=== PATIENT | male | born 1950 | race African-American/Black ===

== ENCOUNTER 2018-12-29 23:21 | Inpatient (IN) | payer MEDICAID ==
[~2018-12-29] VITALS: Ht 162.6 cm; Wt 69.9 kg
[2018-12-29 23:23] VITALS: BP 190/98
--- NOTE | 2018-12-29 23:25 | NUR ---
ED Nurse Note: pt brought in by [facility] ambulance unit # [id number] via gurney from [facility]. C/C of bloody stool. noted with red stool this morning.
[2018-12-29] MEDS ORDERED: COLACE100 MG ORAL (23:29)
[2018-12-29] MEDS ORDERED: DULCOLAX10 MG RC (23:29)
[2018-12-29] MEDS ORDERED: CRANBERRY450 M5 PO (23:29)
[2018-12-29] MEDS ORDERED: ASPIRIN-LOW81 MG ORAL (23:29)
[2018-12-29] MEDS ORDERED: DILTIAZEM HCL120 MG PO (23:29)
[2018-12-29] MEDS ORDERED: ENALAPRIL MALEA20 MG ORAL (23:29)
[2018-12-29] MEDS ORDERED: LIPITOR80 MG ORAL (23:29)
[2018-12-29] MEDS ORDERED: MOM30 ML ORAL (23:29)
[2018-12-29] MEDS ORDERED: FLEET ENEMA133 M1 RC (23:29)
[2018-12-29] MEDS ORDERED: VITAMIN D400 INTLU ORAL (23:29)
[2018-12-29] MEDS ORDERED: ACETAMINOPHEN325 M1 ORAL (23:29)
[2018-12-29] MEDS ORDERED: METOPROLOL TAR100 MG ORAL (23:29)
[2018-12-29] MEDS ORDERED: SENNA LAXATIVE8.6 MG PO (23:29)
[2018-12-29 23:54] LABS: BASOPHILS % (AUTO) 1.6 % (0.0-2.0); EOSINOPHILS % (AUTO) 7.6 % (0.0-3.0); HEMATOCRIT 46.5 % (42.0-52.0); HEMOGLOBIN 15.3 G/DL (14.2-18.0); LYMPHOCYTES % (AUTO) 32.1 % (20.0-45.0); MEAN CORPUSCULAR VOLUME 92 FL (80-99); MONOCYTES % (AUTO) 10.1 % (1.0-10.0); NEUTROPHILS % (AUTO) 48.6 % (45.0-75.0); PLATELET COUNT 280 K/UL (150-450); RED BLOOD COUNT 5.03 M/UL (4.70-6.10); RED CELL DISTRIBUTION WIDTH 13.5 % (11.6-14.8); WHITE BLOOD COUNT 6.6 K/UL (4.8-10.8)
[2018-12-29 23:56] LABS: APPEARANCE,URINE CLEAR; BILIRUBIN, URINE NEGATIVE (NEGATIVE); COLOR,URINE PALE YELLOW; GLUCOSE, URINE (UA) NEGATIVE (NEGATIVE); KETONES,URINE NEGATIVE (NEGATIVE); LEUKOCYTE ESTERASE ,URINE 1+ (NEGATIVE); NITRITE,URINE NEGATIVE (NEGATIVE); PH,URINE 6 (4.5-8.0); PROTEIN,URINE NEGATIVE (NEGATIVE); UROBILINOGEN,URINE NORMAL MG/DL (0.0-1.0)
--- NOTE | 2018-12-30 00:01 | NUR ---
ED Nurse Note: pt had a BM, soft, browinsh rednish in color.
[2018-12-30 00:07] LABS: ANION GAP 4 mmol/L (5-15); BLOOD UREA NITROGEN 21 mg/dL (7-18); CARBON DIOXIDE 28 MMOL/L (21-32); CHLORIDE 106 MMOL/L (98-107); POTASSIUM 4.6 MMOL/L (3.5-5.1); SODIUM 138 MMOL/L (136-145)
[2018-12-30 00:09] LABS: INR 1.1 (0.9-1.1)
[2018-12-30 00:11] LABS: ALANINE AMINOTRANSFERASE 35 U/L (12-78); ALBUMIN 2.8 G/DL (3.4-5.0); ALBUMIN/GLOBULIN RATIO 0.6 (1.0-2.7); ALKALINE PHOSPHATASE 91 U/L (46-116); ASPARTATE AMINO TRANSFERASE 26 U/L (15-37); BILIRUBIN,TOTAL 0.3 MG/DL (0.2-1.0)
[2018-12-30] MEDS: D5NS 1,000 ML IV SCH ×3 (00:54→17:18)
[2018-12-30] MEDS ORDERED: Miralax 17gm pkt ORAL PRN (01:00)
[2018-12-30] MEDS ORDERED: Nitroglycerin Subl 0.4mg tab SL PRN (01:00)
[2018-12-30] MEDS ORDERED: Morphine Sulfate 2mg/ml Inj(IV/IM USE ONLY) IVP PRN (01:00)
[2018-12-30] MEDS ORDERED: Phytonadione 10 MG in D5W 55 ML IVPB ONE (01:00)
--- NOTE | 2018-12-30 01:15 | NUR ---
NURSE NOTES: Received patient from Marci MENDOZA. Patient is awake, in bed, clean with no signs of acute distress. Pt is on RA, saturating at 96%, nonverbal with eyes open and occasionally tracking, and NPO. No skin issues found, one bowl movement during assessment, condom cath placed, and belongings noted. BP 198/99 pulse of 75; Dr. Huertas notified. Pt on electronic device monitor, bed at its lowest position, call light in reach, and X 3 bedrails are up. Addendum: 12/30/18 at 0645 by Paul Zimmer RN Time: correction 0119
--- NOTE | 2018-12-30 01:18 | NUR ---
ED Nurse Note: pt brought up to SDU room 239-1 via stephenrsheila. VSS. Report given to REJI Miller.
--- NOTE | 2018-12-30 02:44 | NUR ---
NURSE NOTES: Patients BP is 187/117 pules of 65 with no signs of distress. Dr. Huertas notified.
[2018-12-30 04:00] VITALS: BP 159/113
--- NOTE | 2018-12-30 06:44 | NUR ---
NURSE NOTES: Left a message with Dr Huertas to continue home medications. No call back since admission.
--- NOTE | 2018-12-30 07:10 | NUR ---
HAND-OFF: Report given to Laurie Bradshaw RN.
--- NOTE | 2018-12-30 07:20 | NUR ---
NURSE NOTES: Received the patient from REJI Miller. Patient is awake, opens eyes spontaneously, able to follow simple commands, non-verbal. SR HR 60s noted on the monitor. On room air. No s/sx of pain noted at this time. patient kept NPO. Patient on condom cath. Left wrist 20G and right wrist 20G intact, running D5NS at 100ml/hr. Bed in lowest position, locked, side rails upx3. Bed alarm on. Call light within reach. Will continue to monitor.
[2018-12-30 08:00] VITALS: BP 135/94
--- NOTE | 2018-12-30 10:00 | NUR ---
NURSE NOTES: Patient was turned and repositioned. patient kept clean and dry.
--- NOTE | 2018-12-30 11:00 | NUR ---
NURSE NOTES: patient had a small brown normal bm x1. No active bleeding noted.
[2018-12-30 12:00] VITALS: BP 153/103
--- NOTE | 2018-12-30 12:06 | Consultation ---
History of Present Illness General Date patient seen: Dec 30, 2018 Chief Complaint: Gastrointestinal Bleed Present Illness Allergies: Coded Allergies: No Known Allergies (Unverified , 12/29/18) Medication History Scheduled Aspirin (Aspirin EC), 325 MG ORAL DAILY, (Reported) Atorvastatin (Lipitor), 40 MG ORAL BEDTIME, (Reported) Diltiazem Hcl (Diltiazem Hcl), 120 MG PO DAILY, (Reported) Docusate Sodium* (Colace*), 100 MG ORAL DAILY, (Reported) Enalapril Maleate* (Enalapril Maleate*), 40 MG ORAL DAILY, (Reported) Magnesium Hydroxide (Milk of Magnesia), 30 ML ORAL DAILY, (Reported) Metoprolol Tartrate* (Metoprolol Tartrate*), 100 MG ORAL EVERY 12 HOURS, ( Reported) Sennosides (Senna Laxative), 2 TAB-CAP PO QHS, (Reported) Vitamin D (Vitamin D3), 5,000 UNITS ORAL DAILY, (Reported) Scheduled PRN Acetaminophen* (Acetaminophen 325MG Tablet*), 325 MG ORAL Q4H PRN for For Pain, (Reported) Acetaminophen* (Acetaminophen 325MG Tablet*), 325 MG ORAL Q4H PRN for Mild Pain/ Temp > 100.5, (Reported) Miscellaneous Medications Bisacodyl (Dulcolax), 10 MG RC, (Reported) Cranberry Fruit (Cranberry), 450 MG PO, (Reported) Na Phos,M-B/Na Phos,Di-Ba (Fleet Enema), 133 ML RC, (Reported) Patient History Healthcare decision maker SELF Resuscitation status Advanced Directive on File Past Medical/Surgical History Past Medical/Surgical History: (1) Aphasia (2) 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 stroke (3) History of CVA (cerebrovascular accident) (4) Psychosis (5) Essential hypertension Review of Systems All Other Systems: negative except mentioned in HPI Physical Exam General Appearance: WD/WN Lines, tubes and drains: peripheral HEENT: normocephalic, anicteric Neck: non-tender, normal alignment Respiratory/Chest: chest wall non-tender, lungs clear Breasts: no masses Cardiovascular/Chest: normal peripheral pulses, regular rhythm Abdomen: normal bowel sounds Genitourinary/Rectal: normal genital exam, normal rectal exam Extremities: normal range of motion Last 24 Hour Vital Signs Date Time Temp Pulse Resp B/P (MAP) Pulse Ox O2 Delivery O2 Flow Rate FiO2 12/30/18 08:00 97.3 70 17 135/94 (108) 97 12/30/18 08:00 68 12/30/18 08:00 Room Air 12/30/18 04:00 65 12/30/18 04:00 Room Air 12/30/18 04:00 96.0 68 18 159/113 (128) 96 12/30/18 02:01 Room Air 12/30/18 01:18 98.4 85 20 152/84 98 Room Air 12/29/18 23:23 87 Room Air 97 12/29/18 23:23 98.8 84 18 190/98 98 Room Air 12/29/18 23:17 98.1 65 18 132/80 (97) 95 Room Air Intake and Output 12/29/18 12/30/18 19:00 07:00 Intake Total 100 ml Output Total 600 ml Balance -500 ml Intake Oral 0 ml IV Total 100 ml Output Urine Total 600 ml # Voids 2 # Bowel Movements 2 Laboratory Tests Test 12/29/18 23:30 White Blood Count 6.6 K/UL (4.8-10.8) Red Blood Count 5.03 M/UL (4.70-6.10) Hemoglobin 15.3 G/DL (14.2-18.0) Hematocrit 46.5 % (42.0-52.0) Mean Corpuscular Volume 92 FL (80-99) Mean Corpuscular Hemoglobin 30.5 PG (27.0-31.0) Mean Corpuscular Hemoglobin Concent 33.0 G/DL (32.0-36.0) Red Cell Distribution Width 13.5 % (11.6-14.8) Platelet Count 280 K/UL (150-450) Mean Platelet Volume 4.7 FL (6.5-10.1) L Neutrophils (%) (Auto) 48.6 % (45.0-75.0) Lymphocytes (%) (Auto) 32.1 % (20.0-45.0) Monocytes (%) (Auto) 10.1 % (1.0-10.0) H Eosinophils (%) (Auto) 7.6 % (0.0-3.0) H Basophils (%) (Auto) 1.6 % (0.0-2.0) Prothrombin Time 11.4 SEC (9.30-11.50) Prothromb Time International Ratio 1.1 (0.9-1.1) Activated Partial Thromboplast Time 33 SEC (23-33) Urine Color Pale yellow Urine Appearance Clear Urine pH 6 (4.5-8.0) Urine Specific [place] 1.010 (1.005-1.035) Urine Protein Negative (NEGATIVE) Urine Glucose (UA) Negative (NEGATIVE) Urine Ketones Negative (NEGATIVE) Urine Blood 1+ (NEGATIVE) H Urine Nitrite Negative (NEGATIVE) Urine Bilirubin Negative (NEGATIVE) Urine Urobilinogen Normal MG/DL (0.0-1.0) Urine Leukocyte Esterase 1+ (NEGATIVE) H Urine RBC 0-2 /HPF (0 - 0) H Urine WBC 0-2 /HPF (0 - 0) Urine Squamous Epithelial Cells None /LPF (NONE/OCC) Urine Bacteria None /HPF (NONE) Sodium Level 138 MMOL/L (136-145) Potassium Level 4.6 MMOL/L (3.5-5.1) Chloride Level 106 MMOL/L (98-107) Carbon Dioxide Level 28 MMOL/L (21-32) Anion Gap 4 mmol/L (5-15) L Blood Urea Nitrogen 21 mg/dL (7-18) H Creatinine 1.0 MG/DL (0.55-1.30) Estimat Glomerular Filtration Rate > 60 mL/min (>60) Glucose Level 92 MG/DL (74-106) Calcium Level 9.0 MG/DL (8.5-10.1) Total Bilirubin 0.3 MG/DL (0.2-1.0) Aspartate Amino Transf (AST/SGOT) 26 U/L (15-37) Alanine Aminotransferase (ALT/SGPT) 35 U/L (12-78) Alkaline Phosphatase 91 U/L (46-116) Troponin I 0.133 ng/mL (0.000-0.056) Total Protein 7.6 G/DL (6.4-8.2) Albumin 2.8 G/DL (3.4-5.0) L Globulin 4.8 g/dL Albumin/Globulin Ratio 0.6 (1.0-2.7) L Lipase 121 U/L (73-393) Microbiology Date/Time Source Procedure Growth Status 12/29/18 23:30 Rectum Received Height (Feet): 5 Height (Inches): 7.00 Weight (Pounds): 154 Medications Current Medications Medications (Trade) Dose Ordered Sig/Barby Route PRN Reason Start Time Stop Time Status Last Admin Dose Admin Acetaminophen (Tylenol) 650 mg Q4H PRN ORAL fever 12/30/18 01:00 01/29/19 00:59 Dextrose (Dextrose 50%) 25 ml Q30M PRN IV Hypoglycemia 12/30/18 01:00 01/29/19 00:59 Dextrose (Dextrose 50%) 50 ml Q30M PRN IV Hypoglycemia 12/30/18 01:00 01/29/19 00:59 Dextrose/Sodium Chloride 1,000 ml @ 100 mls/hr Q10H IV 12/30/18 00:54 01/29/19 00:53 12/30/18 00:54 Diphenhydramine HCl (Benadryl) 25 mg Q6H PRN ORAL Itching/Pruritis 12/30/18 01:00 01/29/19 00:59 Morphine Sulfate (Morphine Sulfate) 2 mg Q4H PRN IVP severe Pain (Pain Scale 7-10) 12/30/18 01:00 01/06/19 00:59 Nitroglycerin (Ntg) 0.4 mg Q5M X 3 DOSES PRN SL Prn Chest Pain 12/30/18 01:00 01/29/19 00:59 Ondansetron HCl (Zofran) 4 mg Q6H PRN IVP Nausea & Vomiting 12/30/18 01:00 01/29/19 00:59 Polyethylene Glycol (Miralax) 17 gm HSPRN PRN ORAL Constipation 12/30/18 01:00 01/29/19 00:59 Temazepam (Restoril) 15 mg HSPRN PRN ORAL Insomnia 12/30/18 01:00 01/06/19 00:59 Assessment/Plan Problem List: (1) Aphasia ICD Codes: R47.01 - Aphasia SNOMED: 10972850 (2) 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 stroke ICD Codes: I69.359 - Hemiplegia and hemiparesis following cerebral infarction affecting unspecified side SNOMED: 462984067 (3) History of CVA (cerebrovascular accident) ICD Codes: Z86.73 - Personal history of transient ischemic attack (TIA), and cerebral infarction without residual deficits SNOMED: 598318377 (4) Psychosis ICD Codes: F29 - Unspecified psychosis not due to a substance or known physiological condition SNOMED: 06037783 (5) Essential hypertension ICD Codes: I10 - Essential (primary) hypertension SNOMED: 08536370 (6) GI bleed ICD Codes: K92.2 - Gastrointestinal hemorrhage, unspecified SNOMED: 15407313 Assessment/Plan: npo iv fluids gi evaluation Joy Huertas MD Dec 30, 2018 12:06
--- NOTE | 2018-12-30 12:12 | General Progress Note ---
Assessment/Plan Problem List: (1) Aphasia ICD Codes: R47.01 - Aphasia SNOMED: 29756219 (2) 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 stroke ICD Codes: I69.359 - Hemiplegia and hemiparesis following cerebral infarction affecting unspecified side SNOMED: 146975855 (3) History of CVA (cerebrovascular accident) ICD Codes: Z86.73 - Personal history of transient ischemic attack (TIA), and cerebral infarction without residual deficits SNOMED: 766129458 (4) Essential hypertension ICD Codes: I10 - Essential (primary) hypertension SNOMED: 26507851 (5) GI bleed ICD Codes: K92.2 - Gastrointestinal hemorrhage, unspecified SNOMED: 28244936 Assessment/Plan: no active GI bleed per nurses stable H&H fu stool ob swallow eval cardiology eval given elevated trop Subjective ROS Limited/Unobtainable: No Allergies: Coded Allergies: No Known Allergies (Unverified , 12/29/18) Objective Last 24 Hour Vital Signs Date Time Temp Pulse Resp B/P (MAP) Pulse Ox O2 Delivery O2 Flow Rate FiO2 12/30/18 12:00 Room Air 12/30/18 08:00 97.3 70 17 135/94 (108) 97 12/30/18 08:00 68 12/30/18 08:00 Room Air 12/30/18 04:00 65 12/30/18 04:00 Room Air 12/30/18 04:00 96.0 68 18 159/113 (128) 96 12/30/18 02:01 Room Air 12/30/18 01:18 98.4 85 20 152/84 98 Room Air 12/29/18 23:23 87 Room Air 97 12/29/18 23:23 98.8 84 18 190/98 98 Room Air 12/29/18 23:17 98.1 65 18 132/80 (97) 95 Room Air Intake and Output 12/29/18 12/30/18 19:00 07:00 Intake Total 100 ml Output Total 600 ml Balance -500 ml Intake Oral 0 ml IV Total 100 ml Output Urine Total 600 ml # Voids 2 # Bowel Movements 2 Laboratory Tests 12/29/18 23:30: White Blood Count 6.6, Red Blood Count 5.03, Hemoglobin 15.3, Hematocrit 46.5, Mean Corpuscular Volume 92, Mean Corpuscular Hemoglobin 30.5, Mean Corpuscular Hemoglobin Concent 33.0, Red Cell Distribution Width 13.5, Platelet Count 280, Mean Platelet Volume 4.7L, Neutrophils (%) (Auto) 48.6, Lymphocytes (%) (Auto) 32.1, Monocytes (%) (Auto) 10.1H, Eosinophils (%) (Auto) 7.6H, Basophils (%) ( Auto) 1.6, Prothrombin Time 11.4, Prothromb Time International Ratio 1.1, Activated Partial Thromboplast Time 33, Urine Color Pale yellow, Urine Appearance Clear, Urine pH 6, Urine Specific [place] 1.010, Urine Protein Negative, Urine Glucose (UA) Negative, Urine Ketones Negative, Urine Blood 1+H, Urine Nitrite Negative, Urine Bilirubin Negative, Urine Urobilinogen Normal, Urine Leukocyte Esterase 1+H, Urine RBC 0-2H, Urine WBC 0-2, Urine Squamous Epithelial Cells None, Urine Bacteria None, Sodium Level 138, Potassium Level 4.6, Chloride Level 106, Carbon Dioxide Level 28, Anion Gap 4L, Blood Urea Nitrogen 21H, Creatinine 1.0, Estimat Glomerular Filtration Rate > 60, Glucose Level 92, Calcium Level 9.0, Total Bilirubin 0.3, Aspartate Amino Transf (AST/ SGOT) 26, Alanine Aminotransferase (ALT/SGPT) 35, Alkaline Phosphatase 91, Troponin I 0.133H, Total Protein 7.6, Albumin 2.8L, Globulin 4.8, Albumin/ Globulin Ratio 0.6L, Lipase 121 Height (Feet): 5 Height (Inches): 7.00 Weight (Pounds): 154 General Appearance: no apparent distress EENT: normal ENT inspection Neck: supple Cardiovascular: normal rate Respiratory/Chest: decreased breath sounds Abdomen: normal bowel sounds, non tender, soft Extremities: non-tender Bib Banegas MD Dec 30, 2018 12:12
--- NOTE | 2018-12-30 12:56 | NUR ---
HAND-OFF: Report given to REJI Godinez. Patient in stable condition.
--- NOTE | 2018-12-30 13:00 | NUR ---
NURSE NOTES: Assumed pt care,report received from Gabby MENDOZA.Pt in bed asleep noted no resp distress,no signs of pain or discomfort,SR on the monitor IV sites x2, Lt wrist and Rt wrist intact with IVF D5 NS at 100 ml/hr,skin warm and dry,SR up x2 HOB elevated,bed lock in lowest position,will continue to monitor pt.
--- NOTE | 2018-12-30 13:03 | NUR ---
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 98.0 HR 65 RR 18 B/P 132/80 TROP 0.133 BUN 21 IS: ADMITTED TO STEP DOWN IS: SWALLOW EVAL STOOL OB STEP DOWN STATUS DCP RETURN TO [facility]
[2018-12-30 16:00] VITALS: BP 187/111
[2018-12-30] MEDS ORDERED: Tubing IV Secondary IV ONE (16:59)
--- NOTE | 2018-12-30 18:00 | NUR ---
NURSE NOTES: Pt resting quietly in bed ,stable no distress presented during the shift.
--- NOTE | 2018-12-30 19:06 | NUR ---
HAND-OFF: Report given to Mariama No RN,Pt for transfer to Med-Surg,but no bed available yet.
--- NOTE | 2018-12-30 19:10 | NUR ---
NURSE NOTES: Report received from REJI Godinez. Observed pt lying in the bed, awake, responsive to voice, but non-verbal. SR with hall monitor. Abd, soft and round. Condom cath intact and draining well. IV on R W 20G running D5 NS 100cc/hr. L W 20G, SL. BP of 185/110 noted and notified to and new order will be carried out. Bed in the lowest position. Side rails up x3. Call light within reach. Will continue to monitor.
[2018-12-30 20:00] VITALS: BP 185/110
--- NOTE | 2018-12-30 20:11 | History & Physical ---
History and Physical History & Physicial Dictated for Int Med-Dr Dunn no. [id number] Nicholas Chandler MD Dec 30, 2018 20:11
[2018-12-30 21:05] VITALS: BP 151/101
--- NOTE | 2018-12-30 21:06 | NUR ---
NURSE NOTES: BP 151/101 noted. SR with HR 80s. No signs of pain and distress noted. Will continue to monitor.
--- NOTE | 2018-12-30 22:30 | History and Physical Report ---
DATE OF ADMISSION: 12/30/2018 CHIEF COMPLAINT: The patient is a 68-year-old female, who presents with a chief complaint of rectal bleeding. HISTORY OF PRESENT ILLNESS: The patient is a resident of [facility]. The patient herself is aphasic. Much of the history and physical is taken from the patient's chart. According to the staff at [facility], the patient began to experience rectal bleeding on December 29, 2018. The patient was transported to [facility] for evaluation. The patient was admitted for gastrointestinal hemorrhage. REVIEW OF SYSTEMS: Unable to assess secondary to the patient's mental status. PAST MEDICAL HISTORY: Significant for: 1. Hypertension 2. Hypercholesterolemia. 3. Cerebrovascular disease, status post cerebrovascular accident. 4. Hemiplegia. 5. Aphasia. PAST SURGICAL HISTORY: Unknown. CURRENT MEDICATIONS: 1. Tylenol 650 mg p.o. q.4 hours p.r.n. 2. Aspirin 81 mg p.o. daily. 3. Lipitor 40 mg p.o. at bedtime. 4. Diltiazem 120 mg p.o. daily. 5. Enalapril 20 mg 2 tablets p.o. daily. 6. Metoprolol 100 mg p.o. twice daily. 7. Vitamin D 400 units p.o. daily. ALLERGIES: No known drug allergies. SOCIAL HISTORY: The patient denies tobacco or alcohol use. PHYSICAL EXAMINATION: VITAL SIGNS: Temperature 98.1, respirations 18, pulse 65, and blood pressure 132/80. GENERALLY: The patient is a well-developed and well-nourished female, in no apparent distress. HEENT: Eyes, pupils are equal and responsive to light and accommodation. Extraocular movements are intact. NECK: Supple without lymphadenopathy. CHEST: Lungs are clear to auscultation bilaterally without wheezes or rales. CARDIOVASCULAR: Regular rhythm and rate. S1 and S2 are normal without murmurs, rubs, or gallops. ABDOMEN: Soft, nontender, and nondistended. Positive bowel sounds. No evidence of hepatosplenomegaly. Currently, no rebound or guarding noted. EXTREMITIES: Negative for clubbing, cyanosis, or edema. RECTAL/GENITAL: Not performed. NEUROLOGIC: Cranial nerves II through XII are grossly intact. LABORATORY STUDIES: WBC 6.6, hemoglobin 15.3, hematocrit 46.5, and platelets 280,000. Sodium 138, potassium 4.6, chloride 106, CO2 20, BUN 21, creatinine 1.0, and glucose 92. ASSESSMENT: This is a 68-year-old female. 1. Gastrointestinal hemorrhage. 2. Hypertension. 3. Hypercholesterolemia. 4. Cerebrovascular disease. 5. Hemiplegia. 6. Aphasia. 7. Elevated troponin. TREATMENT: 1. Gastrointestinal hemorrhage. A Gastroenterology consultation has been obtained with Dr. Bib Banegas. We will follow recommendations of Gastroenterology. 2. Hypertension. Continue enalapril and diltiazem as above. Continue metoprolol as above. 3. Hypercholesterolemia. Continue atorvastatin as above. 4. Cerebrovascular disease/hemiplegia/aphasia. Hold aspirin for now due to gastrointestinal hemorrhage. 5. Elevated troponin. A Cardiology consultation is pending. Nicholas Chandler M.D. DR: REAGAN JOB#: [id number] CC:
--- NOTE | 2018-12-30 23:23 | NUR ---
NURSE NOTES: Black tarry stool x1 noted. Bed bath given. BP 125/85. SR with HR 84. No signs of distress noted. Pt sleeping comfortably in the bed. Will continue to monitor.
[2018-12-31] VITALS (7 sets, daily range): BP systolic 125–161; BP diastolic 75–99
[2018-12-31] MEDS: D5NS 1,000 ML IV SCH ×2 (03:55→17:21)
--- NOTE | 2018-12-31 04:00 | NUR ---
NURSE NOTES: Observed pt sleeping in the bed. No signs of pain and distress noted. SR and BP of 128/75 noted. Will continue to monitor.
[2018-12-31 04:52] LABS: HEMATOCRIT 41.9 % (42.0-52.0); HEMOGLOBIN 13.9 G/DL (14.2-18.0); MEAN CORPUSCULAR VOLUME 93 FL (80-99); PLATELET COUNT 265 K/UL (150-450); RED BLOOD COUNT 4.48 M/UL (4.70-6.10); RED CELL DISTRIBUTION WIDTH 12.9 % (11.6-14.8)
[2018-12-31 05:01] LABS: INR 1.1 (0.9-1.1)
[2018-12-31 05:24] LABS: ALANINE AMINOTRANSFERASE 29 U/L (12-78); ALBUMIN 2.8 G/DL (3.4-5.0); ALBUMIN/GLOBULIN RATIO 0.7 (1.0-2.7); ALKALINE PHOSPHATASE 77 U/L (46-116); AMYLASE 118 U/L (25-115); ANION GAP 6 mmol/L (5-15); ASPARTATE AMINO TRANSFERASE 17 U/L (15-37); BILIRUBIN,TOTAL 0.4 MG/DL (0.2-1.0); BLOOD UREA NITROGEN 23 mg/dL (7-18); CALCIUM 8.2 MG/DL (8.5-10.1); CARBON DIOXIDE 25 MMOL/L (21-32); CHLORIDE 109 MMOL/L (98-107); SODIUM 140 MMOL/L (136-145)
--- NOTE | 2018-12-31 06:00 | NUR ---
NURSE NOTES: Left a message to Dr. Huertas regarding troponin level trending up. Awaiting call back.
--- NOTE | 2018-12-31 07:05 | NUR ---
HAND-OFF: Report given to REJI Lucio. No acute distress noted at this time.
--- NOTE | 2018-12-31 07:12 | NUR ---
NURSE NOTES: Received report from REJI Leslie. Patient is resting in bed, in stable condition. No s/sx of SOB, breathing is even and unlabored, on room air. Observed no presence pain or discomfort at this time. Bed is in lowest position, brakes engaged. Call light is kept within easy reach. Will continue to monitor patient.
--- NOTE | 2018-12-31 09:15 | General Progress Note ---
Assessment/Plan Problem List: (1) Aphasia ICD Codes: R47.01 - Aphasia SNOMED: 27910795 (2) 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 stroke ICD Codes: I69.359 - Hemiplegia and hemiparesis following cerebral infarction affecting unspecified side SNOMED: 950681598 (3) History of CVA (cerebrovascular accident) ICD Codes: Z86.73 - Personal history of transient ischemic attack (TIA), and cerebral infarction without residual deficits SNOMED: 919196768 (4) Essential hypertension ICD Codes: I10 - Essential (primary) hypertension SNOMED: 44890677 (5) GI bleed ICD Codes: K92.2 - Gastrointestinal hemorrhage, unspecified SNOMED: 51554750 Assessment/Plan: start ppi BID fu stool ob swallow eval cardiology eval given elevated trop and plan GI procedures when cleared fu H&H Subjective ROS Limited/Unobtainable: No Allergies: Coded Allergies: No Known Allergies (Unverified , 12/29/18) Subjective black tarry stool Objective Last 24 Hour Vital Signs Date Time Temp Pulse Resp B/P (MAP) Pulse Ox O2 Delivery O2 Flow Rate FiO2 12/31/18 08:00 Room Air 12/31/18 08:00 93 12/31/18 08:00 97.6 84 18 125/82 (96) 97 12/31/18 04:00 97.3 84 16 128/75 (92) 97 12/31/18 04:00 88 12/31/18 04:00 Room Air 12/31/18 00:00 Room Air 12/31/18 00:00 91 12/31/18 00:00 97.7 80 16 125/85 (98) 97 12/30/18 21:05 151/101 (118) 12/30/18 20:00 79 12/30/18 20:00 Room Air 12/30/18 20:00 97.3 80 16 185/110 (135) 97 12/30/18 19:49 165/95 12/30/18 16:00 Room Air 12/30/18 16:00 96.8 68 20 187/111 (136) 97 12/30/18 15:30 69 12/30/18 14:24 Room Air 12/30/18 12:00 97.1 69 16 153/103 (120) 96 12/30/18 12:00 Room Air 12/30/18 11:31 83 Intake and Output 12/30/18 12/31/18 19:00 07:00 Intake Total 1100 ml 1100 ml Output Total 1050 ml 300 ml Balance 50 ml 800 ml Intake Oral 0 ml IV Total 1100 ml 1100 ml Output Urine Total 1050 ml 300 ml # Voids 1 # Bowel Movements 3 2 Laboratory Tests 12/30/18 16:45: Stool Occult Blood [Pending] 12/31/18 03:40: White Blood Count 9.0, Red Blood Count 4.48L, Hemoglobin 13.9L, Hematocrit 41.9L , Mean Corpuscular Volume 93, Mean Corpuscular Hemoglobin 31.1H, Mean Corpuscular Hemoglobin Concent 33.2, Red Cell Distribution Width 12.9, Platelet Count 265, Mean Platelet Volume 5.1L, Neutrophils (%) (Auto) , Lymphocytes (%) ( Auto) , Monocytes (%) (Auto) , Eosinophils (%) (Auto) , Basophils (%) (Auto) , Prothrombin Time 11.4, Prothromb Time International Ratio 1.1, Activated Partial Thromboplast Time 30, Sodium Level 140, Potassium Level 4.0, Chloride Level 109H, Carbon Dioxide Level 25, Anion Gap 6, Blood Urea Nitrogen 23H, Creatinine 1.0, Estimat Glomerular Filtration Rate > 60, Glucose Level 161H, Calcium Level 8.2L, Total Bilirubin 0.4, Aspartate Amino Transf (AST/SGOT) 17, Alanine Aminotransferase (ALT/SGPT) 29, Alkaline Phosphatase 77, Troponin I 0.142H, Total Protein 6.7, Albumin 2.8L, Globulin 3.9, Albumin/Globulin Ratio 0.7L, Amylase Level 118H, Lipase 113 Height (Feet): 5 Height (Inches): 7.00 Weight (Pounds): 154 General Appearance: no apparent distress EENT: normal ENT inspection Neck: normal alignment Cardiovascular: normal rate Respiratory/Chest: decreased breath sounds Abdomen: normal bowel sounds, non tender, soft Extremities: non-tender Bib Banegas MD Dec 31, 2018 09:15
[2018-12-31] MEDS: Pantoprazole Inj IV SCH ×2 (09:36→20:41)
--- NOTE | 2018-12-31 10:10 | NUR ---
NURSE NOTES: Per Dr. Huertas contact family to verify if contact number is reachable, in case in need of consent acquisition and if so, family must come into hospital in order to fill out consent. Noted.
--- NOTE | 2018-12-31 10:47 | NUR ---
SWALLOW/SPEECH THERAPY NOTE: REFERRED BY DR TORRES FOR A SWALLOWING EVALUATION, SEE FULL REPORT IN ST [facility]ARE ACTIVITY SECTION. 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 ON PUREED KARISHMA AND THIN LIQUIDS AT SNF AND NOW WITH GOOD INTAKE. ALERT BUT TENDS TO SQUINT HIS LEFT EYE. 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 POOR FOLLOWING ORAL COMMANDS AND NOT RECEPTIVE TO OPENING MOUTH NOR SHOWING TEETH UNLESS GIVEN FOOD/LIQUIDS TO APPRAISAL MANAGER NOR RN. DOES NOT NOD HEAD TO YES/NO QUESTIONS NOR GESTURE. 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 GIVEN THIN LIQUIDS VIA STRAW SEQUENTIAL SIPS, CAN SWALLOW SLOWLY WITH FAIR HYOLARYNGEAL EXCURSION BUT ONLY TOOK 3/4 OF THE LIQUID AND THEN STOPPED (? UNDERSTAND NEED TO FINISH THE 3 OZ (3 OZ WATER ALVARADO SWALLOW PROTOCOL). HE COUGHED ONLY WITH SEQUENTIAL SIPS AND NOT WITH ONE SIP AT A TIME (LUNGS CLEAR). GIVEN TSP PUREED, TOOK 7 SECONDS TO SWALLOW AND THEN SWALLOWED AGAIN SPONTANEOUSLY AFTER 2-4 SECONDS (? OROPHARYNGEAL RESIDUE WOULD NOT ALLOW ORAL INSPECTION) HAS MIN TEETH AND TAKE A LONG TIME TO SWALLOW SO WILL HOLD OFF ON MASTICATED SOLIDS FOR NOW. GOOD INTAKE FOR PUREED DIET NOW. RECOMMENDATIONS: COMPLETED MODIFIED BARIUM SWALLOW STUDY MBSS TO FURTHER ASSESS SWALLOW, DETERMINE SILENT ASPIRATION RISK/ETIOLOGY, AND ATTEMPT TRIAL TX. IF PO CONTINUES FOR QUALITY OF LIFE PURPOSES, CONTINUE WITH PUREED AND THIN LIQUIDS (ONE SIP ONLY NOT SEQUENTIAL) WITH POSTED ASPIRATION AND REFLUX PRECAUTIONS. PER SNF ON KARISHMA DIET (ADDED SINCE RD REPORT NOT IN) DYSPHAGIA MANAGEMENT AND TX AND COMPLETE SPEECH/LANGUAGE EVAL/TX EDUCATED/TRAINED MARINE ELECTRONICS TECHNICIANREJI FERNANDES IN POSTED ASPIRATION PRECAUTIONS. NEEDS ORAL CARE AND TEETH BRUSHING IF HE ALLOWS (DOES NOT ALLOW PER RN) D/W WHO AGREES WITH RECOMMENDATIONS.
[2018-12-31] MEDS ORDERED: D5NS 1000ml IV ONE (10:50)
--- NOTE | 2018-12-31 11:24 | Pulmonology Progress Note ---
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 Subjective ROS Limited/Unobtainable: No Constitutional: Reports: no symptoms HEENT: Repors: no symptoms Respiratory: Reports: no symptoms Allergies: Coded Allergies: No Known Allergies (Unverified , 12/29/18) Objective Last 24 Hour Vital Signs Date Time Temp Pulse Resp B/P (MAP) Pulse Ox O2 Delivery O2 Flow Rate FiO2 12/31/18 08:00 Room Air 12/31/18 08:00 93 12/31/18 08:00 97.6 84 18 125/82 (96) 97 12/31/18 04:00 97.3 84 16 128/75 (92) 97 12/31/18 04:00 88 12/31/18 04:00 Room Air 12/31/18 00:00 Room Air 12/31/18 00:00 91 12/31/18 00:00 97.7 80 16 125/85 (98) 97 12/30/18 21:05 151/101 (118) 12/30/18 20:00 79 12/30/18 20:00 Room Air 12/30/18 20:00 97.3 80 16 185/110 (135) 97 12/30/18 19:49 165/95 12/30/18 16:00 Room Air 12/30/18 16:00 96.8 68 20 187/111 (136) 97 12/30/18 15:30 69 12/30/18 14:24 Room Air 12/30/18 12:00 97.1 69 16 153/103 (120) 96 12/30/18 12:00 Room Air 12/30/18 11:31 83 Intake and Output 12/30/18 12/31/18 19:00 07:00 Intake Total 1100 ml 1100 ml Output Total 1050 ml 300 ml Balance 50 ml 800 ml Intake Oral 0 ml IV Total 1100 ml 1100 ml Output Urine Total 1050 ml 300 ml # Voids 1 # Bowel Movements 3 2 General Appearance: no acute distress HEENT: normocephalic Cardiovascular: normal peripheral pulses, normal rate Abdomen: normal bowel sounds, no organomegaly Genitourinary: normal external genitalia Microbiology Date/Time Source Procedure Growth Status 12/29/18 23:30 Rectum Received Laboratory Tests 12/30/18 16:45: Stool Occult Blood [Pending] 12/31/18 03:40: White Blood Count 9.0, Red Blood Count 4.48L, Hemoglobin 13.9L, Hematocrit 41.9L , Mean Corpuscular Volume 93, Mean Corpuscular Hemoglobin 31.1H, Mean Corpuscular Hemoglobin Concent 33.2, Red Cell Distribution Width 12.9, Platelet Count 265, Mean Platelet Volume 5.1L, Neutrophils (%) (Auto) , Lymphocytes (%) ( Auto) , Monocytes (%) (Auto) , Eosinophils (%) (Auto) , Basophils (%) (Auto) , Prothrombin Time 11.4, Prothromb Time International Ratio 1.1, Activated Partial Thromboplast Time 30, Sodium Level 140, Potassium Level 4.0, Chloride Level 109H, Carbon Dioxide Level 25, Anion Gap 6, Blood Urea Nitrogen 23H, Creatinine 1.0, Estimat Glomerular Filtration Rate > 60, Glucose Level 161H, Calcium Level 8.2L, Total Bilirubin 0.4, Aspartate Amino Transf (AST/SGOT) 17, Alanine Aminotransferase (ALT/SGPT) 29, Alkaline Phosphatase 77, Troponin I 0.142H, Total Protein 6.7, Albumin 2.8L, Globulin 3.9, Albumin/Globulin Ratio 0.7L, Amylase Level 118H, Lipase 113 12/31/18 10:20: Troponin I 0.139H Current Medications Medications (Trade) Dose Ordered Sig/Barby Route PRN Reason Start Time Stop Time Status Last Admin Dose Admin Acetaminophen (Tylenol) 650 mg Q4H PRN ORAL fever 12/30/18 01:00 01/29/19 00:59 Clonidine HCl (Catapres Tab) 0.1 mg Q8H PRN ORAL For High Blood Pressure 12/30/18 19:30 01/29/19 19:29 12/30/18 19:49 Dextrose (Dextrose 50%) 25 ml Q30M PRN IV Hypoglycemia 12/30/18 01:00 01/29/19 00:59 Dextrose (Dextrose 50%) 50 ml Q30M PRN IV Hypoglycemia 12/30/18 01:00 01/29/19 00:59 Dextrose/Sodium Chloride 1,000 ml @ 100 mls/hr Q10H IV 12/30/18 00:54 01/29/19 00:53 12/31/18 03:55 Diphenhydramine HCl (Benadryl) 25 mg Q6H PRN ORAL Itching/Pruritis 12/30/18 01:00 01/29/19 00:59 Morphine Sulfate (Morphine Sulfate) 2 mg Q4H PRN IVP severe Pain (Pain Scale 7-10) 12/30/18 01:00 01/06/19 00:59 Nitroglycerin (Ntg) 0.4 mg Q5M X 3 DOSES PRN SL Prn Chest Pain 12/30/18 01:00 01/29/19 00:59 Ondansetron HCl (Zofran) 4 mg Q6H PRN IVP Nausea & Vomiting 12/30/18 01:00 01/29/19 00:59 Pantoprazole (Protonix) 40 mg EVERY 12 HOURS IV 12/31/18 09:30 01/30/19 09:29 12/31/18 09:36 Polyethylene Glycol (Miralax) 17 gm HSPRN PRN ORAL Constipation 12/30/18 01:00 01/29/19 00:59 Temazepam (Restoril) 15 mg HSPRN PRN ORAL Insomnia 12/30/18 01:00 01/06/19 00:59 Joy Huertas MD Dec 31, 2018 11:24
--- NOTE | 2018-12-31 12:00 | NUR ---
NURSE NOTES: Called Fidel Clemons, patient's brother and confirmed that Mr. Fidel Clemons is designated family member to make medical decisions for patient. Informed Mr. Fidel Clemons that if a consent is needed to be filled out, they must present themselves to facility in order to fill out consent. Mr. Fidel Clemons acknowledged understanding. Noted.
--- NOTE | 2018-12-31 14:30 | Cardiac Electrophysiology PN ---
Subjective Subjective [id number] Objective Last 24 Hour Vital Signs Date Time Temp Pulse Resp B/P (MAP) Pulse Ox O2 Delivery O2 Flow Rate FiO2 12/31/18 12:00 Room Air 12/31/18 12:00 98.0 96 18 144/84 (104) 100 12/31/18 12:00 89 12/31/18 08:00 Room Air 12/31/18 08:00 93 12/31/18 08:00 97.6 84 18 125/82 (96) 97 12/31/18 04:00 97.3 84 16 128/75 (92) 97 12/31/18 04:00 88 12/31/18 04:00 Room Air 12/31/18 00:00 Room Air 12/31/18 00:00 91 12/31/18 00:00 97.7 80 16 125/85 (98) 97 12/30/18 21:05 151/101 (118) 12/30/18 20:00 79 12/30/18 20:00 Room Air 12/30/18 20:00 97.3 80 16 185/110 (135) 97 12/30/18 19:49 165/95 12/30/18 16:00 Room Air 12/30/18 16:00 96.8 68 20 187/111 (136) 97 12/30/18 15:30 69 Intake and Output 12/30/18 12/31/18 19:00 07:00 Intake Total 1100 ml 1100 ml Output Total 1050 ml 300 ml Balance 50 ml 800 ml Intake Oral 0 ml IV Total 1100 ml 1100 ml Output Urine Total 1050 ml 300 ml # Voids 1 # Bowel Movements 3 2 Laboratory Tests Test 12/30/18 16:45 12/31/18 03:40 12/31/18 10:20 Stool Occult Blood Positive (NEGATIVE) White Blood Count 9.0 K/UL (4.8-10.8) Red Blood Count 4.48 M/UL (4.70-6.10) L Hemoglobin 13.9 G/DL (14.2-18.0) L Hematocrit 41.9 % (42.0-52.0) L Mean Corpuscular Volume 93 FL (80-99) Mean Corpuscular Hemoglobin 31.1 PG (27.0-31.0) H Mean Corpuscular Hemoglobin Concent 33.2 G/DL (32.0-36.0) Red Cell Distribution Width 12.9 % (11.6-14.8) Platelet Count 265 K/UL (150-450) Mean Platelet Volume 5.1 FL (6.5-10.1) L Neutrophils (%) (Auto) % (45.0-75.0) Lymphocytes (%) (Auto) % (20.0-45.0) Monocytes (%) (Auto) % (1.0-10.0) Eosinophils (%) (Auto) % (0.0-3.0) Basophils (%) (Auto) % (0.0-2.0) Prothrombin Time 11.4 SEC (9.30-11.50) Prothromb Time International Ratio 1.1 (0.9-1.1) Activated Partial Thromboplast Time 30 SEC (23-33) Sodium Level 140 MMOL/L (136-145) Potassium Level 4.0 MMOL/L (3.5-5.1) Chloride Level 109 MMOL/L (98-107) H Carbon Dioxide Level 25 MMOL/L (21-32) Anion Gap 6 mmol/L (5-15) Blood Urea Nitrogen 23 mg/dL (7-18) H Creatinine 1.0 MG/DL (0.55-1.30) Estimat Glomerular Filtration Rate > 60 mL/min (>60) Glucose Level 161 MG/DL (74-106) H Calcium Level 8.2 MG/DL (8.5-10.1) L Total Bilirubin 0.4 MG/DL (0.2-1.0) Aspartate Amino Transf (AST/SGOT) 17 U/L (15-37) Alanine Aminotransferase (ALT/SGPT) 29 U/L (12-78) Alkaline Phosphatase 77 U/L (46-116) Troponin I 0.142 ng/mL (0.000-0.056) 0.139 ng/mL (0.000-0.056) Total Protein 6.7 G/DL (6.4-8.2) Albumin 2.8 G/DL (3.4-5.0) L Globulin 3.9 g/dL Albumin/Globulin Ratio 0.7 (1.0-2.7) L Amylase Level 118 U/L (25-115) H Lipase 113 U/L (73-393) Microbiology Date/Time Source Procedure Growth Status 12/29/18 23:30 Rectum Received Juan Carlos Aguilar MD Dec 31, 2018 14:30
--- NOTE | 2018-12-31 14:43 | NUR ---
NURSE NOTES: Dr. Aguilar seen and examined patient. Per Dr. Aguilar ordered, STAT 2Dechocardiogram, troponin tomorrow morning. Dr. Aguilar aware of current troponin levels, acknowledged, ordered to contact him if tropnin level is above 0.5. Noted. Dr. Aguilar also made aware that per Dr. Martins, patient will need cardiology clearance for possible GI procedure. Also per Dr. Aguilar hold transfer to Telemetry at this time. Noted. All orders entered, noted, and carried out. Will continue to monitor patient.
--- NOTE | 2018-12-31 15:58 | Internal Med Progress Note ---
Subjective Physician Name Ted Dunn Attending Physician Ted Dunn MD Current Medications Medications (Trade) Dose Ordered Sig/Barby Route PRN Reason Start Time Stop Time Status Last Admin Dose Admin Acetaminophen (Tylenol) 650 mg Q4H PRN ORAL fever 12/30/18 01:00 01/29/19 00:59 Atorvastatin Calcium (Lipitor) 20 mg BEDTIME ORAL 12/31/18 21:00 01/30/19 20:59 Clonidine HCl (Catapres Tab) 0.1 mg Q8H PRN ORAL For High Blood Pressure 12/30/18 19:30 01/29/19 19:29 12/30/18 19:49 Dextrose (Dextrose 50%) 25 ml Q30M PRN IV Hypoglycemia 12/30/18 01:00 01/29/19 00:59 Dextrose (Dextrose 50%) 50 ml Q30M PRN IV Hypoglycemia 12/30/18 01:00 01/29/19 00:59 Dextrose/Sodium Chloride 1,000 ml @ 100 mls/hr Q10H IV 12/30/18 00:54 01/29/19 00:53 12/31/18 03:55 Diphenhydramine HCl (Benadryl) 25 mg Q6H PRN ORAL Itching/Pruritis 12/30/18 01:00 01/29/19 00:59 Metoprolol Tartrate (Lopressor) 25 mg Q12HR ORAL 12/31/18 21:00 01/30/19 20:59 Morphine Sulfate (Morphine Sulfate) 2 mg Q4H PRN IVP severe Pain (Pain Scale 7-10) 12/30/18 01:00 01/06/19 00:59 Nitroglycerin (Ntg) 0.4 mg Q5M X 3 DOSES PRN SL Prn Chest Pain 12/30/18 01:00 01/29/19 00:59 Ondansetron HCl (Zofran) 4 mg Q6H PRN IVP Nausea & Vomiting 12/30/18 01:00 01/29/19 00:59 Pantoprazole (Protonix) 40 mg EVERY 12 HOURS IV 12/31/18 09:30 01/30/19 09:29 12/31/18 09:36 Polyethylene Glycol (Miralax) 17 gm HSPRN PRN ORAL Constipation 12/30/18 01:00 01/29/19 00:59 Temazepam (Restoril) 15 mg HSPRN PRN ORAL Insomnia 12/30/18 01:00 01/06/19 00:59 Allergies: Coded Allergies: No Known Allergies (Unverified , 12/29/18) Subjective open eye , not verbal , awake, responsive, NAD, Hgb: drop to 13.9. Objective Last Vital Signs Date Time Temp Pulse Resp B/P (MAP) Pulse Ox O2 Delivery O2 Flow Rate FiO2 12/31/18 12:00 Room Air 12/31/18 12:00 98.0 96 18 144/84 (104) 100 12/29/18 23:23 97 Laboratory Tests Test 12/30/18 16:45 12/31/18 03:40 12/31/18 10:20 Stool Occult Blood Positive (NEGATIVE) White Blood Count 9.0 K/UL (4.8-10.8) Red Blood Count 4.48 M/UL (4.70-6.10) L Hemoglobin 13.9 G/DL (14.2-18.0) L Hematocrit 41.9 % (42.0-52.0) L Mean Corpuscular Volume 93 FL (80-99) Mean Corpuscular Hemoglobin 31.1 PG (27.0-31.0) H Mean Corpuscular Hemoglobin Concent 33.2 G/DL (32.0-36.0) Red Cell Distribution Width 12.9 % (11.6-14.8) Platelet Count 265 K/UL (150-450) Mean Platelet Volume 5.1 FL (6.5-10.1) L Neutrophils (%) (Auto) % (45.0-75.0) Lymphocytes (%) (Auto) % (20.0-45.0) Monocytes (%) (Auto) % (1.0-10.0) Eosinophils (%) (Auto) % (0.0-3.0) Basophils (%) (Auto) % (0.0-2.0) Prothrombin Time 11.4 SEC (9.30-11.50) Prothromb Time International Ratio 1.1 (0.9-1.1) Activated Partial Thromboplast Time 30 SEC (23-33) Sodium Level 140 MMOL/L (136-145) Potassium Level 4.0 MMOL/L (3.5-5.1) Chloride Level 109 MMOL/L (98-107) H Carbon Dioxide Level 25 MMOL/L (21-32) Anion Gap 6 mmol/L (5-15) Blood Urea Nitrogen 23 mg/dL (7-18) H Creatinine 1.0 MG/DL (0.55-1.30) Estimat Glomerular Filtration Rate > 60 mL/min (>60) Glucose Level 161 MG/DL (74-106) H Calcium Level 8.2 MG/DL (8.5-10.1) L Total Bilirubin 0.4 MG/DL (0.2-1.0) Aspartate Amino Transf (AST/SGOT) 17 U/L (15-37) Alanine Aminotransferase (ALT/SGPT) 29 U/L (12-78) Alkaline Phosphatase 77 U/L (46-116) Troponin I 0.142 ng/mL (0.000-0.056) 0.139 ng/mL (0.000-0.056) Total Protein 6.7 G/DL (6.4-8.2) Albumin 2.8 G/DL (3.4-5.0) L Globulin 3.9 g/dL Albumin/Globulin Ratio 0.7 (1.0-2.7) L Amylase Level 118 U/L (25-115) H Lipase 113 U/L (73-393) Microbiology Date/Time Source Procedure Growth Status 12/29/18 23:30 Rectum Received Intake and Output 12/30/18 12/31/18 19:00 07:00 Intake Total 1100 ml 1100 ml Output Total 1050 ml 300 ml Balance 50 ml 800 ml Intake Oral 0 ml IV Total 1100 ml 1100 ml Output Urine Total 1050 ml 300 ml # Voids 1 # Bowel Movements 3 2 Objective General: No acute distress, awake and responsive HEENT: NCAT, sclera anicteric, PERRL, EOMI, NG tube, RIJ TLC. Neck: Supple, no significant jugular venous distention, Lungs: fair inspiratory effort, , decrease air at bases,no Wheeze or Rales. Heart: Regular rate and rhythm, normal S1/S2, no murmur. Abdomen: soft, nontender, nondistended. Normoactive bowel sounds. : Rodriguez cath. Extremities: No Cyanosis , clubbing or edema. Neuro: CN 2-12 intact, not verbal minimal extremities movement. Skin: warm, no rash. Assessment/Plan Assessment/Plan 1. Rectal bleeding / Gastrointestinal hemorrhage. 2. Hypertension. 3. Hypercholesterolemia. 4. Cerebrovascular disease. 5. Hemiplegia. 6. Aphasia. 7. Elevated troponin. TREATMENT: 1. Gastrointestinal hemorrhage. A Gastroenterology consultation has been obtained with Dr. Bib Banegas. We will follow recommendations of Gastroenterology. 2. Hypertension. Continue enalapril and diltiazem as above. Continue metoprolol as above. 3. Hypercholesterolemia. Continue atorvastatin as above. 4. Cerebrovascular disease/hemiplegia/aphasia. Hold aspirin for now due to gastrointestinal hemorrhage. 5. Elevated troponin. A Cardiology consultation with Dr. Aguilar. Start tube feeding @ 60 cc/hr. eTd Dunn MD Dec 31, 2018 15:58
--- NOTE | 2018-12-31 16:58 | NUR ---
CROWD CONTROLLERANATOMIC PATHOLOGY MANAGER SI: ELEVATED TROP,GI BLEED T. 97.3 HR 84 RR 16 B/P 144/84 RA 98% TROP 0.142 BUN 23 VENOUS DOPPLER BLE=NEGATIVE IS: IVF D5NS@ 100ML/HR LOPRESSOR PO 2D ECHO TELE STATUS
--- NOTE | 2018-12-31 19:00 | NUR ---
NURSE NOTES: Per Dr. Huertas ordered venous duplex prior to placing SCDs. Order entered, noted, and carried out. Will continue to monitor patient.
--- NOTE | 2018-12-31 19:30 | NUR ---
NURSE NOTES: RECEIVED PATIENT FROM REJI FERNANDES.PATIENT AWAKE NON VERBAL BUT ABLE TO SHOOK HEAD HIS HEAD WHEN ASK IF HE HAS A PAIN,ABLE TO FOLLOW SIMPLE COMMANDS.BREATHING UNLABORED.VITALS WITH BP 161/91 HR 79 SR TEMP 98.1 ,97% AT ROOM AIR.HAD A PASTY BLACKISH STOOL,GOOD SPONGE BATH RENDERED,ORAL CARE DONE.SKIN IS INTACT
--- NOTE | 2018-12-31 19:30 | NUR ---
HAND-OFF: Report given to REJI Lazo.
[2018-12-31] MEDS: Metoprolol 25mg tab ORAL SCH (20:42)
[2018-12-31] MEDS: Atorvastatin 20mg tab ORAL SCH (20:42)
--- NOTE | 2018-12-31 23:30 | Consultation ---
DATE OF CONSULTATION: 12/31/2018 CARDIOLOGY CONSULTATION CONSULTING PHYSICIAN: Juan Carlos Aguilar M.D. REFERRING PHYSICIAN: Ted Dunn M.D. REASON FOR CONSULTATION: Management of hypertension and elevated troponin. HISTORY OF PRESENT ILLNESS: The patient is a 68-year-old gentleman with history of hypertension, hyperlipidemia, and history of CVA with hemiplegia and aphasia, who was brought to the emergency room for rectal bleeding. The patient is a resident of [facility]. The patient experienced rectal bleeding on December 29, 2018, was transferred for further evaluation. The patient was found to have elevated troponin. A Cardiology consultation was obtained for further evaluation. At the time of my evaluation, the patient is arousable, but nonverbal. REVIEW OF SYSTEMS: Cannot be obtained. PAST MEDICAL HISTORY: Hypertension, hyperlipidemia, CVA, hemiplegia, and aphasia. MEDICATIONS: Include aspirin, Lipitor, Cardizem, enalapril, metoprolol, vitamin D, and Tylenol. ALLERGIES: He has no known drug allergies. SOCIAL HISTORY: [facility] resident with no history of smoking, alcohol, or substance abuse. PHYSICAL EXAMINATION: VITAL SIGNS: Blood pressure is 132/80, pulse is 65, respirations 18, and temperature 98.1. HEAD AND NECK: showed no JVD. LUNGS: Clear. CARDIOVASCULAR: Shows regular S1 and S2 with no gallop. ABDOMEN: Soft. EXTREMITIES: No pitting edema. LABORATORY AND DIAGNOSTIC DATA: His labs show white count of 9, hemoglobin of 13.9, hematocrit of 42, and platelet count is 265,000. Sodium 140, potassium 4.0, BUN of 22, and creatinine 1.0. Troponin 0.122, 0.142, and 0.139. ASSESSMENT AND PLAN: 1. Troponin elevation. The levels are flat 0.13, 0.14, 0.14. The patient is nonverbal. His 12-lead EKG showed sinus rhythm with left ventricular hypertrophy with nonspecific ST-T wave abnormality. We will treat the patient medically with aspirin and beta-anderson and statin. The patient is not a candidate for invasive procedure and it is not warranted. 2. Hypertension. Start the patient on metoprolol 25 mg b.i.d. that would protect him against acute coronary syndrome. Hold off on aspirin in view of possible GI bleed and start him on Lipitor. 3. Hypertension. Start the patient on Lopressor 25 mg b.i.d. The patient is on p.r.n. clonidine. 4. GI bleed. The patient's hemoglobin is stable at around 14. Further evaluation by Dr. Banegas. Thank you very much for allowing me to participate in the care of this patient. Please do not hesitate to contact me for any questions regarding my evaluation. Juan Carlos Aguilar M.D. DR: JESSICA JOB#: [id number] CC:
[2019-01-01] MEDS: D5NS 1,000 ML IV SCH ×3 (02:55→22:01)
--- NOTE | 2019-01-01 03:28 | NUR ---
NURSE NOTES: NO SIGNIFICANT CHANGE IN CONDITION.PATIENT SLEEPING COMFORTABLY.ECG DONE ,NORMAL SINUS RHYTHM.
--- NOTE | 2019-01-01 03:34 | NUR ---
HAND-OFF: Report given to REJI Grady.
--- NOTE | 2019-01-01 03:40 | NUR ---
NURSE NOTES: Received report from Violet RN, pt. in bed awake, opens eyes to name- able to make needs known, no signs or symptoms of acute cardiac or respiratory distress noted, bed alarm on, side rails up x's3 and safety brakes engaged, call light within easy reach, and bed in lowest position, pt. appears to be sating well on room air- no distress noted, pt. appears to be clean and dry and comfort measures provided, condom cath intact and draining to gravity, pt. has Lt. wrist 20G iv intact and patent running D5NS at 100cc/hr, safety measures continued, will continue with plan of care.
[2019-01-01 04:00] VITALS: BP 146/82
--- NOTE | 2019-01-01 06:40 | Pulmonology Progress Note ---
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 Assessment/Plan OB positive NPO iv fluids check electrolytes watch BP stop Aspirin, probably the cause of GI bleeding. pt is cleared medically to have EGD Subjective ROS Limited/Unobtainable: No Constitutional: Reports: no symptoms HEENT: Repors: no symptoms Allergies: Coded Allergies: No Known Allergies (Unverified , 12/29/18) Objective Last 24 Hour Vital Signs Date Time Temp Pulse Resp B/P (MAP) Pulse Ox O2 Delivery O2 Flow Rate FiO2 01/01/19 04:00 98.2 71 20 146/82 (103) 97 01/01/19 04:00 Room Air 01/01/19 03:41 66 01/01/19 00:02 Room Air 01/01/19 00:00 77 12/31/18 23:55 98.0 69 20 152/91 (111) 96 12/31/18 20:42 79 161/91 12/31/18 20:42 161/91 12/31/18 20:00 90 12/31/18 20:00 Room Air 12/31/18 20:00 98.1 79 20 161/91 (114) 97 12/31/18 16:00 Room Air 12/31/18 16:00 97.9 96 20 150/99 (116) 95 12/31/18 15:16 96 12/31/18 12:00 Room Air 12/31/18 12:00 98.0 96 18 144/84 (104) 100 12/31/18 12:00 89 12/31/18 08:00 Room Air 12/31/18 08:00 93 12/31/18 08:00 97.6 84 18 125/82 (96) 97 Intake and Output 12/31/18 01/01/19 19:00 07:00 Intake Total 600 ml 1105 ml Output Total 300 ml 800 ml Balance 300 ml 305 ml Intake Oral 500 ml 100 ml IV Total 100 ml 1005 ml Output Urine Total 300 ml 800 ml # Voids 3 # Bowel Movements 2 5 General Appearance: WD/WN HEENT: normocephalic, atraumatic Respiratory/Chest: chest wall non-tender, lungs clear Cardiovascular: normal peripheral pulses, normal rate Abdomen: normal bowel sounds, soft, non tender Genitourinary: normal external genitalia Extremities: no cyanosis, no clubbing Neurologic/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 Complete 12/29/18 23:30 Rectum - Final NO CARBAPENEM-RESISTANT ENTEROBACTERI... Complete 12/29/18 23:30 Rectum VRE Culture - Final NO VANCOMYCIN RESISTANT ENTEROCOCCUS ... Complete Laboratory Tests 12/31/18 10:20: Troponin I 0.139H 12/31/18 16:15: Troponin I 0.119H 01/01/19 04:40: Troponin I [Pending] 01/01/19 04:50: White Blood Count [Pending], Red Blood Count [Pending], Hemoglobin [Pending], Hematocrit [Pending], Mean Corpuscular Volume [Pending], Mean Corpuscular Hemoglobin [Pending], Mean Corpuscular Hemoglobin Concent [Pending], Red Cell Distribution Width [Pending], Platelet Count [Pending], Mean Platelet Volume [ Pending], Neutrophils (%) (Auto) [Pending], Lymphocytes (%) (Auto) [Pending], Monocytes (%) (Auto) [Pending], Eosinophils (%) (Auto) [Pending], Basophils (%) (Auto) [Pending], Sodium Level [Pending], Potassium Level [Pending], Chloride Level [Pending], Carbon Dioxide Level [Pending], Blood Urea Nitrogen [Pending], Creatinine [Pending], Estimat Glomerular Filtration Rate [Pending], Glucose Level [Pending], Calcium Level [Pending] Current Medications Medications (Trade) Dose Ordered Sig/Barby Route PRN Reason Start Time Stop Time Status Last Admin Dose Admin Acetaminophen (Tylenol) 650 mg Q4H PRN ORAL fever 12/30/18 01:00 01/29/19 00:59 Atorvastatin Calcium (Lipitor) 20 mg BEDTIME ORAL 12/31/18 21:00 01/30/19 20:59 12/31/18 20:42 Clonidine HCl (Catapres Tab) 0.1 mg Q8H PRN ORAL For High Blood Pressure 12/30/18 19:30 01/29/19 19:29 12/31/18 20:42 Dextrose (Dextrose 50%) 25 ml Q30M PRN IV Hypoglycemia 12/30/18 01:00 01/29/19 00:59 Dextrose (Dextrose 50%) 50 ml Q30M PRN IV Hypoglycemia 12/30/18 01:00 01/29/19 00:59 Dextrose/Sodium Chloride 1,000 ml @ 100 mls/hr Q10H IV 12/30/18 00:54 01/29/19 00:53 01/01/19 02:55 Diphenhydramine HCl (Benadryl) 25 mg Q6H PRN ORAL Itching/Pruritis 12/30/18 01:00 01/29/19 00:59 Metoprolol Tartrate (Lopressor) 25 mg Q12HR ORAL 12/31/18 21:00 01/30/19 20:59 12/31/18 20:42 Morphine Sulfate (Morphine Sulfate) 2 mg Q4H PRN IVP severe Pain (Pain Scale 7-10) 12/30/18 01:00 01/06/19 00:59 Nitroglycerin (Ntg) 0.4 mg Q5M X 3 DOSES PRN SL Prn Chest Pain 12/30/18 01:00 01/29/19 00:59 Ondansetron HCl (Zofran) 4 mg Q6H PRN IVP Nausea & Vomiting 12/30/18 01:00 01/29/19 00:59 Pantoprazole (Protonix) 40 mg EVERY 12 HOURS IV 12/31/18 09:30 01/30/19 09:29 12/31/18 20:41 Polyethylene Glycol (Miralax) 17 gm HSPRN PRN ORAL Constipation 12/30/18 01:00 01/29/19 00:59 Temazepam (Restoril) 15 mg HSPRN PRN ORAL Insomnia 12/30/18 01:00 01/06/19 00:59 Joy Huertas MD Jan 01, 2019 06:40
[2019-01-01 06:43] LABS: BASOPHILS % (AUTO) 1.2 % (0.0-2.0); EOSINOPHILS % (AUTO) 7.3 % (0.0-3.0); HEMATOCRIT 42.4 % (42.0-52.0); HEMOGLOBIN 13.6 G/DL (14.2-18.0); LYMPHOCYTES % (AUTO) 27.5 % (20.0-45.0); MEAN CORPUSCULAR VOLUME 95 FL (80-99); MONOCYTES % (AUTO) 11.4 % (1.0-10.0); NEUTROPHILS % (AUTO) 52.6 % (45.0-75.0); PLATELET COUNT 252 K/UL (150-450); RED BLOOD COUNT 4.44 M/UL (4.70-6.10); RED CELL DISTRIBUTION WIDTH 13.5 % (11.6-14.8); WHITE BLOOD COUNT 6.3 K/UL (4.8-10.8)
--- NOTE | 2019-01-01 06:56 | NUR ---
HAND-OFF: Report given to Amy MENDOZA, pt. remains stable and no signs of distress noted.
--- NOTE | 2019-01-01 06:59 | NUR ---
NURSE NOTES: received patient report from sofya plasencia. patient is on bed asleep. not in acute ditress. no arrythmias reported during the night. bed is low and locked for safety, will follow plan of care.
[2019-01-01 07:53] LABS: ANION GAP 8 mmol/L (5-15); BLOOD UREA NITROGEN 15 mg/dL (7-18); CALCIUM 8.1 MG/DL (8.5-10.1); CARBON DIOXIDE 23 MMOL/L (21-32); CHLORIDE 112 MMOL/L (98-107); CREATININE 0.7 MG/DL (0.55-1.30); POTASSIUM 4.9 MMOL/L (3.5-5.1); SODIUM 143 MMOL/L (136-145)
[2019-01-01 08:00] VITALS: BP 139/85
[2019-01-01] MEDS: Metoprolol 25mg tab ORAL SCH (08:17)
[2019-01-01] MEDS: Pantoprazole Inj IV SCH ×2 (08:18→20:05)
[2019-01-01] MEDS ORDERED: D5NS 1000ml IV ONE (10:52)
[2019-01-01 12:00] VITALS: BP 170/105
--- NOTE | 2019-01-01 12:17 | General Progress Note ---
Assessment/Plan Assessment/Plan: Assessment (1) Aphasia ICD Codes: R47.01 - Aphasia SNOMED: 53240342 (2) 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 stroke ICD Codes: I69.359 - Hemiplegia and hemiparesis following cerebral infarction affecting unspecified side SNOMED: 588366270 (3) History of CVA (cerebrovascular accident) ICD Codes: Z86.73 - Personal history of transient ischemic attack (TIA), and cerebral infarction without residual deficits SNOMED: 626413388 (4) Essential hypertension ICD Codes: I10 - Essential (primary) hypertension SNOMED: 27132601 (5) GI bleed / Heme (+) stool ICD Codes: K92.2 - Gastrointestinal hemorrhage, unspecified SNOMED: 40579898 Assessment/Plan: ppi BID swallow eval cardiology eval given elevated trop and plan GI procedures when cleared fu H&H Subjective Allergies: Coded Allergies: No Known Allergies (Unverified , 12/29/18) Subjective Above noted minimally interactive Objective Last 24 Hour Vital Signs Date Time Temp Pulse Resp B/P (MAP) Pulse Ox O2 Delivery O2 Flow Rate FiO2 01/01/19 08:17 64 139/85 01/01/19 08:00 98.6 64 18 139/85 (103) 96 01/01/19 08:00 Room Air 01/01/19 07:50 66 01/01/19 04:00 98.2 71 20 146/82 (103) 97 01/01/19 04:00 Room Air 01/01/19 03:41 66 01/01/19 00:02 Room Air 01/01/19 00:00 77 12/31/18 23:55 98.0 69 20 152/91 (111) 96 12/31/18 20:42 79 161/91 12/31/18 20:42 161/91 12/31/18 20:00 90 12/31/18 20:00 Room Air 12/31/18 20:00 98.1 79 20 161/91 (114) 97 12/31/18 16:00 Room Air 12/31/18 16:00 97.9 96 20 150/99 (116) 95 12/31/18 15:16 96 Intake and Output 12/31/18 01/01/19 18:59 06:59 Intake Total 500 ml 1205 ml Output Total 300 ml 800 ml Balance 200 ml 405 ml Intake Oral 500 ml 100 ml IV Total 1105 ml Output Urine Total 300 ml 800 ml # Voids 3 # Bowel Movements 2 5 Laboratory Tests 12/31/18 16:15: Troponin I 0.119H 01/01/19 04:40: Troponin I 0.112H 01/01/19 04:50: White Blood Count 6.3, Red Blood Count 4.44L, Hemoglobin 13.6L, Hematocrit 42.4 , Mean Corpuscular Volume 95, Mean Corpuscular Hemoglobin 30.7, Mean Corpuscular Hemoglobin Concent 32.2, Red Cell Distribution Width 13.5, Platelet Count 252, Mean Platelet Volume 5.7L, Neutrophils (%) (Auto) 52.6, Lymphocytes ( %) (Auto) 27.5, Monocytes (%) (Auto) 11.4H, Eosinophils (%) (Auto) 7.3H, Basophils (%) (Auto) 1.2, Sodium Level 143, Potassium Level 4.9, Chloride Level 112H, Carbon Dioxide Level 23, Anion Gap 8, Blood Urea Nitrogen 15, Creatinine 0.7, Estimat Glomerular Filtration Rate > 60, Glucose Level 78, Calcium Level 8.1L Height (Feet): 5 Height (Inches): 7.00 Weight (Pounds): 154 Objective NAD calm, minimally interactive NCAT supple CTA RRR abd soft ND no edema Thee Gaston MD Jan 01, 2019 12:17
[2019-01-01 13:50] VITALS: BP 170/105
[2019-01-01 16:00] VITALS: BP 128/95
--- NOTE | 2019-01-01 16:12 | Cardiac Electrophysiology PN ---
Assessment/Plan Assessment/Plan 1. Troponin elevation. The levels are flat 0.13, 0.14, 0.14. The patient denies any CP or SOB. His 12-lead EKG showed sinus rhythm with left ventricular hypertrophy with nonspecific ST-T wave abnormality. We will treat the patient medically with beta-anderson and statin. Off aspirin for GI bleed Schedule for Nuclear stress test Thursday 2. Hypertension. Increase metoprolol to 50 mg b.i.d. Also is on p.r.n. clonidine. 3. GI bleed. The patient's hemoglobin is stable at around 14. EGD pending per Dr Gaston Subjective Subjective No CP or SOB. Ate 100%. BP was as high as 177 and got Clonidine prn Objective Last 24 Hour Vital Signs Date Time Temp Pulse Resp B/P (MAP) Pulse Ox O2 Delivery O2 Flow Rate FiO2 01/01/19 16:00 99.1 87 19 128/95 (106) 97 01/01/19 14:01 170/105 01/01/19 12:00 97.0 90 18 170/105 (126) 96 01/01/19 11:44 67 01/01/19 08:17 64 139/85 01/01/19 08:00 98.6 64 18 139/85 (103) 96 01/01/19 08:00 Room Air 01/01/19 07:50 66 01/01/19 04:00 98.2 71 20 146/82 (103) 97 01/01/19 04:00 Room Air 01/01/19 03:41 66 01/01/19 00:02 Room Air 01/01/19 00:00 77 12/31/18 23:55 98.0 69 20 152/91 (111) 96 12/31/18 20:42 79 161/91 12/31/18 20:42 161/91 12/31/18 20:00 90 12/31/18 20:00 Room Air 12/31/18 20:00 98.1 79 20 161/91 (114) 97 Intake and Output 12/31/18 01/01/19 18:59 06:59 Intake Total 500 ml 1205 ml Output Total 300 ml 800 ml Balance 200 ml 405 ml Intake Oral 500 ml 100 ml IV Total 1105 ml Output Urine Total 300 ml 800 ml # Voids 3 # Bowel Movements 2 5 Laboratory Tests Test 12/31/18 16:15 01/01/19 04:40 01/01/19 04:50 Troponin I 0.119 ng/mL (0.000-0.056) 0.112 ng/mL (0.000-0.056) White Blood Count 6.3 K/UL (4.8-10.8) Red Blood Count 4.44 M/UL (4.70-6.10) L Hemoglobin 13.6 G/DL (14.2-18.0) L Hematocrit 42.4 % (42.0-52.0) Mean Corpuscular Volume 95 FL (80-99) Mean Corpuscular Hemoglobin 30.7 PG (27.0-31.0) Mean Corpuscular Hemoglobin Concent 32.2 G/DL (32.0-36.0) Red Cell Distribution Width 13.5 % (11.6-14.8) Platelet Count 252 K/UL (150-450) Mean Platelet Volume 5.7 FL (6.5-10.1) L Neutrophils (%) (Auto) 52.6 % (45.0-75.0) Lymphocytes (%) (Auto) 27.5 % (20.0-45.0) Monocytes (%) (Auto) 11.4 % (1.0-10.0) H Eosinophils (%) (Auto) 7.3 % (0.0-3.0) H Basophils (%) (Auto) 1.2 % (0.0-2.0) Sodium Level 143 MMOL/L (136-145) Potassium Level 4.9 MMOL/L (3.5-5.1) Chloride Level 112 MMOL/L (98-107) H Carbon Dioxide Level 23 MMOL/L (21-32) Anion Gap 8 mmol/L (5-15) Blood Urea Nitrogen 15 mg/dL (7-18) Creatinine 0.7 MG/DL (0.55-1.30) Estimat Glomerular Filtration Rate > 60 mL/min (>60) Glucose Level 78 MG/DL (74-106) Calcium Level 8.1 MG/DL (8.5-10.1) L Microbiology Date/Time Source Procedure Growth Status 12/29/18 23:30 Nose MRSA Culture - Final NO METHICILLIN RESISTANT STAPH AUREUS... Complete 12/29/18 23:30 Rectum - Final NO CARBAPENEM-RESISTANT ENTEROBACTERI... Complete 12/29/18 23:30 Rectum VRE Culture - Final NO VANCOMYCIN RESISTANT ENTEROCOCCUS ... Complete Objective HEAD AND NECK: showed no JVD. LUNGS: Clear. CARDIOVASCULAR: Shows regular S1 and S2 with no gallop. ABDOMEN: Soft. EXTREMITIES: No pitting edema. Juan Carlos Aguilar MD Jan 01, 2019 16:12
[2019-01-01] MEDS ORDERED: Lexiscan 0.4mg/5ml syringe IV PRN (16:14)
--- NOTE | 2019-01-01 17:25 | Internal Med Progress Note ---
Subjective Date of Service: Jan 01, 2019 Physician Name Nicholas Chandler Attending Physician Ted Dunn MD Current Medications Medications (Trade) Dose Ordered Sig/Barby Route PRN Reason Start Time Stop Time Status Last Admin Dose Admin Acetaminophen (Tylenol) 650 mg Q4H PRN ORAL fever 12/30/18 01:00 01/29/19 00:59 Atorvastatin Calcium (Lipitor) 20 mg BEDTIME ORAL 12/31/18 21:00 01/30/19 20:59 12/31/18 20:42 Clonidine HCl (Catapres Tab) 0.1 mg Q8H PRN ORAL For High Blood Pressure 12/30/18 19:30 01/29/19 19:29 01/01/19 14:01 Dextrose (Dextrose 50%) 25 ml Q30M PRN IV Hypoglycemia 12/30/18 01:00 01/29/19 00:59 Dextrose (Dextrose 50%) 50 ml Q30M PRN IV Hypoglycemia 12/30/18 01:00 01/29/19 00:59 Dextrose/Sodium Chloride 1,000 ml @ 100 mls/hr Q10H IV 12/30/18 00:54 01/29/19 00:53 01/01/19 11:58 Diphenhydramine HCl (Benadryl) 25 mg Q6H PRN ORAL Itching/Pruritis 12/30/18 01:00 01/29/19 00:59 Metoprolol Tartrate (Lopressor) 50 mg Q12HR ORAL 01/01/19 21:00 01/30/19 20:59 Morphine Sulfate (Morphine Sulfate) 2 mg Q4H PRN IVP severe Pain (Pain Scale 7-10) 12/30/18 01:00 01/06/19 00:59 Nitroglycerin (Ntg) 0.4 mg Q5M X 3 DOSES PRN SL Prn Chest Pain 12/30/18 01:00 01/29/19 00:59 Ondansetron HCl (Zofran) 4 mg Q6H PRN IVP Nausea & Vomiting 12/30/18 01:00 01/29/19 00:59 Pantoprazole (Protonix) 40 mg EVERY 12 HOURS IV 12/31/18 09:30 01/30/19 09:29 01/01/19 08:18 Polyethylene Glycol (Miralax) 17 gm HSPRN PRN ORAL Constipation 12/30/18 01:00 01/29/19 00:59 Regadenoson (Lexiscan) 0.4 mg ONCE PRN IV cardiology 01/01/19 16:14 01/03/19 23:59 Temazepam (Restoril) 15 mg HSPRN PRN ORAL Insomnia 12/30/18 01:00 01/06/19 00:59 Allergies: Coded Allergies: No Known Allergies (Unverified , 12/29/18) ROS Limited/Unobtainable: Yes Subjective 68 YO M admitted with Gastrointestinal hemorrhage. Now elevated troponin. Cover for Int Med-DR Dunn Objective Last Vital Signs Date Time Temp Pulse Resp B/P (MAP) Pulse Ox O2 Delivery O2 Flow Rate FiO2 01/01/19 16:00 99.1 87 19 128/95 (106) 97 01/01/19 08:00 Room Air 12/29/18 23:23 97 Laboratory Tests Test 01/01/19 04:40 01/01/19 04:50 Troponin I 0.112 ng/mL (0.000-0.056) White Blood Count 6.3 K/UL (4.8-10.8) Red Blood Count 4.44 M/UL (4.70-6.10) L Hemoglobin 13.6 G/DL (14.2-18.0) L Hematocrit 42.4 % (42.0-52.0) Mean Corpuscular Volume 95 FL (80-99) Mean Corpuscular Hemoglobin 30.7 PG (27.0-31.0) Mean Corpuscular Hemoglobin Concent 32.2 G/DL (32.0-36.0) Red Cell Distribution Width 13.5 % (11.6-14.8) Platelet Count 252 K/UL (150-450) Mean Platelet Volume 5.7 FL (6.5-10.1) L Neutrophils (%) (Auto) 52.6 % (45.0-75.0) Lymphocytes (%) (Auto) 27.5 % (20.0-45.0) Monocytes (%) (Auto) 11.4 % (1.0-10.0) H Eosinophils (%) (Auto) 7.3 % (0.0-3.0) H Basophils (%) (Auto) 1.2 % (0.0-2.0) Sodium Level 143 MMOL/L (136-145) Potassium Level 4.9 MMOL/L (3.5-5.1) Chloride Level 112 MMOL/L (98-107) H Carbon Dioxide Level 23 MMOL/L (21-32) Anion Gap 8 mmol/L (5-15) Blood Urea Nitrogen 15 mg/dL (7-18) Creatinine 0.7 MG/DL (0.55-1.30) Estimat Glomerular Filtration Rate > 60 mL/min (>60) Glucose Level 78 MG/DL (74-106) Calcium Level 8.1 MG/DL (8.5-10.1) L Microbiology Date/Time Source Procedure Growth Status 12/29/18 23:30 Nose MRSA Culture - Final NO METHICILLIN RESISTANT STAPH AUREUS... Complete 12/29/18 23:30 Rectum - Final NO CARBAPENEM-RESISTANT ENTEROBACTERI... Complete 12/29/18 23:30 Rectum VRE Culture - Final NO VANCOMYCIN RESISTANT ENTEROCOCCUS ... Complete Intake and Output 12/31/18 01/01/19 18:59 06:59 Intake Total 500 ml 1205 ml Output Total 300 ml 800 ml Balance 200 ml 405 ml Intake Oral 500 ml 100 ml IV Total 1105 ml Output Urine Total 300 ml 800 ml # Voids 3 # Bowel Movements 2 5 Objective PHYSICAL EXAMINATION: GENERALLY: The patient is a well-developed and well-nourished female, in no apparent distress. HEENT: Eyes, pupils are equal and responsive to light and accommodation. Extraocular movements are intact. NECK: Supple without lymphadenopathy. CHEST: Lungs are clear to auscultation bilaterally without wheezes or rales. CARDIOVASCULAR: Regular rhythm and rate. S1 and S2 are normal without murmurs, rubs, or gallops. ABDOMEN: Soft, nontender, and nondistended. Positive bowel sounds. No evidence of hepatosplenomegaly. Currently, no rebound or guarding noted. EXTREMITIES: Negative for clubbing, cyanosis, or edema. RECTAL/GENITAL: Not performed. NEUROLOGIC: Cranial nerves II through XII are grossly intact. Assessment/Plan Assessment/Plan ASSESSMENT: This is a 68-year-old female. 1. Gastrointestinal hemorrhage. 2. Hypertension. 3. Hypercholesterolemia. 4. Cerebrovascular disease. 5. Hemiplegia. 6. Aphasia. 7. Elevated troponin. TREATMENT: 1. Gastrointestinal hemorrhage. A Gastroenterology consultation has been obtained with Dr. Bib Banegas. We will follow recommendations of Gastroenterology. 2. Hypertension. Continue enalapril and diltiazem as above. Continue metoprolol as above. 3. Hypercholesterolemia. Continue atorvastatin as above. 4. Cerebrovascular disease/hemiplegia/aphasia. Hold aspirin for now due to gastrointestinal hemorrhage. 5. Elevated troponin. A Cardiology consultation=Dr Aguilar. Await nuclear stress test on Thursday01/03/19 Nicholas Chandler MD Jan 01, 2019 17:25
--- NOTE | 2019-01-01 19:05 | NUR ---
NURSE NOTES: Report received from REJI Reyes. Observed pt lying in the bed. SR with library monitor. No distress noted at this time. A/O x1. Abd soft and round. Condom cath intact and draining well. IV on L W 20G, running D5 NS at 100cc/hr. Bed in the lowest position. Side rails up x3. Will continue to monitor.
--- NOTE | 2019-01-01 19:24 | NUR ---
HAND-OFF: Report given to rand plasencia.
[2019-01-01 20:00] VITALS: BP 169/93
[2019-01-01] MEDS: Atorvastatin 20mg tab ORAL SCH (20:06)
[2019-01-01] MEDS ORDERED: Metoprolol Tartrate 50mg tab ORAL SCH (21:00)
--- NOTE | 2019-01-01 22:22 | NUR ---
NURSE NOTES: Observed pt lying in the bed. No signs of acute distress noted at this time. SR with termite renewal inspector. Bp of 160/92 noted. Pt in high barlow's position. IVF on, D5 NS 100cc/hr at L W, asymptomatic. Condom cath draining well noted. Will continue to monitor.
[2019-01-02] VITALS (7 sets, daily range): BP systolic 131–180; BP diastolic 61–110
--- NOTE | 2019-01-02 00:15 | NUR ---
NURSE NOTES: Noted BP of 177/86, HR 62 around 2330. PRN med given. Now BP 150/98 noted. Pt appears calm and comfortable. Will continue to monitor.
--- NOTE | 2019-01-02 04:00 | NUR ---
NURSE NOTES: No distress noted at this time. Noted BP of 150/98. SR. No signs of pain noted. Bed bath given. Skin intact. Reposition done. will continue to monitor.
--- NOTE | 2019-01-02 06:14 | NUR ---
NURSE NOTES: Left a message to regarding 2 episodes of Vtach around 0500. Pt was asymptomaitc, responsive, BP 155/97, P 58. 12 EKG done and indicates SR. Will continue to monitor.
[2019-01-02] MEDS ORDERED: Nitroglycerin Subl 0.4mg tab SL PRN (07:15)
[2019-01-02] MEDS ORDERED: Lexiscan 0.4mg/5ml syringe IV PRN (07:15)
--- NOTE | 2019-01-02 07:30 | NUR ---
TRANSFER TO FLOOR: Patient transferred to [facility], room 221-2 via hosiptal bed. Report given to REJI Simmons. Belongings and medications given to RN. No acute distress noted at this time.
--- NOTE | 2019-01-02 07:30 | NUR ---
NURSE NOTES: Received pt from REJI Leslie in stable condition with no cardiopulmonary distress noted. Pt is AAOx1, responsive to name on RA. No skin alterations noted at this time. Condom cath noted draining yellow urine. Pt has a LW 20g IV. SCDs noted on bilat lower extremities. Bed is in lowest position w/alarm on, side rails up x 2, call light within reach. Will continue to monitor pt.
[2019-01-02] MEDS ORDERED: Morphine Sulfate 2mg/ml Inj(IV/IM USE ONLY) IVP PRN (08:00)
[2019-01-02 08:17] LABS: BASOPHILS % (AUTO) 0.8 % (0.0-2.0); EOSINOPHILS % (AUTO) 10.8 % (0.0-3.0); HEMATOCRIT 37.1 % (42.0-52.0); LYMPHOCYTES % (AUTO) 28.6 % (20.0-45.0); MEAN CORPUSCULAR VOLUME 95 FL (80-99); MONOCYTES % (AUTO) 12.9 % (1.0-10.0); NEUTROPHILS % (AUTO) 46.9 % (45.0-75.0); PLATELET COUNT 207 K/UL (150-450); RED BLOOD COUNT 3.91 M/UL (4.70-6.10); RED CELL DISTRIBUTION WIDTH 13.1 % (11.6-14.8); WHITE BLOOD COUNT 5.3 K/UL (4.8-10.8)
[2019-01-02] MEDS: Metoprolol Tartrate 50mg tab ORAL SCH ×2 (08:34→22:00)
[2019-01-02 08:35] LABS: ANION GAP 5 mmol/L (5-15); BLOOD UREA NITROGEN 9 mg/dL (7-18); CALCIUM 8.2 MG/DL (8.5-10.1); CARBON DIOXIDE 26 MMOL/L (21-32); CHLORIDE 113 MMOL/L (98-107); CREATININE 0.9 MG/DL (0.55-1.30); POTASSIUM 3.5 MMOL/L (3.5-5.1); SODIUM 144 MMOL/L (136-145)
[2019-01-02] MEDS: Pantoprazole Inj IV SCH ×2 (08:35→22:01)
[2019-01-02] MEDS: D5NS 1,000 ML IV SCH ×2 (08:36→17:03)
--- NOTE | 2019-01-02 12:22 | General Progress Note ---
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 ICD Codes: I69.359 - Hemiplegia and hemiparesis following cerebral infarction affecting unspecified side SNOMED: 478587185 (3) History of CVA (cerebrovascular accident) ICD Codes: Z86.73 - Personal history of transient ischemic attack (TIA), and cerebral infarction without residual deficits SNOMED: 769147495 (4) Essential hypertension ICD Codes: I10 - Essential (primary) hypertension SNOMED: 62010069 (5) GI bleed / Heme (+) stool ICD Codes: K92.2 - Gastrointestinal hemorrhage, unspecified SNOMED: 58023013 Assessment/Plan: ppi BID swallow eval cardiology eval given elevated trop and plan GI procedures when cleared fu H&H Subjective Allergies: Coded Allergies: No Known Allergies (Unverified , 12/29/18) Subjective Above noted minimally interactive awake stress test planned for Thursday Objective Last 24 Hour Vital Signs Date Time Temp Pulse Resp B/P (MAP) Pulse Ox O2 Delivery O2 Flow Rate FiO2 01/02/19 08:34 66 148/61 01/02/19 08:00 58 01/02/19 08:00 98.6 66 14 148/61 (90) 98 01/02/19 04:00 97.9 69 18 151/99 (116) 100 01/02/19 03:35 70 01/02/19 00:27 150/98 (115) 01/02/19 00:00 97.5 62 18 177/86 (116) 100 01/01/19 23:44 60 01/01/19 23:17 177/86 01/01/19 21:00 Room Air 01/01/19 20:11 77 169/93 01/01/19 20:09 74 01/01/19 20:00 97.7 76 18 169/93 (118) 96 01/01/19 16:00 99.1 87 19 128/95 (106) 97 01/01/19 16:00 78 01/01/19 14:01 170/105 Intake and Output 01/01/19 01/02/19 19:00 07:00 Intake Total 1403 ml 1100 ml Output Total 750 ml 380 ml Balance 653 ml 720 ml Intake Oral 300 ml 0 ml IV Total 1103 ml 1100 ml Output Urine Total 750 ml 380 ml # Bowel Movements 1 Laboratory Tests 01/02/19 07:40: White Blood Count 5.3, Red Blood Count 3.91L, Hemoglobin 12.0L, Hematocrit 37.1L , Mean Corpuscular Volume 95, Mean Corpuscular Hemoglobin 30.6, Mean Corpuscular Hemoglobin Concent 32.2, Red Cell Distribution Width 13.1, Platelet Count 207, Mean Platelet Volume 5.1L, Neutrophils (%) (Auto) 46.9, Lymphocytes ( %) (Auto) 28.6, Monocytes (%) (Auto) 12.9H, Eosinophils (%) (Auto) 10.8H, Basophils (%) (Auto) 0.8, Sodium Level 144, Potassium Level 3.5, Chloride Level 113H, Carbon Dioxide Level 26, Anion Gap 5, Blood Urea Nitrogen 9, Creatinine 0.9, Estimat Glomerular Filtration Rate > 60, Glucose Level 82, Calcium Level 8.2L Height (Feet): 5 Height (Inches): 7.00 Weight (Pounds): 154 Objective NAD calm, minimally interactive NCAT supple CTA RRR abd soft ND no edema Thee Gaston MD Jan 02, 2019 12:22
--- NOTE | 2019-01-02 14:53 | Cardiology Report ---
APPROVED REPORT EKG Measurement Heart [id number] Normal sinus rhythm Left axis deviation Inferior infarct, age undetermined Abnormal ECG
--- NOTE | 2019-01-02 15:18 | Internal Med Progress Note ---
Subjective Date of Service: Jan 02, 2019 Physician Name Nihcolas Chandler Attending Physician Ted Dunn MD Current Medications Medications (Trade) Dose Ordered Sig/Barby Route PRN Reason Start Time Stop Time Status Last Admin Dose Admin Acetaminophen (Tylenol) 650 mg Q4H PRN ORAL T>100.5 01/02/19 08:00 01/29/19 07:59 Atorvastatin Calcium (Lipitor) 20 mg BEDTIME ORAL 01/02/19 21:00 01/30/19 20:59 Clonidine HCl (Catapres Tab) 0.1 mg Q8H PRN ORAL SBP>160mmHg 01/02/19 07:30 01/29/19 07:29 Dextrose (Dextrose 50%) 25 ml Q30M PRN IV Hypoglycemia 01/02/19 07:30 01/29/19 00:59 Dextrose (Dextrose 50%) 50 ml Q30M PRN IV Hypoglycemia 01/02/19 07:30 01/29/19 00:59 Dextrose/Sodium Chloride 1,000 ml @ 100 mls/hr Q10H IV 01/02/19 08:00 01/29/19 07:59 01/02/19 08:36 Diphenhydramine HCl (Benadryl) 25 mg Q6H PRN ORAL Itching/Pruritis 01/02/19 07:30 01/29/19 07:29 Metoprolol Tartrate (Lopressor) 50 mg Q12HR ORAL 01/02/19 09:00 01/30/19 20:59 01/02/19 08:34 Morphine Sulfate (Morphine Sulfate) 2 mg Q4H PRN IVP Severe Pain (Pain Scale 7-10) 01/02/19 08:00 01/06/19 07:59 Nitroglycerin (Ntg) 0.4 mg Q5M X 3 DOSES PRN SL Prn Chest Pain 01/02/19 07:15 01/29/19 00:59 Ondansetron HCl (Zofran) 4 mg Q6H PRN IVP Nausea & Vomiting 01/02/19 08:00 01/29/19 07:59 Pantoprazole (Protonix) 40 mg EVERY 12 HOURS IV 01/02/19 09:00 01/30/19 09:29 01/02/19 08:35 Polyethylene Glycol (Miralax) 17 gm HSPRN PRN ORAL Constipation 01/02/19 21:00 02/01/19 20:59 Regadenoson (Lexiscan) 0.4 mg ONCE PRN IV Stress test 01/02/19 07:15 01/04/19 23:59 Temazepam (Restoril) 15 mg HSPRN PRN ORAL Insomnia 01/02/19 21:00 01/09/19 20:59 Allergies: Coded Allergies: No Known Allergies (Unverified , 12/29/18) ROS Limited/Unobtainable: No Constitutional: Reports: no symptoms HEENT: Reports: no symptoms Cardiovascular: Reports: no symptoms Respiratory: Reports: no symptoms Gastrointestinal/Abdominal: Reports: no symptoms Genitourinary: Reports: no symptoms Neurologic/Psychiatric: Reports: no symptoms Subjective 68 YO M admitted with Gastrointestinal hemorrhage. Now elevated troponin. Cover for Int Yobani-DR Dunn Objective Last Vital Signs Date Time Temp Pulse Resp B/P (MAP) Pulse Ox O2 Delivery O2 Flow Rate FiO2 01/02/19 12:00 97.0 70 18 131/67 (88) 97 01/01/19 21:00 Room Air 12/29/18 23:23 97 Laboratory Tests Test 01/02/19 07:40 White Blood Count 5.3 K/UL (4.8-10.8) Red Blood Count 3.91 M/UL (4.70-6.10) L Hemoglobin 12.0 G/DL (14.2-18.0) L Hematocrit 37.1 % (42.0-52.0) L Mean Corpuscular Volume 95 FL (80-99) Mean Corpuscular Hemoglobin 30.6 PG (27.0-31.0) Mean Corpuscular Hemoglobin Concent 32.2 G/DL (32.0-36.0) Red Cell Distribution Width 13.1 % (11.6-14.8) Platelet Count 207 K/UL (150-450) Mean Platelet Volume 5.1 FL (6.5-10.1) L Neutrophils (%) (Auto) 46.9 % (45.0-75.0) Lymphocytes (%) (Auto) 28.6 % (20.0-45.0) Monocytes (%) (Auto) 12.9 % (1.0-10.0) H Eosinophils (%) (Auto) 10.8 % (0.0-3.0) H Basophils (%) (Auto) 0.8 % (0.0-2.0) Sodium Level 144 MMOL/L (136-145) Potassium Level 3.5 MMOL/L (3.5-5.1) Chloride Level 113 MMOL/L (98-107) H Carbon Dioxide Level 26 MMOL/L (21-32) Anion Gap 5 mmol/L (5-15) Blood Urea Nitrogen 9 mg/dL (7-18) Creatinine 0.9 MG/DL (0.55-1.30) Estimat Glomerular Filtration Rate > 60 mL/min (>60) Glucose Level 82 MG/DL (74-106) Calcium Level 8.2 MG/DL (8.5-10.1) L Intake and Output 01/01/19 01/02/19 18:59 06:59 Intake Total 1400 ml 1203 ml Output Total 750 ml 380 ml Balance 650 ml 823 ml Intake Oral 300 ml IV Total 1100 ml 1203 ml Output Urine Total 750 ml 380 ml # Bowel Movements 1 Objective PHYSICAL EXAMINATION: GENERALLY: The patient is a well-developed and well-nourished female, in no apparent distress. HEENT: Eyes, pupils are equal and responsive to light and accommodation. Extraocular movements are intact. NECK: Supple without lymphadenopathy. CHEST: Lungs are clear to auscultation bilaterally without wheezes or rales. CARDIOVASCULAR: Regular rhythm and rate. S1 and S2 are normal without murmurs, rubs, or gallops. ABDOMEN: Soft, nontender, and nondistended. Positive bowel sounds. No evidence of hepatosplenomegaly. Currently, no rebound or guarding noted. EXTREMITIES: Negative for clubbing, cyanosis, or edema. RECTAL/GENITAL: Not performed. NEUROLOGIC: Cranial nerves II through XII are grossly intact. Assessment/Plan Assessment/Plan ASSESSMENT: This is a 68-year-old female. 1. Gastrointestinal hemorrhage. 2. Hypertension. 3. Hypercholesterolemia. 4. Cerebrovascular disease. 5. Hemiplegia. 6. Aphasia. 7. Elevated troponin. TREATMENT: 1. Gastrointestinal hemorrhage. A Gastroenterology consultation has been obtained with Dr. Bib Banegas. Possible endoscopy when cleared by Cardiology 2. Hypertension. Continue enalapril and diltiazem as above. Continue metoprolol as above. 3. Hypercholesterolemia. Continue atorvastatin as above. 4. Cerebrovascular disease/hemiplegia/aphasia. Hold aspirin for now due to gastrointestinal hemorrhage. 5. Elevated troponin. A Cardiology consultation=Dr Aguilar. Await nuclear stress test on Thursday01/03/19 Nicholas Chandler MD Jan 02, 2019 15:18
[2019-01-02] MEDS ORDERED: D5NS 1000ml IV ONE ×2 (15:19→15:21)
--- NOTE | 2019-01-02 19:17 | NUR ---
HAND-OFF: Report given to REJI Leslie. Pt in stable condition.
--- NOTE | 2019-01-02 19:21 | NUR ---
NURSE NOTES: Report received from REJI Estes. Observed pt lying in the bed. A/O x1. SR with manager monitoring. On room air with no signs of sob. Abd soft, round. IV on L W 20G, running D5 NS at 100cc/hr. Bed in the lowest position. Side rails up x3. Call light within reach. Will continue to monitor.
--- NOTE | 2019-01-02 19:29 | Pulmonology Progress Note ---
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 Assessment/Plan stress test today iv fluids check electrolytes watch BP stop Aspirin, probably the cause of GI bleeding. pt is cleared medically to have EGD Subjective ROS Limited/Unobtainable: Yes Constitutional: Reports: no symptoms HEENT: Repors: no symptoms Allergies: Coded Allergies: No Known Allergies (Unverified , 12/29/18) Objective Last 24 Hour Vital Signs Date Time Temp Pulse Resp B/P (MAP) Pulse Ox O2 Delivery O2 Flow Rate FiO2 01/02/19 16:00 75 01/02/19 16:00 98.6 82 20 133/80 (97) 98 01/02/19 12:00 97.0 70 18 131/67 (88) 97 01/02/19 12:00 67 01/02/19 08:34 66 148/61 01/02/19 08:00 58 01/02/19 08:00 Room Air 01/02/19 08:00 98.6 66 14 148/61 (90) 98 01/02/19 04:00 97.9 69 18 151/99 (116) 100 01/02/19 03:35 70 01/02/19 00:27 150/98 (115) 01/02/19 00:00 97.5 62 18 177/86 (116) 100 01/01/19 23:44 60 01/01/19 23:17 177/86 01/01/19 21:00 Room Air 01/01/19 20:11 77 169/93 01/01/19 20:09 74 01/01/19 20:00 97.7 76 18 169/93 (118) 96 Intake and Output 01/01/19 01/02/19 18:59 06:59 Intake Total 1400 ml 1203 ml Output Total 750 ml 380 ml Balance 650 ml 823 ml Intake Oral 300 ml IV Total 1100 ml 1203 ml Output Urine Total 750 ml 380 ml # Bowel Movements 1 General Appearance: WD/WN HEENT: normocephalic Respiratory/Chest: chest wall non-tender, lungs clear, normal breath sounds Cardiovascular: normal rate, regular rhythm Abdomen: normal bowel sounds, no organomegaly Neurologic/Psychiatric: no motor/sensory deficits Lymphatic: no neck adenopathy Laboratory Tests 01/02/19 07:40: White Blood Count 5.3, Red Blood Count 3.91L, Hemoglobin 12.0L, Hematocrit 37.1L , Mean Corpuscular Volume 95, Mean Corpuscular Hemoglobin 30.6, Mean Corpuscular Hemoglobin Concent 32.2, Red Cell Distribution Width 13.1, Platelet Count 207, Mean Platelet Volume 5.1L, Neutrophils (%) (Auto) 46.9, Lymphocytes ( %) (Auto) 28.6, Monocytes (%) (Auto) 12.9H, Eosinophils (%) (Auto) 10.8H, Basophils (%) (Auto) 0.8, Sodium Level 144, Potassium Level 3.5, Chloride Level 113H, Carbon Dioxide Level 26, Anion Gap 5, Blood Urea Nitrogen 9, Creatinine 0.9, Estimat Glomerular Filtration Rate > 60, Glucose Level 82, Calcium Level 8.2L Current Medications Medications (Trade) Dose Ordered Sig/Barby Route PRN Reason Start Time Stop Time Status Last Admin Dose Admin Acetaminophen (Tylenol) 650 mg Q4H PRN ORAL T>100.5 01/02/19 08:00 01/29/19 07:59 Atorvastatin Calcium (Lipitor) 20 mg BEDTIME ORAL 01/02/19 21:00 01/30/19 20:59 Clonidine HCl (Catapres Tab) 0.1 mg Q8H PRN ORAL SBP>160mmHg 01/02/19 07:30 01/29/19 07:29 Dextrose (Dextrose 50%) 25 ml Q30M PRN IV Hypoglycemia 01/02/19 07:30 01/29/19 00:59 Dextrose (Dextrose 50%) 50 ml Q30M PRN IV Hypoglycemia 01/02/19 07:30 01/29/19 00:59 Dextrose/Sodium Chloride 1,000 ml @ 100 mls/hr Q10H IV 01/02/19 08:00 01/29/19 07:59 01/02/19 17:03 Diphenhydramine HCl (Benadryl) 25 mg Q6H PRN ORAL Itching/Pruritis 01/02/19 07:30 01/29/19 07:29 Metoprolol Tartrate (Lopressor) 50 mg Q12HR ORAL 01/02/19 09:00 01/30/19 20:59 01/02/19 08:34 Morphine Sulfate (Morphine Sulfate) 2 mg Q4H PRN IVP Severe Pain (Pain Scale 7-10) 01/02/19 08:00 01/06/19 07:59 Nitroglycerin (Ntg) 0.4 mg Q5M X 3 DOSES PRN SL Prn Chest Pain 01/02/19 07:15 01/29/19 00:59 Ondansetron HCl (Zofran) 4 mg Q6H PRN IVP Nausea & Vomiting 01/02/19 08:00 01/29/19 07:59 Pantoprazole (Protonix) 40 mg EVERY 12 HOURS IV 01/02/19 09:00 01/30/19 09:29 01/02/19 08:35 Polyethylene Glycol (Miralax) 17 gm HSPRN PRN ORAL Constipation 01/02/19 21:00 02/01/19 20:59 Regadenoson (Lexiscan) 0.4 mg ONCE PRN IV Stress test 01/02/19 07:15 01/04/19 23:59 Temazepam (Restoril) 15 mg HSPRN PRN ORAL Insomnia 01/02/19 21:00 01/09/19 20:59 Joy Huertas MD Jan 02, 2019 19:29
[2019-01-02] MEDS ORDERED: Miralax 17gm pkt ORAL PRN (21:00)
[2019-01-02] MEDS: Atorvastatin 20mg tab ORAL SCH (21:57)
--- NOTE | 2019-01-02 22:00 | NUR ---
NURSE NOTES: Noted pt bp of 196/110. PRN bp med given. SR. No signs of pain noted. Other VS WNL noted. Will continue to monitor.
[2019-01-03] VITALS: BP 164/110
--- NOTE | 2019-01-03 | NUR ---
NURSE NOTES: Noted pt BP of 164/110. SR. No signs of other distress noted. Will continue to monitor.
[2019-01-03] MEDS: D5NS 1,000 ML IV SCH ×3 (02:50→23:17)
[2019-01-03 03:18] VITALS: BP 133/101
--- NOTE | 2019-01-03 03:26 | NUR ---
NURSE NOTES: Around 0100, noted pt having hard time falling asleep. PRN med given. Bed bath given. Observed pt sleeping and BP of 133/101 noted. SR and no other distress noted at this time. Will continue to monitor.
--- NOTE | 2019-01-03 07:39 | NUR ---
HAND-OFF: Report given to REJI Mauricio. No acute distres noted at this time.
[2019-01-03 07:50] LABS: BASOPHILS % (AUTO) 0.7 % (0.0-2.0); EOSINOPHILS % (AUTO) 9.8 % (0.0-3.0); HEMATOCRIT 36.9 % (42.0-52.0); HEMOGLOBIN 11.8 G/DL (14.2-18.0); LYMPHOCYTES % (AUTO) 24.8 % (20.0-45.0); MEAN CORPUSCULAR VOLUME 94 FL (80-99); MONOCYTES % (AUTO) 11.5 % (1.0-10.0); NEUTROPHILS % (AUTO) 53.3 % (45.0-75.0); PLATELET COUNT 209 K/UL (150-450); RED BLOOD COUNT 3.91 M/UL (4.70-6.10); RED CELL DISTRIBUTION WIDTH 13.1 % (11.6-14.8)
[2019-01-03 08:00] VITALS: BP 153/99
--- NOTE | 2019-01-03 08:11 | NUR ---
NURSE NOTES: Received report from REJI Godoy. Patient in bed resting, no active s/s cardiac, respiratory distress noticed at this time. Patient on room air, AOx1, SR with HR 75. IV on left wrist 20G, asymptomatic, patent, intact, IV fluid running as prescribed rate. Endorsed patient schedule for stress test today, NPO at midnight, need of consent from family member. Bed in lowest position, side rails upx3, call light within reach. Will continue to monitor.
[2019-01-03 08:33] LABS: ANION GAP 6 mmol/L (5-15); BLOOD UREA NITROGEN 9 mg/dL (7-18); CALCIUM 8.2 MG/DL (8.5-10.1); CARBON DIOXIDE 26 MMOL/L (21-32); CHLORIDE 110 MMOL/L (98-107); CREATININE 0.8 MG/DL (0.55-1.30); POTASSIUM 3.4 MMOL/L (3.5-5.1); SODIUM 142 MMOL/L (136-145)
--- NOTE | 2019-01-03 08:45 | Cardiac Electrophysiology PN ---
Assessment/Plan Assessment/Plan 1. Troponin elevation. The levels are flat 0.13, 0.14, 0.14. The patient denies any CP or SOB. His 12-lead EKG showed sinus rhythm with left ventricular hypertrophy with nonspecific ST-T wave abnormality. We will treat the patient medically with beta-anderson and statin. Off aspirin for GI bleed Scheduled for Nuclear stress test today pending conset 2. Hypertension. Despite metoprolol 50 mg b.i.d. Add Norvasc 5 po bid. Also is on p.r.n. clonidine. 3. GI bleed. The patient's hemoglobin is stable at around 14. EGD pending per Dr Marilin LUI RN Subjective Subjective No CP or SOB. BP was as high as 90 and got Clonidine once again. Scheduled for stress test today but no consent yet. Objective Last 24 Hour Vital Signs Date Time Temp Pulse Resp B/P (MAP) Pulse Ox O2 Delivery O2 Flow Rate FiO2 01/03/19 08:00 97.7 93 20 153/99 (117) 98 01/03/19 06:13 187/91 01/03/19 04:00 75 01/03/19 03:18 98.6 62 17 133/101 (112) 96 01/03/19 00:00 66 01/03/19 00:00 98.8 71 17 164/110 (128) 96 01/02/19 22:01 196/83 01/02/19 22:00 70 196/83 01/02/19 21:00 Room Air 01/02/19 20:00 98.6 82 20 180/110 (133) 96 01/02/19 20:00 79 01/02/19 16:00 75 01/02/19 16:00 98.6 82 20 133/80 (97) 98 01/02/19 12:00 97.0 70 18 131/67 (88) 97 01/02/19 12:00 67 Intake and Output 01/02/19 01/03/19 19:00 07:00 Intake Total 1208 ml 740 ml Output Total 100 ml 1200 ml Balance 1108 ml -460 ml Intake Oral 260 ml 240 ml IV Total 948 ml 500 ml Output Urine Total 100 ml 1200 ml # Voids 2 2 # Bowel Movements 1 Laboratory Tests Test 01/03/19 07:11 White Blood Count 6.0 K/UL (4.8-10.8) Red Blood Count 3.91 M/UL (4.70-6.10) L Hemoglobin 11.8 G/DL (14.2-18.0) L Hematocrit 36.9 % (42.0-52.0) L Mean Corpuscular Volume 94 FL (80-99) Mean Corpuscular Hemoglobin 30.2 PG (27.0-31.0) Mean Corpuscular Hemoglobin Concent 32.0 G/DL (32.0-36.0) Red Cell Distribution Width 13.1 % (11.6-14.8) Platelet Count 209 K/UL (150-450) Mean Platelet Volume 5.0 FL (6.5-10.1) L Neutrophils (%) (Auto) 53.3 % (45.0-75.0) Lymphocytes (%) (Auto) 24.8 % (20.0-45.0) Monocytes (%) (Auto) 11.5 % (1.0-10.0) H Eosinophils (%) (Auto) 9.8 % (0.0-3.0) H Basophils (%) (Auto) 0.7 % (0.0-2.0) Sodium Level 142 MMOL/L (136-145) Potassium Level 3.4 MMOL/L (3.5-5.1) L Chloride Level 110 MMOL/L (98-107) H Carbon Dioxide Level 26 MMOL/L (21-32) Anion Gap 6 mmol/L (5-15) Blood Urea Nitrogen 9 mg/dL (7-18) Creatinine 0.8 MG/DL (0.55-1.30) Estimat Glomerular Filtration Rate > 60 mL/min (>60) Glucose Level 90 MG/DL (74-106) Calcium Level 8.2 MG/DL (8.5-10.1) L Objective HEAD AND NECK: showed no JVD. LUNGS: Clear. CARDIOVASCULAR: Shows regular S1 and S2 with no gallop. ABDOMEN: Soft. EXTREMITIES: No pitting edema. Juan Carlos Aguilar MD Jan 03, 2019 08:45
[2019-01-03] MEDS: Metoprolol Tartrate 50mg tab ORAL SCH ×2 (09:00→21:37)
--- NOTE | 2019-01-03 09:12 | NUR ---
NURSE NOTES: Dr. Aguilar made aware patient's BP last night elevated to 190s, per Dr. Aguilar, Norvasc 5 mg PO BID, order noted, entered, carried out. Family member Ivory, Daughter called and received telephone consent for Stress test schedule for today. Ayaan, cariology department made aware. Dr. Aguilar made aware of K level today 3.4, per Dr. Aguilar, KCl 40 mEq IV once. Order noted, entered, carried out.
[2019-01-03] MEDS: Pantoprazole Inj IV SCH ×2 (09:23→21:37)
--- NOTE | 2019-01-03 10:14 | GI Progress Note ---
Assessment/Plan Problems: (1) Aphasia ICD Codes: R47.01 - Aphasia SNOMED: 84242516 (2) 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 stroke ICD Codes: I69.359 - Hemiplegia and hemiparesis following cerebral infarction affecting unspecified side SNOMED: 846568884 (3) History of CVA (cerebrovascular accident) ICD Codes: Z86.73 - Personal history of transient ischemic attack (TIA), and cerebral infarction without residual deficits SNOMED: 638658720 (4) Essential hypertension ICD Codes: I10 - Essential (primary) hypertension SNOMED: 45745848 (5) GI bleed ICD Codes: K92.2 - Gastrointestinal hemorrhage, unspecified SNOMED: 95269744 (6) Elevated troponin ICD Codes: R74.8 - Abnormal levels of other serum enzymes SNOMED: 958759202, 294399778, 038249923 Status: unchanged Status Narrative Discussed with Dr. Banegas. Assessment/Plan OB stool positive ppi BID swallow eval cardiology eval given elevated trop and plan for EGD when cleared fu H&H The patient was seen and examined at bedside and all new and available data was reviewed in the patients chart. I agree with the above findings, impression and plan. (Patient seen earlier today. Signature stamp does not reflect patient encounter time.). - Bib Banegas MD Subjective Gastrointestinal/Abdominal: Reports: no symptoms Subjective limited Objective Last 24 Hour Vital Signs Date Time Temp Pulse Resp B/P (MAP) Pulse Ox O2 Delivery O2 Flow Rate FiO2 01/03/19 10:10 93 153/99 01/03/19 09:00 93 153/99 01/03/19 08:00 97.7 93 20 153/99 (117) 98 01/03/19 08:00 62 01/03/19 06:13 187/91 01/03/19 04:00 75 01/03/19 03:18 98.6 62 17 133/101 (112) 96 01/03/19 00:00 66 01/03/19 00:00 98.8 71 17 164/110 (128) 96 01/02/19 22:01 196/83 01/02/19 22:00 70 196/83 01/02/19 21:00 Room Air 01/02/19 20:00 98.6 82 20 180/110 (133) 96 01/02/19 20:00 79 01/02/19 16:00 75 01/02/19 16:00 98.6 82 20 133/80 (97) 98 01/02/19 12:00 97.0 70 18 131/67 (88) 97 01/02/19 12:00 67 Intake and Output 01/02/19 01/03/19 19:00 07:00 Intake Total 1208 ml 740 ml Output Total 100 ml 1200 ml Balance 1108 ml -460 ml Intake Oral 260 ml 240 ml IV Total 948 ml 500 ml Output Urine Total 100 ml 1200 ml # Voids 2 2 # Bowel Movements 1 Laboratory Tests Test 01/03/19 07:11 White Blood Count 6.0 K/UL (4.8-10.8) Red Blood Count 3.91 M/UL (4.70-6.10) L Hemoglobin 11.8 G/DL (14.2-18.0) L Hematocrit 36.9 % (42.0-52.0) L Mean Corpuscular Volume 94 FL (80-99) Mean Corpuscular Hemoglobin 30.2 PG (27.0-31.0) Mean Corpuscular Hemoglobin Concent 32.0 G/DL (32.0-36.0) Red Cell Distribution Width 13.1 % (11.6-14.8) Platelet Count 209 K/UL (150-450) Mean Platelet Volume 5.0 FL (6.5-10.1) L Neutrophils (%) (Auto) 53.3 % (45.0-75.0) Lymphocytes (%) (Auto) 24.8 % (20.0-45.0) Monocytes (%) (Auto) 11.5 % (1.0-10.0) H Eosinophils (%) (Auto) 9.8 % (0.0-3.0) H Basophils (%) (Auto) 0.7 % (0.0-2.0) Sodium Level 142 MMOL/L (136-145) Potassium Level 3.4 MMOL/L (3.5-5.1) L Chloride Level 110 MMOL/L (98-107) H Carbon Dioxide Level 26 MMOL/L (21-32) Anion Gap 6 mmol/L (5-15) Blood Urea Nitrogen 9 mg/dL (7-18) Creatinine 0.8 MG/DL (0.55-1.30) Estimat Glomerular Filtration Rate > 60 mL/min (>60) Glucose Level 90 MG/DL (74-106) Calcium Level 8.2 MG/DL (8.5-10.1) L Height (Feet): 5 Height (Inches): 7.00 Weight (Pounds): 154 General Appearance: WD/WN, no apparent distress, alert Cardiovascular: normal rate Respiratory/Chest: normal breath sounds, no respiratory distress Abdominal Exam: normal bowel sounds, non tender, soft Extremities: non-tender Heather Gonzalez NP Jan 03, 2019 10:14
--- NOTE | 2019-01-03 11:28 | NUR ---
CARDIOLOGY Pt was not oriented. Pt's daughter Breanna gave consent for her father to have Lexiscan done. But Dr. Santana refused to do stress test for disoriented pts.
[2019-01-03 12:00] VITALS: BP 163/99
--- NOTE | 2019-01-03 13:31 | Cardiology Report ---
APPROVED REPORT EXAM: Two-dimensional and M-mode echocardiogram with Doppler and color Doppler. INDICATION Elevated troponin M-Mode DIMENSIONS IVSd1.8 (0.7-1.1cm)Left Atrium (MM)2.6 (1.6-4.0cm) LVDd2.9 (3.5-5.6cm)Aortic Root2.8 (2.0-3.7cm) PWd1.6 (0.7-1.1cm)Aortic Cusp Exc.2.0 (1.5-2.0cm) LVDs1.4 (2.5-4.0cm) PWs2.1 cm Normal left ventricular chamber size, systolic function and wall motion. Left ventricular ejection fraction estimated to be 60%. Mild left ventricular hypertrophy. No evidence of pericardial effusion. All other cardiac chamber sizes are within normal limits. Focal aortic valve sclerosis with adequate cusp excursion. Thickened mitral valve leaflets with normal excursion. Mitral annulus and aortic root calcification. Pulmonic valve not well visualized. Normal tricuspid valve structure. Subcostal views not obtainable. A color flow and spectral Doppler study was performed and revealed: Mild aortic regurgitation. No mitral regurgitation. Mitral diastolic velocities suggest mild left ventricular diastolic dysfunction (Grade I). Trace tricuspid regurgitation. Tricuspid systolic velocities suggests peak right ventricular systolic pressure of 34 mmHg. No pulmonic regurgitation present.
--- NOTE | 2019-01-03 13:34 | Internal Med Progress Note ---
Subjective Date of Service: Jan 03, 2019 Physician Name Nicholas Chandler Attending Physician Ted Dunn MD Current Medications Medications (Trade) Dose Ordered Sig/Barby Route PRN Reason Start Time Stop Time Status Last Admin Dose Admin Acetaminophen (Tylenol) 650 mg Q4H PRN ORAL T>100.5 01/02/19 08:00 01/29/19 07:59 Amlodipine Besylate (Norvasc) 5 mg BID ORAL 01/03/19 09:00 02/02/19 08:59 01/03/19 10:10 Atorvastatin Calcium (Lipitor) 20 mg BEDTIME ORAL 01/02/19 21:00 01/30/19 20:59 01/02/19 21:57 Clonidine HCl (Catapres Tab) 0.1 mg Q8H PRN ORAL SBP>160mmHg 01/02/19 07:30 01/29/19 07:29 01/03/19 06:13 Dextrose (Dextrose 50%) 25 ml Q30M PRN IV Hypoglycemia 01/02/19 07:30 01/29/19 00:59 Dextrose (Dextrose 50%) 50 ml Q30M PRN IV Hypoglycemia 01/02/19 07:30 01/29/19 00:59 Dextrose/Sodium Chloride 1,000 ml @ 100 mls/hr Q10H IV 01/02/19 08:00 01/29/19 07:59 01/03/19 13:02 Diphenhydramine HCl (Benadryl) 25 mg Q6H PRN ORAL Itching/Pruritis 01/02/19 07:30 01/29/19 07:29 Metoprolol Tartrate (Lopressor) 50 mg Q12HR ORAL 01/02/19 09:00 01/30/19 20:59 01/02/19 22:00 Morphine Sulfate (Morphine Sulfate) 2 mg Q4H PRN IVP Severe Pain (Pain Scale 7-10) 01/02/19 08:00 01/06/19 07:59 Nitroglycerin (Ntg) 0.4 mg Q5M X 3 DOSES PRN SL Prn Chest Pain 01/02/19 07:15 01/29/19 00:59 Ondansetron HCl (Zofran) 4 mg Q6H PRN IVP Nausea & Vomiting 01/02/19 08:00 01/29/19 07:59 Pantoprazole (Protonix) 40 mg EVERY 12 HOURS IV 01/02/19 09:00 01/30/19 09:29 01/03/19 09:23 Polyethylene Glycol (Miralax) 17 gm HSPRN PRN ORAL Constipation 01/02/19 21:00 02/01/19 20:59 Potassium Chloride 100 ml @ 100 mls/hr Q1HR IVPB 01/03/19 10:00 01/03/19 13:59 01/03/19 13:01 Regadenoson (Lexiscan) 0.4 mg ONCE PRN IV Stress test 01/02/19 07:15 01/04/19 23:59 Temazepam (Restoril) 15 mg HSPRN PRN ORAL Insomnia 01/02/19 21:00 01/09/19 20:59 01/03/19 01:12 Allergies: Coded Allergies: No Known Allergies (Unverified , 12/29/18) ROS Limited/Unobtainable: No Constitutional: Reports: no symptoms HEENT: Reports: no symptoms Cardiovascular: Reports: no symptoms Respiratory: Reports: no symptoms Gastrointestinal/Abdominal: Reports: no symptoms Genitourinary: Reports: no symptoms Neurologic/Psychiatric: Reports: no symptoms Subjective 68 YO M admitted with Gastrointestinal hemorrhage. Now elevated troponin. Cover for Int Med-DR Dunn Objective Last Vital Signs Date Time Temp Pulse Resp B/P (MAP) Pulse Ox O2 Delivery O2 Flow Rate FiO2 01/03/19 10:10 93 153/99 01/03/19 08:00 97.7 20 98 01/02/19 21:00 Room Air 12/29/18 23:23 97 Laboratory Tests Test 01/03/19 07:11 White Blood Count 6.0 K/UL (4.8-10.8) Red Blood Count 3.91 M/UL (4.70-6.10) L Hemoglobin 11.8 G/DL (14.2-18.0) L Hematocrit 36.9 % (42.0-52.0) L Mean Corpuscular Volume 94 FL (80-99) Mean Corpuscular Hemoglobin 30.2 PG (27.0-31.0) Mean Corpuscular Hemoglobin Concent 32.0 G/DL (32.0-36.0) Red Cell Distribution Width 13.1 % (11.6-14.8) Platelet Count 209 K/UL (150-450) Mean Platelet Volume 5.0 FL (6.5-10.1) L Neutrophils (%) (Auto) 53.3 % (45.0-75.0) Lymphocytes (%) (Auto) 24.8 % (20.0-45.0) Monocytes (%) (Auto) 11.5 % (1.0-10.0) H Eosinophils (%) (Auto) 9.8 % (0.0-3.0) H Basophils (%) (Auto) 0.7 % (0.0-2.0) Sodium Level 142 MMOL/L (136-145) Potassium Level 3.4 MMOL/L (3.5-5.1) L Chloride Level 110 MMOL/L (98-107) H Carbon Dioxide Level 26 MMOL/L (21-32) Anion Gap 6 mmol/L (5-15) Blood Urea Nitrogen 9 mg/dL (7-18) Creatinine 0.8 MG/DL (0.55-1.30) Estimat Glomerular Filtration Rate > 60 mL/min (>60) Glucose Level 90 MG/DL (74-106) Calcium Level 8.2 MG/DL (8.5-10.1) L Intake and Output 01/02/19 01/03/19 19:00 07:00 Intake Total 1208 ml 740 ml Output Total 100 ml 1200 ml Balance 1108 ml -460 ml Intake Oral 260 ml 240 ml IV Total 948 ml 500 ml Output Urine Total 100 ml 1200 ml # Voids 2 2 # Bowel Movements 1 Objective PHYSICAL EXAMINATION: GENERALLY: The patient is a well-developed and well-nourished female, in no apparent distress. HEENT: Eyes, pupils are equal and responsive to light and accommodation. Extraocular movements are intact. NECK: Supple without lymphadenopathy. CHEST: Lungs are clear to auscultation bilaterally without wheezes or rales. CARDIOVASCULAR: Regular rhythm and rate. S1 and S2 are normal without murmurs, rubs, or gallops. ABDOMEN: Soft, nontender, and nondistended. Positive bowel sounds. No evidence of hepatosplenomegaly. Currently, no rebound or guarding noted. EXTREMITIES: Negative for clubbing, cyanosis, or edema. RECTAL/GENITAL: Not performed. NEUROLOGIC: Cranial nerves II through XII are grossly intact. Assessment/Plan Assessment/Plan ASSESSMENT: This is a 68-year-old female. 1. Gastrointestinal hemorrhage. 2. Hypertension. 3. Hypercholesterolemia. 4. Cerebrovascular disease. 5. Hemiplegia. 6. Aphasia. 7. Elevated troponin. TREATMENT: 1. Gastrointestinal hemorrhage. A Gastroenterology consultation has been obtained with Dr. Bib Banegas. Possible endoscopy when cleared by Cardiology 2. Hypertension. Continue enalapril and diltiazem as above. Continue metoprolol as above. 3. Hypercholesterolemia. Continue atorvastatin as above. 4. Cerebrovascular disease/hemiplegia/aphasia. Hold aspirin for now due to gastrointestinal hemorrhage. 5. Elevated troponin. A Cardiology consultation=Dr Aguilar. Await nuclear stress test on Thursday01/03/19 Nicholas Chandler MD Jan 03, 2019 13:34
--- NOTE | 2019-01-03 14:27 | NUR ---
NURSE NOTES: Dr. Aguilar made aware per Dr. Santana, unable to do Lexiscan due to altered mental status, and around 1341, 5 beats of SVT. No order given at this time. Will continue to monitor.
--- NOTE | 2019-01-03 15:50 | NUR ---
NURSE NOTES: Dr. Aguilar made aware of Lexiscan being cancelled per Dr. Santana, and 5 beats of SVT. No order given at this time.
--- NOTE | 2019-01-03 15:52 | NUR ---
NURSE NOTES: Dr Santana came in the morning to do a stress test for the patient, however, the pat was non verbal to the doctors request, therefore, dr Santana refused to do the exam, Md Aguilar notified.
[2019-01-03 16:00] VITALS: BP 165/104
--- NOTE | 2019-01-03 16:21 | Diagnostic Imaging Report ---
Indication: chest pain Technique: The study was conducted under the supervision of a starch crab. 10 mCi of technetium 99m Myoview was administered intravenously. Three plane SPECT imaging of the heart was then performed. The stress portion of the examination was canceled by Dr. Santana. Comparison: None Clinical data: None provided Findings: The myocardial perfusion scan demonstrates no perfusion abnormalities on the resting SPECT images. IMPRESSION: Incomplete examination. Unremarkable resting SPECT images
--- NOTE | 2019-01-03 18:35 | NUR ---
NURSE NOTES: Dr. Aguilar and Dr. Santana at the nursing station, per Dr. Santana, unable to do Lexiscan due to patient unable to state pain in chest. Dr. Aguilar made aware of 5 beats of SVT again. Dr. Aguilar stated that is why patient need stress test. No order given at this time. will continue to monitor.
--- NOTE | 2019-01-03 19:35 | NUR ---
NURSE NOTES: Received report fromLuly RN. Patient in bed resting. No acute distress/discomfort noted. Unable to follow commands. Will continue to monitor.
--- NOTE | 2019-01-03 19:48 | NUR ---
HAND-OFF: Report given to REJI Tobias.
[2019-01-03 20:00] VITALS: BP 146/100
[2019-01-03] MEDS: Atorvastatin 20mg tab ORAL SCH (21:36)
[2019-01-04] VITALS (7 sets, daily range): BP systolic 87–169; BP diastolic 47–104
[2019-01-04 07:31] LABS: BASOPHILS % (AUTO) 0.6 % (0.0-2.0); EOSINOPHILS % (AUTO) 7.5 % (0.0-3.0); HEMATOCRIT 43.4 % (42.0-52.0); HEMOGLOBIN 14.2 G/DL (14.2-18.0); LYMPHOCYTES % (AUTO) 21.4 % (20.0-45.0); MEAN CORPUSCULAR VOLUME 95 FL (80-99); MONOCYTES % (AUTO) 8.9 % (1.0-10.0); NEUTROPHILS % (AUTO) 61.5 % (45.0-75.0); PLATELET COUNT 253 K/UL (150-450); RED BLOOD COUNT 4.58 M/UL (4.70-6.10); RED CELL DISTRIBUTION WIDTH 13.4 % (11.6-14.8); WHITE BLOOD COUNT 6.6 K/UL (4.8-10.8)
--- NOTE | 2019-01-04 07:40 | NUR ---
HAND-OFF: Report given to REJI Garcia. Patient stable at Hand-off.
[2019-01-04 07:42] LABS: ANION GAP 7 mmol/L (5-15); BLOOD UREA NITROGEN 7 mg/dL (7-18); CALCIUM 8.5 MG/DL (8.5-10.1); CARBON DIOXIDE 27 MMOL/L (21-32); CHLORIDE 108 MMOL/L (98-107); CREATININE 0.8 MG/DL (0.55-1.30); POTASSIUM 3.6 MMOL/L (3.5-5.1); SODIUM 141 MMOL/L (136-145)
--- NOTE | 2019-01-04 08:05 | NUR ---
NURSE NOTES: Pt in bed in low position, bed alarm on, call light at bedside, pt linen clean, condom cath on, pt Ox1 name only, unable to verbalize other needs, pt 1:1 feeder d/t CVA, vitals WNL, pt needs a lot of attention as he does not move, IV intact and patent, no s/s of distress or sob noted.
[2019-01-04] MEDS: Metoprolol Tartrate 50mg tab ORAL SCH ×2 (09:32→20:13)
[2019-01-04] MEDS: Pantoprazole Inj IV SCH (09:33)
--- NOTE | 2019-01-04 10:31 | GI Progress Note ---
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 ICD Codes: I69.359 - Hemiplegia and hemiparesis following cerebral infarction affecting unspecified side SNOMED: 476662599 (3) History of CVA (cerebrovascular accident) ICD Codes: Z86.73 - Personal history of transient ischemic attack (TIA), and cerebral infarction without residual deficits SNOMED: 625243765 (4) Essential hypertension ICD Codes: I10 - Essential (primary) hypertension SNOMED: 84375566 (5) GI bleed ICD Codes: K92.2 - Gastrointestinal hemorrhage, unspecified SNOMED: 62622693 (6) Elevated troponin ICD Codes: R74.8 - Abnormal levels of other serum enzymes SNOMED: 810913309, 299075291, 617175960 Status: unchanged Status Narrative Discussed with Dr. Banegas. Assessment/Plan OB stool positive ppi BID swallow eval cardiology eval given elevated trop and plan for EGD when cleared, stress test cancelled fu H&H The patient was seen and examined at bedside and all new and available data was reviewed in the patients chart. I agree with the above findings, impression and plan. (Patient seen earlier today. Signature stamp does not reflect patient encounter time.). - Bib Banegas MD Subjective Gastrointestinal/Abdominal: Reports: no symptoms Subjective limited Objective Last 24 Hour Vital Signs Date Time Temp Pulse Resp B/P (MAP) Pulse Ox O2 Delivery O2 Flow Rate FiO2 01/04/19 09:32 64 94/47 01/04/19 09:32 64 94/47 01/04/19 08:05 97.2 64 20 94/47 (63) 98 01/04/19 05:45 164/96 01/04/19 04:00 97.5 63 18 164/96 (118) 96 01/04/19 04:00 63 01/04/19 00:00 63 01/04/19 00:00 97.6 77 18 149/99 (116) 96 01/03/19 21:37 79 146/100 01/03/19 21:00 Room Air 01/03/19 20:00 97.0 79 17 146/100 (115) 95 01/03/19 20:00 70 01/03/19 18:05 65 165/104 01/03/19 16:00 70 01/03/19 16:00 97.0 65 20 165/104 (124) 98 01/03/19 12:00 98.1 63 20 163/99 (120) 98 01/03/19 12:00 61 Intake and Output 01/03/19 01/04/19 19:00 07:00 Intake Total 750 ml 1100 ml Output Total 1100 ml Balance 750 ml 0 ml Intake Oral 150 ml IV Total 600 ml 1100 ml Output Urine Total 1100 ml # Voids 2 5 Laboratory Tests Test 01/04/19 06:48 White Blood Count 6.6 K/UL (4.8-10.8) Red Blood Count 4.58 M/UL (4.70-6.10) L Hemoglobin 14.2 G/DL (14.2-18.0) Hematocrit 43.4 % (42.0-52.0) Mean Corpuscular Volume 95 FL (80-99) Mean Corpuscular Hemoglobin 30.9 PG (27.0-31.0) Mean Corpuscular Hemoglobin Concent 32.7 G/DL (32.0-36.0) Red Cell Distribution Width 13.4 % (11.6-14.8) Platelet Count 253 K/UL (150-450) Mean Platelet Volume 5.1 FL (6.5-10.1) L Neutrophils (%) (Auto) 61.5 % (45.0-75.0) Lymphocytes (%) (Auto) 21.4 % (20.0-45.0) Monocytes (%) (Auto) 8.9 % (1.0-10.0) Eosinophils (%) (Auto) 7.5 % (0.0-3.0) H Basophils (%) (Auto) 0.6 % (0.0-2.0) Sodium Level 141 MMOL/L (136-145) Potassium Level 3.6 MMOL/L (3.5-5.1) Chloride Level 108 MMOL/L (98-107) H Carbon Dioxide Level 27 MMOL/L (21-32) Anion Gap 7 mmol/L (5-15) Blood Urea Nitrogen 7 mg/dL (7-18) Creatinine 0.8 MG/DL (0.55-1.30) Estimat Glomerular Filtration Rate > 60 mL/min (>60) Glucose Level 99 MG/DL (74-106) Calcium Level 8.5 MG/DL (8.5-10.1) Height (Feet): 5 Height (Inches): 7.00 Weight (Pounds): 154 General Appearance: WD/WN, no apparent distress, alert Cardiovascular: normal rate Respiratory/Chest: normal breath sounds, no respiratory distress Abdominal Exam: normal bowel sounds, non tender, soft Extremities: normal range of motion, non-tender Heather Gonzalez NP Jan 04, 2019 10:31
[2019-01-04] MEDS ORDERED: D5NS 1,000 ML IV ONE (11:45)
--- NOTE | 2019-01-04 13:01 | NUR ---
*-* INSURANCE *-* ALL CLINICALS AND REVIEWS HAVE BEEN FAXED TO: [facility] F: [phone]
[2019-01-04] MEDS: D5NS 1,000 ML IV SCH ×2 (13:50→20:18)
--- NOTE | 2019-01-04 15:00 | Cardiac Electrophysiology PN ---
Assessment/Plan Assessment/Plan 1. Troponin elevation. The levels are flat 0.13, 0.14, 0.14. The patient denies any CP or SOB. His 12-lead EKG showed sinus rhythm with left ventricular hypertrophy with nonspecific ST-T wave abnormality. We will treat the patient medically with beta-anderson and statin. Off aspirin for GI bleed Nuclear stress test cancelled by Dr Santana for AMS 2. Hypertension. On metoprolol 50 mg bid. DC Norvasc as BP was low in 80s and got D5 NS at 100 cc hr e. 3. GI bleed. The patient's hemoglobin is stable at around 14. EGD pending per Dr Marilin LUI RN Subjective Subjective No CP or SOB. Stress test cancelled as patient unable to cooperate. Rarely talks. BP was 80s and didn't get BP meds. Objective Last 24 Hour Vital Signs Date Time Temp Pulse Resp B/P (MAP) Pulse Ox O2 Delivery O2 Flow Rate FiO2 01/04/19 12:00 97.9 65 20 87/47 (60) 94 01/04/19 09:32 64 94/47 01/04/19 09:32 64 94/47 01/04/19 08:05 97.2 64 20 94/47 (63) 98 01/04/19 05:45 164/96 01/04/19 04:00 97.5 63 18 164/96 (118) 96 01/04/19 04:00 63 01/04/19 00:00 63 01/04/19 00:00 97.6 77 18 149/99 (116) 96 01/03/19 21:37 79 146/100 01/03/19 21:00 Room Air 01/03/19 20:00 97.0 79 17 146/100 (115) 95 01/03/19 20:00 70 01/03/19 18:05 65 165/104 01/03/19 16:00 70 01/03/19 16:00 97.0 65 20 165/104 (124) 98 Intake and Output 01/03/19 01/04/19 19:00 07:00 Intake Total 750 ml 1100 ml Output Total 1100 ml Balance 750 ml 0 ml Intake Oral 150 ml IV Total 600 ml 1100 ml Output Urine Total 1100 ml # Voids 2 5 Laboratory Tests Test 01/04/19 06:48 White Blood Count 6.6 K/UL (4.8-10.8) Red Blood Count 4.58 M/UL (4.70-6.10) L Hemoglobin 14.2 G/DL (14.2-18.0) Hematocrit 43.4 % (42.0-52.0) Mean Corpuscular Volume 95 FL (80-99) Mean Corpuscular Hemoglobin 30.9 PG (27.0-31.0) Mean Corpuscular Hemoglobin Concent 32.7 G/DL (32.0-36.0) Red Cell Distribution Width 13.4 % (11.6-14.8) Platelet Count 253 K/UL (150-450) Mean Platelet Volume 5.1 FL (6.5-10.1) L Neutrophils (%) (Auto) 61.5 % (45.0-75.0) Lymphocytes (%) (Auto) 21.4 % (20.0-45.0) Monocytes (%) (Auto) 8.9 % (1.0-10.0) Eosinophils (%) (Auto) 7.5 % (0.0-3.0) H Basophils (%) (Auto) 0.6 % (0.0-2.0) Sodium Level 141 MMOL/L (136-145) Potassium Level 3.6 MMOL/L (3.5-5.1) Chloride Level 108 MMOL/L (98-107) H Carbon Dioxide Level 27 MMOL/L (21-32) Anion Gap 7 mmol/L (5-15) Blood Urea Nitrogen 7 mg/dL (7-18) Creatinine 0.8 MG/DL (0.55-1.30) Estimat Glomerular Filtration Rate > 60 mL/min (>60) Glucose Level 99 MG/DL (74-106) Calcium Level 8.5 MG/DL (8.5-10.1) Objective HEAD AND NECK: showed no JVD. LUNGS: Clear. CARDIOVASCULAR: Shows regular S1 and S2 with no gallop. ABDOMEN: Soft. EXTREMITIES: No pitting edema. Juan Carlos Aguilar MD Jan 04, 2019 15:00
--- NOTE | 2019-01-04 15:12 | NUR ---
DIGITAL PRINT OPERATORBUILDER OPERATOR SI: ELEVATED TROPONIN,GI BLEED T. 97.5 HR 63 RR 18 B/P 94/47 RA 98% IS: IVF D5NS @ 100ML/HR PROTONIX IV LOPRESSOR LIPITOR CLEARED BY CARDIAC FOR GI PROCEDURES TELE STATUS
--- NOTE | 2019-01-04 15:31 | NUR ---
RD ASSESSMENT & RECOMMENDATIONS SEE CARE ACTIVITY FOR COMPLETE ASSESSMENT DAILY ESTIMATED NEEDS: Needs based on Cardiac, 70kg 25-30 kcals/kg 0504-7827 total kcals 1-1.3 g protein/kg 70-91 g total protein 25-30 mL/kg 0832-2361 total fluid mLs NUTRITION DIAGNOSIS: Swallowing difficulty R/T dyspahgia, h/o CVA as evidenced by CONSTRUCTION PROJECT COORDINATOR recommends pureed moist texture. CURRENT DIET:KARISHMA, pureed moist PO DIET RECOMMENDATIONS: Maintain KARISHMA, texture per CONSTRUCTION PROJECT COORDINATOR ADDITIONAL RECOMMENDATIONS: * Calibrated bedscale wt * Monitor PO acceptance and tolerance * Monitor lytes, replete as needed * Monitor h/h : OB stool +, pending EGD once cleared by cardio
[2019-01-04] MEDS ORDERED: D5NS 1000ml IV ONE (15:34)
--- NOTE | 2019-01-04 15:59 | Internal Med Progress Note ---
Subjective Date of Service: Jan 04, 2019 Physician Name Nicholas Chandler Attending Physician Ted Dunn MD Current Medications Medications (Trade) Dose Ordered Sig/Barby Route PRN Reason Start Time Stop Time Status Last Admin Dose Admin Acetaminophen (Tylenol) 650 mg Q4H PRN ORAL T>100.5 01/02/19 08:00 01/29/19 07:59 Atorvastatin Calcium (Lipitor) 20 mg BEDTIME ORAL 01/02/19 21:00 01/30/19 20:59 01/03/19 21:36 Clonidine HCl (Catapres Tab) 0.1 mg Q8H PRN ORAL SBP>160mmHg 01/02/19 07:30 01/29/19 07:29 01/04/19 05:45 Dextrose (Dextrose 50%) 25 ml Q30M PRN IV Hypoglycemia 01/02/19 07:30 01/29/19 00:59 Dextrose (Dextrose 50%) 50 ml Q30M PRN IV Hypoglycemia 01/02/19 07:30 01/29/19 00:59 Dextrose/Sodium Chloride 1,000 ml @ 100 mls/hr Q10H IV 01/02/19 08:00 01/29/19 07:59 01/04/19 13:50 Diphenhydramine HCl (Benadryl) 25 mg Q6H PRN ORAL Itching/Pruritis 01/02/19 07:30 01/29/19 07:29 01/03/19 23:14 Metoprolol Tartrate (Lopressor) 50 mg Q12HR ORAL 01/02/19 09:00 01/30/19 20:59 01/03/19 21:37 Morphine Sulfate (Morphine Sulfate) 2 mg Q4H PRN IVP Severe Pain (Pain Scale 7-10) 01/02/19 08:00 01/06/19 07:59 Nitroglycerin (Ntg) 0.4 mg Q5M X 3 DOSES PRN SL Prn Chest Pain 01/02/19 07:15 01/29/19 00:59 Ondansetron HCl (Zofran) 4 mg Q6H PRN IVP Nausea & Vomiting 01/02/19 08:00 01/29/19 07:59 Pantoprazole (Protonix) 40 mg EVERY 12 HOURS IV 01/02/19 09:00 01/30/19 09:29 01/04/19 09:33 Polyethylene Glycol (Miralax) 17 gm HSPRN PRN ORAL Constipation 01/02/19 21:00 02/01/19 20:59 Regadenoson (Lexiscan) 0.4 mg ONCE PRN IV Stress test 01/02/19 07:15 01/04/19 23:59 Temazepam (Restoril) 15 mg HSPRN PRN ORAL Insomnia 01/02/19 21:00 01/09/19 20:59 01/03/19 23:14 Allergies: Coded Allergies: No Known Allergies (Unverified , 12/29/18) ROS Limited/Unobtainable: Yes Subjective 68 YO M admitted with Gastrointestinal hemorrhage. Now elevated troponin. Cover for Int Med-DR Dunn Objective Last Vital Signs Date Time Temp Pulse Resp B/P (MAP) Pulse Ox O2 Delivery O2 Flow Rate FiO2 01/04/19 12:00 97.9 65 20 87/47 (60) 94 01/03/19 21:00 Room Air 12/29/18 23:23 97 Laboratory Tests Test 01/04/19 06:48 White Blood Count 6.6 K/UL (4.8-10.8) Red Blood Count 4.58 M/UL (4.70-6.10) L Hemoglobin 14.2 G/DL (14.2-18.0) Hematocrit 43.4 % (42.0-52.0) Mean Corpuscular Volume 95 FL (80-99) Mean Corpuscular Hemoglobin 30.9 PG (27.0-31.0) Mean Corpuscular Hemoglobin Concent 32.7 G/DL (32.0-36.0) Red Cell Distribution Width 13.4 % (11.6-14.8) Platelet Count 253 K/UL (150-450) Mean Platelet Volume 5.1 FL (6.5-10.1) L Neutrophils (%) (Auto) 61.5 % (45.0-75.0) Lymphocytes (%) (Auto) 21.4 % (20.0-45.0) Monocytes (%) (Auto) 8.9 % (1.0-10.0) Eosinophils (%) (Auto) 7.5 % (0.0-3.0) H Basophils (%) (Auto) 0.6 % (0.0-2.0) Sodium Level 141 MMOL/L (136-145) Potassium Level 3.6 MMOL/L (3.5-5.1) Chloride Level 108 MMOL/L (98-107) H Carbon Dioxide Level 27 MMOL/L (21-32) Anion Gap 7 mmol/L (5-15) Blood Urea Nitrogen 7 mg/dL (7-18) Creatinine 0.8 MG/DL (0.55-1.30) Estimat Glomerular Filtration Rate > 60 mL/min (>60) Glucose Level 99 MG/DL (74-106) Calcium Level 8.5 MG/DL (8.5-10.1) Intake and Output 01/03/19 01/04/19 19:00 07:00 Intake Total 750 ml 1100 ml Output Total 1100 ml Balance 750 ml 0 ml Intake Oral 150 ml IV Total 600 ml 1100 ml Output Urine Total 1100 ml # Voids 2 5 Objective PHYSICAL EXAMINATION: GENERALLY: The patient is a well-developed and well-nourished female, in no apparent distress. HEENT: Eyes, pupils are equal and responsive to light and accommodation. Extraocular movements are intact. NECK: Supple without lymphadenopathy. CHEST: Lungs are clear to auscultation bilaterally without wheezes or rales. CARDIOVASCULAR: Regular rhythm and rate. S1 and S2 are normal without murmurs, rubs, or gallops. ABDOMEN: Soft, nontender, and nondistended. Positive bowel sounds. No evidence of hepatosplenomegaly. Currently, no rebound or guarding noted. EXTREMITIES: Negative for clubbing, cyanosis, or edema. RECTAL/GENITAL: Not performed. NEUROLOGIC: Cranial nerves II through XII are grossly intact. Assessment/Plan Assessment/Plan ASSESSMENT: This is a 68-year-old female. 1. Gastrointestinal hemorrhage. 2. Hypertension. 3. Hypercholesterolemia. 4. Cerebrovascular disease. 5. Hemiplegia. 6. Aphasia. 7. Elevated troponin. TREATMENT: 1. Gastrointestinal hemorrhage. A Gastroenterology consultation has been obtained with Dr. Bib Banegas. Possible endoscopy when cleared by Cardiology 2. Hypertension. Continue enalapril and diltiazem as above. Continue metoprolol as above. 3. Hypercholesterolemia. Continue atorvastatin as above. 4. Cerebrovascular disease/hemiplegia/aphasia. Hold aspirin for now due to gastrointestinal hemorrhage. 5. Elevated troponin. A Cardiology consultation=Dr Aguilar. Nuclear stress test cancelled Thursday01/03/19 due to altered mental status Nicholas Chandler MD Jan 04, 2019 15:59
--- NOTE | 2019-01-04 19:52 | NUR ---
HAND-OFF: Report given to Jv Blank.
[2019-01-04] MEDS: Atorvastatin 20mg tab ORAL SCH (20:13)
[2019-01-05] VITALS (7 sets, daily range): BP systolic 117–181; BP diastolic 70–99
--- NOTE | 2019-01-05 04:02 | Emergency Room Report ---
History of Present Illness General Chief Complaint: Gastrointestinal Bleed Source: Medical Record Present Illness HPI Patient is a 68 -year-old male presents after increased rectal bleeding from [facility]. Patient was noted to have bright red bloody stool. A prior history of dementia.History is markedly limited by patient's mental status. Allergies: Coded Allergies: No Known Allergies (Unverified , 12/29/18) Patient History Past Medical History: see triage record Reviewed Nursing Documentation: PMH: Agreed; PSxH: Agreed Nursing Documentation-PMH Hx Hypertension: Yes Hx Neurological Problems: Yes - HEMIPLEGIA, HEMIPARESIS, APHASIA, CATARACT, PRESBYOPHIA, Review of Systems All Other Systems: limited - Review of systems: Review systems is limited by patient's being a poor historian Physical Exam Vital Signs Date Time Temp Pulse Resp B/P (MAP) Pulse Ox O2 Delivery O2 Flow Rate FiO2 01/01/19 07:50 66 01/01/19 08:00 Room Air 01/01/19 08:00 98.6 18 139/85 (103) 96 Sp02 EP Interpretation: reviewed, normal General Appearance: alert, Chronically Ill Head: atraumatic ENT: normal ENT inspection, moist mucus membranes Neck: normal inspection, supple, no bony tend, limited range of motion Respiratory: normal inspection, lungs clear, normal breath sounds, no respiratory distress, no retraction, no wheezing Cardiovascular #1: regular rate, rhythm, no edema Gastrointestinal: soft Rectal: blood streaked stool Genitourinary: no CVA tenderness Musculoskeletal: back normal Neurologic: normal inspection, alert, responsive, aphasia Psychiatric: mood/affect normal Skin: no rash Medical Decision Making Diagnostic Impression: Primary Impression: GI bleed Additional Impressions: Essential hypertension Aphasia ER Course Presented for possible GI bleed. Differential diagnosis include was not limited to diverticulosis, coagulopathy, anemia among others. Because of complexity of patient's case laboratory testing and imaging studies were ordered. Patient was noted to have evidence of rectal bleeding. Patient was noted to have some discoloration of stool. Laboratory testing was ordered and was noted to be unremarkable. Hemoglobin is 15 platelet count was normal coagulation studies were normal. Due to the patient's use of oral anticoagulants patient will be admitted for further evaluation. Dr. Ted Dunn was contacted for inpatient management Last Vital Signs Date Time Temp Pulse Resp B/P (MAP) Pulse Ox O2 Delivery O2 Flow Rate FiO2 01/05/19 00:45 72 162/86 (111) 01/05/19 00:00 97.7 20 96 01/04/19 21:00 Room Air Status: improved Disposition: ADMITTED INPATIENT Condition: Stable Referrals: Garth Driver MD (PCP) Ta Flores MD Jan 05, 2019 04:02
[2019-01-05 04:26] LABS: BASOPHILS % (AUTO) 0.9 % (0.0-2.0); HEMATOCRIT 38.1 % (42.0-52.0); HEMOGLOBIN 12.6 G/DL (14.2-18.0); LYMPHOCYTES % (AUTO) 24.2 % (20.0-45.0); MEAN CORPUSCULAR VOLUME 94 FL (80-99); MONOCYTES % (AUTO) 9.8 % (1.0-10.0); PLATELET COUNT 227 K/UL (150-450); RED BLOOD COUNT 4.07 M/UL (4.70-6.10); RED CELL DISTRIBUTION WIDTH 13.3 % (11.6-14.8)
[2019-01-05 04:36] LABS: INR 1.1 (0.9-1.1)
[2019-01-05 04:38] LABS: BLOOD UREA NITROGEN 7 mg/dL (7-18); CALCIUM 8.3 MG/DL (8.5-10.1); CARBON DIOXIDE 30 MMOL/L (21-32); CREATININE 0.8 MG/DL (0.55-1.30)
[2019-01-05] MEDS: D5NS 1,000 ML IV SCH ×2 (06:11→16:19)
[2019-01-05 06:44] LABS: CHLORIDE 110 MMOL/L (98-107); SODIUM 143 MMOL/L (136-145)
[2019-01-05 06:46] LABS: ANION GAP 3 mmol/L (5-15)
--- NOTE | 2019-01-05 07:17 | NUR ---
HAND-OFF: Report given to REJI Babin.
--- NOTE | 2019-01-05 07:20 | NUR ---
NURSE NOTES: Received report from Jv/RN, Patient is awake, lying semi-barlow, resting comfortably, No sign of distress/SOB noted. IV site patent, no bleeding or infiltration noted. Bed in low position and locked. Call light and personal belonging within reach. Will continue plan of care.
[2019-01-05] MEDS: Metoprolol Tartrate 50mg tab ORAL SCH ×2 (08:49→20:45)
[2019-01-05] MEDS ORDERED: LR 1000ml 1,000 ML IVLG SCH (09:32)
--- NOTE | 2019-01-05 09:32 | Anethesia Preoperative Eval ---
Anesthesia Pre-op PMH/ROS General Date of Evaluation: Jan 05, 2019 Anesthesiologist: Dm ASA Score: ASA 3 Mallampati Score Class I : Soft palate, uvula, fauces, pillars visible Class II: Soft palate, uvula, fauces visible Class III: Soft palate, base of uvula visible Class IV: Only hard plate visible Mallampati Classification: Class III Surgeon: bayron Diagnosis: GI bleed Surgical Procedure: EGD Anesthesia History: none Family History: no anesthesia problems Allergies: Coded Allergies: No Known Allergies (Unverified , 12/29/18) Medications: see eMAR Patient NPO?: Yes NPO Date: Jan 04, 2019 NPO Time: 22:00 Past Medical History Cardiovascular: Reports: HTN, other - HLD, leaking troponins, number essentially unchanged, patient asymptomatic and cleared by cardiology as ekg wnl ; Denies: CAD, NH, valve dz, arrhythmia Pulmonary: Denies: asthma, COPD, HUMZA, other Gastrointestinal/Genitourinary: Reports: other - gi bleed; Denies: GERD, CRI, ESRD Neurologic/Psychiatric: Reports: CVA; Denies: dementia, depression/anxiety, TIA, other Endocrine: Denies: DM, hypothyroidism, steroids, other HEENT: Denies: cataract (L), cataract (R), glaucoma, [place] (L), [place] (R), other Hematology/Immune: Denies: anemia, DVT, bleeding disorder, other Musculoskeletal/Integumentary: Denies: OA, RA, DJD, DDD, edema, other PSxH Narrative: denies Anesthesia Pre-op Phys. Exam Physician Exam Last Vital Signs Date Time Temp Pulse Resp B/P (MAP) Pulse Ox O2 Delivery O2 Flow Rate FiO2 01/05/19 08:49 56 175/90 01/05/19 08:00 97.5 20 97 01/04/19 21:00 Room Air 12/29/18 23:23 97 Constitutional: NAD Cardiovascular: RRR Respiratory: CTA Airway Exam Mallampati Score: Class II MO: limited ROM: limited Anesthesia Pre-op A/P Labs Hematology Test 01/05/19 04:08 White Blood Count 6.0 K/UL (4.8-10.8) Red Blood Count 4.07 M/UL (4.70-6.10) L Hemoglobin 12.6 G/DL (14.2-18.0) L Hematocrit 38.1 % (42.0-52.0) L Mean Corpuscular Volume 94 FL (80-99) Mean Corpuscular Hemoglobin 30.9 PG (27.0-31.0) Mean Corpuscular Hemoglobin Concent 32.9 G/DL (32.0-36.0) Red Cell Distribution Width 13.3 % (11.6-14.8) Platelet Count 227 K/UL (150-450) Mean Platelet Volume 5.6 FL (6.5-10.1) L Neutrophils (%) (Auto) 56.0 % (45.0-75.0) Lymphocytes (%) (Auto) 24.2 % (20.0-45.0) Monocytes (%) (Auto) 9.8 % (1.0-10.0) Eosinophils (%) (Auto) 9.0 % (0.0-3.0) H Basophils (%) (Auto) 0.9 % (0.0-2.0) Coagulation Test 01/05/19 04:08 Prothrombin Time 11.8 SEC (9.30-11.50) H Prothromb Time International Ratio 1.1 (0.9-1.1) Activated Partial Thromboplast Time 32 SEC (23-33) Chemistry Test 01/05/19 04:08 Sodium Level 143 MMOL/L (136-145) Potassium Level 4.0 MMOL/L (3.5-5.1) Chloride Level 110 MMOL/L (98-107) H Carbon Dioxide Level 30 MMOL/L (21-32) Anion Gap 3 mmol/L (5-15) L Blood Urea Nitrogen 7 mg/dL (7-18) Creatinine 0.8 MG/DL (0.55-1.30) Estimat Glomerular Filtration Rate > 60 mL/min (>60) Glucose Level 99 MG/DL (74-106) Calcium Level 8.3 MG/DL (8.5-10.1) L Troponin I 0.162 ng/mL (0.000-0.056) Studies Pre-op Studies: EKG - sr Risk Assessment & Plan Assessment: ASA III Plan: MAC Status Change Before Surgery: Yes - case postponed as when patient connected to ASA monitors prior to procedure, new onset ST depressions noted Pre-Antibiotics Drug: N/A Anny Kinney MD Jan 05, 2019 09:32
--- NOTE | 2019-01-05 09:38 | Cardiology Progress Note ---
Assessment/Plan Status: stable Assessment/Plan Assessment/Plan Assessment/Plan 1. Troponin elevation. The levels are flat 0.13, 0.14, 0.14. The patient denies any CP or SOB. His 12-lead EKG showed sinus rhythm with left ventricular hypertrophy with nonspecific ST-T wave abnormality. Continue beta anderson and statin Restart aspirin when cleared by GI Nuclear stress test cancelled by Dr Santana for AMS Ok to do as outpatient when stable Ok to proceed with EGD as needed 2. Hypertension. On metoprolol 50 mg bid. 3. GI bleed. The patient's hemoglobin is stable at around 14. per GI Dispo planning per primary Subjective Cardiovascular: Reports: no symptoms Respiratory: Reports: no symptoms Gastrointestinal/Abdominal: Reports: no symptoms Genitourinary: Reports: no symptoms Subjective Coverage for [place] no acute events, no chest pain, vitals stable, no distress, nursing notes reviewed Objective Last 24 Hour Vital Signs Date Time Temp Pulse Resp B/P (MAP) Pulse Ox O2 Delivery O2 Flow Rate FiO2 01/05/19 08:49 56 175/90 01/05/19 08:00 97.5 56 20 175/90 (118) 97 01/05/19 04:00 97.7 60 20 156/90 (112) 98 01/05/19 04:00 60 01/05/19 00:45 72 162/86 (111) 01/05/19 00:04 181/95 01/05/19 00:00 97.7 70 20 181/95 (123) 96 01/05/19 00:00 70 01/04/19 21:00 Room Air 01/04/19 21:00 68 148/70 (96) 01/04/19 20:13 80 169/72 01/04/19 20:00 91 01/04/19 20:00 97.7 91 18 169/72 (104) 96 01/04/19 16:00 97.0 79 20 147/104 (118) 94 01/04/19 15:09 79 01/04/19 12:00 97.9 65 20 87/47 (60) 94 01/04/19 11:59 65 General Appearance: no apparent distress, alert EENT: PERRL/EOMI, normal ENT inspection, TMs normal, pharynx normal Neck: non-tender, normal alignment, supple, normal inspection, no JVD Rhythm: NSR Cardiovascular: normal peripheral pulses, normal rate, regular rhythm Respiratory/Chest: chest wall non-tender, lungs clear, normal breath sounds, no respiratory distress, no accessory muscle use Abdomen: normal bowel sounds, non tender, soft, no organomegaly, no mass Extremities: normal range of motion, non-tender, normal inspection, no calf tenderness, no swelling Neurologic: associate media director II-XII grossly normal, no motor/sensory deficits Intake and Output 01/04/19 01/05/19 19:00 07:00 Intake Total 630 ml 1035 ml Output Total 500 ml 1400 ml Balance 130 ml -365 ml Intake Oral 630 ml 60 ml IV Total 975 ml Output Urine Total 500 ml 1400 ml # Bowel Movements 1 1 Laboratory Tests Test 01/05/19 04:08 White Blood Count 6.0 K/UL (4.8-10.8) Red Blood Count 4.07 M/UL (4.70-6.10) L Hemoglobin 12.6 G/DL (14.2-18.0) L Hematocrit 38.1 % (42.0-52.0) L Mean Corpuscular Volume 94 FL (80-99) Mean Corpuscular Hemoglobin 30.9 PG (27.0-31.0) Mean Corpuscular Hemoglobin Concent 32.9 G/DL (32.0-36.0) Red Cell Distribution Width 13.3 % (11.6-14.8) Platelet Count 227 K/UL (150-450) Mean Platelet Volume 5.6 FL (6.5-10.1) L Neutrophils (%) (Auto) 56.0 % (45.0-75.0) Lymphocytes (%) (Auto) 24.2 % (20.0-45.0) Monocytes (%) (Auto) 9.8 % (1.0-10.0) Eosinophils (%) (Auto) 9.0 % (0.0-3.0) H Basophils (%) (Auto) 0.9 % (0.0-2.0) Prothrombin Time 11.8 SEC (9.30-11.50) H Prothromb Time International Ratio 1.1 (0.9-1.1) Activated Partial Thromboplast Time 32 SEC (23-33) Sodium Level 143 MMOL/L (136-145) Potassium Level 4.0 MMOL/L (3.5-5.1) Chloride Level 110 MMOL/L (98-107) H Carbon Dioxide Level 30 MMOL/L (21-32) Anion Gap 3 mmol/L (5-15) L Blood Urea Nitrogen 7 mg/dL (7-18) Creatinine 0.8 MG/DL (0.55-1.30) Estimat Glomerular Filtration Rate > 60 mL/min (>60) Glucose Level 99 MG/DL (74-106) Calcium Level 8.3 MG/DL (8.5-10.1) L Troponin I 0.162 ng/mL (0.000-0.056) Nakul Monaco MD Jan 05, 2019 09:38
[2019-01-05] MEDS ORDERED: DiphenhydrAMINE 50mg/ml Inj IVP PRN (09:45)
--- NOTE | 2019-01-05 11:01 | Pre-Procedure Note/Attestation ---
Pre-Procedure Note/Attestation Complete Prior to Procedure Planned Procedure: not applicable Procedure Narrative: egd Indications for Procedure Pre-Operative Diagnosis: gib Attestation I attest that I discussed the nature of the procedure; its benefits; risks and complications; and alternatives (and the risks and benefits of such alternatives ), prior to the procedure, with the patient (or the patient's legal public service representative). I attest that, if there was a reasonable possibility of needing a blood transfusion, the patient (or the patient's legal public service representative) was given the [facility] standardized written summary, pursuant to the Ayaan Reji Blood Safety Act ([place] Health and Safety Code # 1645, as amended). I attest that I re-evaluated the patient just prior to the surgery and that there has been no change in the patient's H&P, except as documented below: Bib Banegas MD Jan 05, 2019 11:01
--- NOTE | 2019-01-05 11:21 | General Progress Note ---
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 ICD Codes: I69.359 - Hemiplegia and hemiparesis following cerebral infarction affecting unspecified side SNOMED: 768637634 (3) History of CVA (cerebrovascular accident) ICD Codes: Z86.73 - Personal history of transient ischemic attack (TIA), and cerebral infarction without residual deficits SNOMED: 419189273 (4) Essential hypertension ICD Codes: I10 - Essential (primary) hypertension SNOMED: 28390990 (5) GI bleed ICD Codes: K92.2 - Gastrointestinal hemorrhage, unspecified SNOMED: 34009283 Status: stable Assessment/Plan: esophagogastroduodenoscopy was cancelled by anesthesia due to abnormal EKG fu labs ppi EGD when more stable Subjective ROS Limited/Unobtainable: Yes Allergies: Coded Allergies: No Known Allergies (Unverified , 12/29/18) Subjective black tarry stool Objective Last 24 Hour Vital Signs Date Time Temp Pulse Resp B/P (MAP) Pulse Ox O2 Delivery O2 Flow Rate FiO2 01/05/19 08:49 56 175/90 01/05/19 08:00 97.5 56 20 175/90 (118) 97 01/05/19 04:00 97.7 60 20 156/90 (112) 98 01/05/19 04:00 60 01/05/19 00:45 72 162/86 (111) 01/05/19 00:04 181/95 01/05/19 00:00 97.7 70 20 181/95 (123) 96 01/05/19 00:00 70 01/04/19 21:00 Room Air 01/04/19 21:00 68 148/70 (96) 01/04/19 20:13 80 169/72 01/04/19 20:00 91 01/04/19 20:00 97.7 91 18 169/72 (104) 96 01/04/19 16:00 97.0 79 20 147/104 (118) 94 01/04/19 15:09 79 01/04/19 12:00 97.9 65 20 87/47 (60) 94 01/04/19 11:59 65 Intake and Output 01/04/19 01/05/19 19:00 07:00 Intake Total 630 ml 1035 ml Output Total 500 ml 1400 ml Balance 130 ml -365 ml Intake Oral 630 ml 60 ml IV Total 975 ml Output Urine Total 500 ml 1400 ml # Bowel Movements 1 1 Laboratory Tests 01/05/19 04:08: White Blood Count 6.0, Red Blood Count 4.07L, Hemoglobin 12.6L, Hematocrit 38.1L , Mean Corpuscular Volume 94, Mean Corpuscular Hemoglobin 30.9, Mean Corpuscular Hemoglobin Concent 32.9, Red Cell Distribution Width 13.3, Platelet Count 227, Mean Platelet Volume 5.6L, Neutrophils (%) (Auto) 56.0, Lymphocytes ( %) (Auto) 24.2, Monocytes (%) (Auto) 9.8, Eosinophils (%) (Auto) 9.0H, Basophils (%) (Auto) 0.9, Prothrombin Time 11.8H, Prothromb Time International Ratio 1.1, Activated Partial Thromboplast Time 32, Sodium Level 143, Potassium Level 4.0, Chloride Level 110H, Carbon Dioxide Level 30, Anion Gap 3L, Blood Urea Nitrogen 7, Creatinine 0.8, Estimat Glomerular Filtration Rate > 60, Glucose Level 99, Calcium Level 8.3L, Troponin I 0.162H Height (Feet): 5 Height (Inches): 5.00 Weight (Pounds): 152 General Appearance: alert EENT: normal ENT inspection Neck: supple Cardiovascular: normal rate Respiratory/Chest: decreased breath sounds Abdomen: normal bowel sounds, non tender, soft Extremities: non-tender Bib Banegas MD Jan 05, 2019 11:21
--- NOTE | 2019-01-05 11:35 | Pulmonology Progress Note ---
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 Assessment/Plan h/h stable iv fluids check electrolytes watch BP f/u cardiology recommendations Subjective ROS Limited/Unobtainable: No Interval Events: late note for 01/04 Constitutional: Reports: no symptoms HEENT: Repors: no symptoms Allergies: Coded Allergies: No Known Allergies (Unverified , 12/29/18) Objective Last 24 Hour Vital Signs Date Time Temp Pulse Resp B/P (MAP) Pulse Ox O2 Delivery O2 Flow Rate FiO2 01/05/19 08:49 56 175/90 01/05/19 08:00 97.5 56 20 175/90 (118) 97 01/05/19 04:00 97.7 60 20 156/90 (112) 98 01/05/19 04:00 60 01/05/19 00:45 72 162/86 (111) 01/05/19 00:04 181/95 01/05/19 00:00 97.7 70 20 181/95 (123) 96 01/05/19 00:00 70 01/04/19 21:00 Room Air 01/04/19 21:00 68 148/70 (96) 01/04/19 20:13 80 169/72 01/04/19 20:00 91 01/04/19 20:00 97.7 91 18 169/72 (104) 96 01/04/19 16:00 97.0 79 20 147/104 (118) 94 01/04/19 15:09 79 01/04/19 12:00 97.9 65 20 87/47 (60) 94 01/04/19 11:59 65 Intake and Output 01/04/19 01/05/19 19:00 07:00 Intake Total 630 ml 1035 ml Output Total 500 ml 1400 ml Balance 130 ml -365 ml Intake Oral 630 ml 60 ml IV Total 975 ml Output Urine Total 500 ml 1400 ml # Bowel Movements 1 1 General Appearance: WD/WN HEENT: normocephalic, atraumatic Respiratory/Chest: chest wall non-tender, lungs clear Cardiovascular: normal peripheral pulses, normal rate, no JVD Abdomen: soft, non tender, no scars Extremities: no cyanosis Skin: no lesions Laboratory Tests 01/05/19 04:08: White Blood Count 6.0, Red Blood Count 4.07L, Hemoglobin 12.6L, Hematocrit 38.1L , Mean Corpuscular Volume 94, Mean Corpuscular Hemoglobin 30.9, Mean Corpuscular Hemoglobin Concent 32.9, Red Cell Distribution Width 13.3, Platelet Count 227, Mean Platelet Volume 5.6L, Neutrophils (%) (Auto) 56.0, Lymphocytes ( %) (Auto) 24.2, Monocytes (%) (Auto) 9.8, Eosinophils (%) (Auto) 9.0H, Basophils (%) (Auto) 0.9, Prothrombin Time 11.8H, Prothromb Time International Ratio 1.1, Activated Partial Thromboplast Time 32, Sodium Level 143, Potassium Level 4.0, Chloride Level 110H, Carbon Dioxide Level 30, Anion Gap 3L, Blood Urea Nitrogen 7, Creatinine 0.8, Estimat Glomerular Filtration Rate > 60, Glucose Level 99, Calcium Level 8.3L, Troponin I 0.162H Current Medications Medications (Trade) Dose Ordered Sig/Barby Route PRN Reason Start Time Stop Time Status Last Admin Dose Admin Acetaminophen (Tylenol) 650 mg Q4H PRN ORAL T>100.5 01/02/19 08:00 01/29/19 07:59 Acetaminophen (Tylenol) 650 mg Q4H PRN ORAL Mild Pain (Pain Scale 1-3) 01/05/19 09:45 01/05/19 17:00 Atorvastatin Calcium (Lipitor) 20 mg BEDTIME ORAL 01/02/19 21:00 01/30/19 20:59 01/04/19 20:13 Clonidine HCl (Catapres Tab) 0.1 mg Q8H PRN ORAL SBP>160mmHg 01/02/19 07:30 01/29/19 07:29 01/05/19 00:04 Dextrose (Dextrose 50%) 25 ml Q30M PRN IV Hypoglycemia 01/02/19 07:30 01/29/19 00:59 Dextrose (Dextrose 50%) 50 ml Q30M PRN IV Hypoglycemia 01/02/19 07:30 01/29/19 00:59 Dextrose/Sodium Chloride 1,000 ml @ 100 mls/hr Q10H IV 01/02/19 08:00 01/29/19 07:59 01/05/19 06:11 Diphenhydramine HCl (Benadryl) 25 mg Q15M PRN IVP Itching 01/05/19 09:45 01/05/19 17:00 Diphenhydramine HCl (Benadryl) 25 mg Q6H PRN ORAL Itching/Pruritis 01/02/19 07:30 01/29/19 07:29 01/03/19 23:14 Hydralazine HCl (Apresoline) 5 mg Q30M PRN IV SBP>160 OR___/DBP>90 OR___ 01/05/19 09:45 01/05/19 17:00 Lactated Ringer's 1,000 ml @ 10 mls/hr Q24H IVLG 01/05/19 09:32 01/05/19 11:31 Lansoprazole (Prevacid) 30 mg BIAC ORAL 01/04/19 20:00 02/03/19 19:59 01/05/19 06:13 Metoprolol Tartrate (Lopressor) 50 mg Q12HR ORAL 01/02/19 09:00 01/30/19 20:59 01/05/19 08:49 Morphine Sulfate (Morphine Sulfate) 2 mg Q4H PRN IVP Severe Pain (Pain Scale 7-10) 01/02/19 08:00 01/06/19 07:59 Nitroglycerin (Ntg) 0.4 mg Q5M X 3 DOSES PRN SL Prn Chest Pain 01/02/19 07:15 01/29/19 00:59 Ondansetron HCl (Zofran) 4 mg Q1H PRN IVP Nausea & Vomiting 01/05/19 09:45 01/05/19 17:00 Ondansetron HCl (Zofran) 4 mg Q6H PRN IVP Nausea & Vomiting 01/02/19 08:00 01/29/19 07:59 Polyethylene Glycol (Miralax) 17 gm HSPRN PRN ORAL Constipation 01/02/19 21:00 02/01/19 20:59 Temazepam (Restoril) 15 mg HSPRN PRN ORAL Insomnia 01/02/19 21:00 01/09/19 20:59 01/03/19 23:14 Joy Huertas MD Jan 05, 2019 11:35
--- NOTE | 2019-01-05 12:23 | Internal Med Progress Note ---
Subjective Date of Service: Jan 05, 2019 Physician Name Chandler,Nicholas Attending Physician Ted Dunn MD Current Medications Medications (Trade) Dose Ordered Sig/Barby Route PRN Reason Start Time Stop Time Status Last Admin Dose Admin Acetaminophen (Tylenol) 650 mg Q4H PRN ORAL T>100.5 01/02/19 08:00 01/29/19 07:59 Acetaminophen (Tylenol) 650 mg Q4H PRN ORAL Mild Pain (Pain Scale 1-3) 01/05/19 09:45 01/05/19 17:00 Atorvastatin Calcium (Lipitor) 20 mg BEDTIME ORAL 01/02/19 21:00 01/30/19 20:59 01/04/19 20:13 Clonidine HCl (Catapres Tab) 0.1 mg Q8H PRN ORAL SBP>160mmHg 01/02/19 07:30 01/29/19 07:29 01/05/19 00:04 Dextrose (Dextrose 50%) 25 ml Q30M PRN IV Hypoglycemia 01/02/19 07:30 01/29/19 00:59 Dextrose (Dextrose 50%) 50 ml Q30M PRN IV Hypoglycemia 01/02/19 07:30 01/29/19 00:59 Dextrose/Sodium Chloride 1,000 ml @ 100 mls/hr Q10H IV 01/02/19 08:00 01/29/19 07:59 01/05/19 06:11 Diphenhydramine HCl (Benadryl) 25 mg Q15M PRN IVP Itching 01/05/19 09:45 01/05/19 17:00 Diphenhydramine HCl (Benadryl) 25 mg Q6H PRN ORAL Itching/Pruritis 01/02/19 07:30 01/29/19 07:29 01/03/19 23:14 Hydralazine HCl (Apresoline) 5 mg Q30M PRN IV SBP>160 OR___/DBP>90 OR___ 01/05/19 09:45 01/05/19 17:00 Lansoprazole (Prevacid) 30 mg BIAC ORAL 01/04/19 20:00 02/03/19 19:59 01/05/19 06:13 Metoprolol Tartrate (Lopressor) 50 mg Q12HR ORAL 01/02/19 09:00 01/30/19 20:59 01/05/19 08:49 Morphine Sulfate (Morphine Sulfate) 2 mg Q4H PRN IVP Severe Pain (Pain Scale 7-10) 01/02/19 08:00 01/06/19 07:59 Nitroglycerin (Ntg) 0.4 mg Q5M X 3 DOSES PRN SL Prn Chest Pain 01/02/19 07:15 01/29/19 00:59 Ondansetron HCl (Zofran) 4 mg Q1H PRN IVP Nausea & Vomiting 01/05/19 09:45 01/05/19 17:00 Ondansetron HCl (Zofran) 4 mg Q6H PRN IVP Nausea & Vomiting 01/02/19 08:00 01/29/19 07:59 Polyethylene Glycol (Miralax) 17 gm HSPRN PRN ORAL Constipation 01/02/19 21:00 02/01/19 20:59 Temazepam (Restoril) 15 mg HSPRN PRN ORAL Insomnia 01/02/19 21:00 01/09/19 20:59 01/03/19 23:14 Allergies: Coded Allergies: No Known Allergies (Unverified , 12/29/18) ROS Limited/Unobtainable: No Constitutional: Reports: no symptoms HEENT: Reports: no symptoms Cardiovascular: Reports: no symptoms Respiratory: Reports: no symptoms Gastrointestinal/Abdominal: Reports: no symptoms Genitourinary: Reports: no symptoms Neurologic/Psychiatric: Reports: no symptoms Subjective 68 YO M admitted with Gastrointestinal hemorrhage. Now elevated troponin. Cover for Int Yobani-DR Dunn Objective Last Vital Signs Date Time Temp Pulse Resp B/P (MAP) Pulse Ox O2 Delivery O2 Flow Rate FiO2 01/05/19 08:49 56 175/90 01/05/19 08:00 97.5 20 97 01/04/19 21:00 Room Air 12/29/18 23:23 97 Laboratory Tests Test 01/05/19 04:08 White Blood Count 6.0 K/UL (4.8-10.8) Red Blood Count 4.07 M/UL (4.70-6.10) L Hemoglobin 12.6 G/DL (14.2-18.0) L Hematocrit 38.1 % (42.0-52.0) L Mean Corpuscular Volume 94 FL (80-99) Mean Corpuscular Hemoglobin 30.9 PG (27.0-31.0) Mean Corpuscular Hemoglobin Concent 32.9 G/DL (32.0-36.0) Red Cell Distribution Width 13.3 % (11.6-14.8) Platelet Count 227 K/UL (150-450) Mean Platelet Volume 5.6 FL (6.5-10.1) L Neutrophils (%) (Auto) 56.0 % (45.0-75.0) Lymphocytes (%) (Auto) 24.2 % (20.0-45.0) Monocytes (%) (Auto) 9.8 % (1.0-10.0) Eosinophils (%) (Auto) 9.0 % (0.0-3.0) H Basophils (%) (Auto) 0.9 % (0.0-2.0) Prothrombin Time 11.8 SEC (9.30-11.50) H Prothromb Time International Ratio 1.1 (0.9-1.1) Activated Partial Thromboplast Time 32 SEC (23-33) Sodium Level 143 MMOL/L (136-145) Potassium Level 4.0 MMOL/L (3.5-5.1) Chloride Level 110 MMOL/L (98-107) H Carbon Dioxide Level 30 MMOL/L (21-32) Anion Gap 3 mmol/L (5-15) L Blood Urea Nitrogen 7 mg/dL (7-18) Creatinine 0.8 MG/DL (0.55-1.30) Estimat Glomerular Filtration Rate > 60 mL/min (>60) Glucose Level 99 MG/DL (74-106) Calcium Level 8.3 MG/DL (8.5-10.1) L Troponin I 0.162 ng/mL (0.000-0.056) Intake and Output 01/04/19 01/05/19 19:00 07:00 Intake Total 630 ml 1035 ml Output Total 500 ml 1400 ml Balance 130 ml -365 ml Intake Oral 630 ml 60 ml IV Total 975 ml Output Urine Total 500 ml 1400 ml # Bowel Movements 1 1 Objective PHYSICAL EXAMINATION: GENERALLY: The patient is a well-developed and well-nourished female, in no apparent distress. HEENT: Eyes, pupils are equal and responsive to light and accommodation. Extraocular movements are intact. NECK: Supple without lymphadenopathy. CHEST: Lungs are clear to auscultation bilaterally without wheezes or rales. CARDIOVASCULAR: Regular rhythm and rate. S1 and S2 are normal without murmurs, rubs, or gallops. ABDOMEN: Soft, nontender, and nondistended. Positive bowel sounds. No evidence of hepatosplenomegaly. Currently, no rebound or guarding noted. EXTREMITIES: Negative for clubbing, cyanosis, or edema. RECTAL/GENITAL: Not performed. NEUROLOGIC: Cranial nerves II through XII are grossly intact. Assessment/Plan Assessment/Plan ASSESSMENT: This is a 68-year-old male. 1. Gastrointestinal hemorrhage. 2. Hypertension. 3. Hypercholesterolemia. 4. Cerebrovascular disease. 5. Hemiplegia. 6. Aphasia. 7. Elevated troponin. TREATMENT: 1. Gastrointestinal hemorrhage. A Gastroenterology consultation has been obtained with Dr. Bib Banegas. Possible endoscopy when cleared by Cardiology 2. Hypertension. Continue enalapril and diltiazem as above. Continue metoprolol as above. 3. Hypercholesterolemia. Continue atorvastatin as above. 4. Cerebrovascular disease/hemiplegia/aphasia. Hold aspirin for now due to gastrointestinal hemorrhage. 5. Elevated troponin. A Cardiology consultation=Dr Aguilar. Nuclear stress test cancelled Thursday01/03/19 due to abnormal EKG Nicholas Chandler MD Jan 05, 2019 12:23
--- NOTE | 2019-01-05 15:56 | NUR ---
*-* INSURANCE *-* ALL CLINICALS AND REVIEWS HAVE BEEN FAXED TO: [facility] F: [phone]
--- NOTE | 2019-01-05 19:30 | NUR ---
NURSE NOTES: Received patient from Talya RN. Patient is awake and oriented x1. Patient is on room air, showing no signs of respiratory distress. Patient has a condom catheter that is intact and draining well. IV site is left wrist 22g receiving D5NS @100cc/hr. Bed is locked, placed in lowest position, side rails up x3, bed alarm on. Will continue to monitor.
--- NOTE | 2019-01-05 20:15 | NUR ---
HAND-OFF: Report given to Christel/REJI, patient is in stable condition. Endorsed plan of care.
[2019-01-05] MEDS: Atorvastatin 20mg tab ORAL SCH (20:45)
[2019-01-06] VITALS: BP 142/87
[2019-01-06] MEDS: D5NS 1,000 ML IV SCH ×3 (02:00→22:39)
[2019-01-06 04:00] VITALS: BP 154/90
[2019-01-06 06:46] LABS: ANION GAP 6 mmol/L (5-15); BLOOD UREA NITROGEN 5 mg/dL (7-18); CALCIUM 8.3 MG/DL (8.5-10.1); CARBON DIOXIDE 25 MMOL/L (21-32); CHLORIDE 110 MMOL/L (98-107); CREATININE 0.9 MG/DL (0.55-1.30); POTASSIUM 3.7 MMOL/L (3.5-5.1); SODIUM 141 MMOL/L (136-145)
[2019-01-06 07:23] LABS: BASOPHILS % (AUTO) 0.9 % (0.0-2.0); EOSINOPHILS % (AUTO) 8.4 % (0.0-3.0); HEMOGLOBIN 12.9 G/DL (14.2-18.0); LYMPHOCYTES % (AUTO) 25.3 % (20.0-45.0); MEAN CORPUSCULAR VOLUME 95 FL (80-99); MONOCYTES % (AUTO) 12.3 % (1.0-10.0); PLATELET COUNT 229 K/UL (150-450); RED BLOOD COUNT 4.23 M/UL (4.70-6.10); RED CELL DISTRIBUTION WIDTH 13.2 % (11.6-14.8); WHITE BLOOD COUNT 6.3 K/UL (4.8-10.8)
--- NOTE | 2019-01-06 07:26 | NUR ---
HAND-OFF: Report given to Talya MENDOZA.
--- NOTE | 2019-01-06 07:27 | NUR ---
NURSE NOTES: Received report from Christel/RN, Patient is awake, lying semi-barlow, resting comfortably, No sign of distress/SOB noted. A&O x1, non verbal. IV site patent, no bleeding or infiltration noted. Patient has condom cath, draining to well to gravity. Bed in low position and locked, side rails up x3, Call light and personal belonging within reach. Will continue plan of care.
[2019-01-06 08:00] VITALS: BP 167/98
[2019-01-06] MEDS: Metoprolol Tartrate 50mg tab ORAL SCH ×2 (09:44→21:15)
--- NOTE | 2019-01-06 09:46 | GI Progress Note ---
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 ICD Codes: I69.359 - Hemiplegia and hemiparesis following cerebral infarction affecting unspecified side SNOMED: 244649652 (3) History of CVA (cerebrovascular accident) ICD Codes: Z86.73 - Personal history of transient ischemic attack (TIA), and cerebral infarction without residual deficits SNOMED: 893370990 (4) Essential hypertension ICD Codes: I10 - Essential (primary) hypertension SNOMED: 41715628 (5) GI bleed ICD Codes: K92.2 - Gastrointestinal hemorrhage, unspecified SNOMED: 94869356 (6) Elevated troponin ICD Codes: R74.8 - Abnormal levels of other serum enzymes SNOMED: 913011981, 870144017, 701542064 Status: unchanged Status Narrative Discussed with Dr. Banegas. Assessment/Plan esophagogastroduodenoscopy was cancelled by anesthesia due to abnormal EKG fu labs ppi prn transfusions EGD when more stable The patient was seen and examined at bedside and all new and available data was reviewed in the patients chart. I agree with the above findings, impression and plan. (Patient seen earlier today. Signature stamp does not reflect patient encounter time.). - Bib Banegas MD Subjective Subjective limited Objective Last 24 Hour Vital Signs Date Time Temp Pulse Resp B/P (MAP) Pulse Ox O2 Delivery O2 Flow Rate FiO2 01/06/19 09:44 65 167/98 01/06/19 09:44 167/98 01/06/19 04:00 97.9 58 18 154/90 (111) 99 01/06/19 03:30 56 01/06/19 00:00 97.5 65 18 142/87 (105) 96 01/05/19 22:00 65 01/05/19 21:00 Room Air 01/05/19 20:45 76 117/70 01/05/19 20:00 97.9 76 18 117/70 (86) 95 01/05/19 19:23 69 01/05/19 17:52 176/99 01/05/19 16:00 61 01/05/19 16:00 98.0 59 20 176/99 (124) 95 01/05/19 12:00 56 01/05/19 12:00 97.2 58 18 173/97 (122) 98 Intake and Output 01/05/19 01/06/19 19:00 07:00 Intake Total 120 ml 0 ml Output Total 700 ml Balance -580 ml 0 ml Intake Oral 120 ml 0 ml Output Urine Total 700 ml # Voids 1 Laboratory Tests Test 01/06/19 06:15 White Blood Count 6.3 K/UL (4.8-10.8) Red Blood Count 4.23 M/UL (4.70-6.10) L Hemoglobin 12.9 G/DL (14.2-18.0) L Hematocrit 40.0 % (42.0-52.0) L Mean Corpuscular Volume 95 FL (80-99) Mean Corpuscular Hemoglobin 30.6 PG (27.0-31.0) Mean Corpuscular Hemoglobin Concent 32.3 G/DL (32.0-36.0) Red Cell Distribution Width 13.2 % (11.6-14.8) Platelet Count 229 K/UL (150-450) Mean Platelet Volume 4.9 FL (6.5-10.1) L Neutrophils (%) (Auto) 53.0 % (45.0-75.0) Lymphocytes (%) (Auto) 25.3 % (20.0-45.0) Monocytes (%) (Auto) 12.3 % (1.0-10.0) H Eosinophils (%) (Auto) 8.4 % (0.0-3.0) H Basophils (%) (Auto) 0.9 % (0.0-2.0) Sodium Level 141 MMOL/L (136-145) Potassium Level 3.7 MMOL/L (3.5-5.1) Chloride Level 110 MMOL/L (98-107) H Carbon Dioxide Level 25 MMOL/L (21-32) Anion Gap 6 mmol/L (5-15) Blood Urea Nitrogen 5 mg/dL (7-18) L Creatinine 0.9 MG/DL (0.55-1.30) Estimat Glomerular Filtration Rate > 60 mL/min (>60) Glucose Level 99 MG/DL (74-106) Calcium Level 8.3 MG/DL (8.5-10.1) L Height (Feet): 5 Height (Inches): 5.00 Weight (Pounds): 152 General Appearance: WD/WN, no apparent distress, alert Cardiovascular: normal rate Respiratory/Chest: normal breath sounds, no respiratory distress Abdominal Exam: normal bowel sounds, non tender, soft Extremities: non-tender Heather Gonzalez NP Jan 06, 2019 09:46
--- NOTE | 2019-01-06 09:55 | Cardiology Progress Note ---
Assessment/Plan Status: stable Assessment/Plan Assessment/Plan Assessment/Plan 1. Troponin elevation. The levels are flat 0.13, 0.14, 0.14. The patient denies any CP or SOB. His 12-lead EKG showed sinus rhythm with left ventricular hypertrophy with nonspecific ST-T wave abnormality. Continue beta anderson and statin Restart aspirin when cleared by GI Nuclear stress test cancelled by Dr Santana for AMS Ok to do as outpatient when stable Ok to proceed with EGD as needed 2. Hypertension. On metoprolol 50 mg bid. 3. GI bleed. The patient's hemoglobin is stable at around 14. per GI Dispo planning per primary Subjective Cardiovascular: Reports: no symptoms Respiratory: Reports: no symptoms Gastrointestinal/Abdominal: Reports: no symptoms Genitourinary: Reports: no symptoms Subjective Coverage for [place] no acute events, no chest pain, vitals stable, no distress, nursing notes reviewed Objective Last 24 Hour Vital Signs Date Time Temp Pulse Resp B/P (MAP) Pulse Ox O2 Delivery O2 Flow Rate FiO2 01/06/19 09:44 65 167/98 01/06/19 09:44 167/98 01/06/19 04:00 97.9 58 18 154/90 (111) 99 01/06/19 03:30 56 01/06/19 00:00 97.5 65 18 142/87 (105) 96 01/05/19 22:00 65 01/05/19 21:00 Room Air 01/05/19 20:45 76 117/70 01/05/19 20:00 97.9 76 18 117/70 (86) 95 01/05/19 19:23 69 01/05/19 17:52 176/99 01/05/19 16:00 61 01/05/19 16:00 98.0 59 20 176/99 (124) 95 01/05/19 12:00 56 01/05/19 12:00 97.2 58 18 173/97 (122) 98 General Appearance: no apparent distress, alert EENT: PERRL/EOMI, normal ENT inspection, TMs normal, pharynx normal Neck: non-tender, normal alignment, supple, normal inspection, no JVD Rhythm: NSR Cardiovascular: normal peripheral pulses, normal rate, regular rhythm Respiratory/Chest: chest wall non-tender, lungs clear, normal breath sounds, no respiratory distress, no accessory muscle use Abdomen: normal bowel sounds, soft, abnormal bowel sounds Extremities: normal range of motion, non-tender, no calf tenderness Neurologic: brand leader II-XII grossly normal, no motor/sensory deficits Intake and Output 01/05/19 01/06/19 19:00 07:00 Intake Total 120 ml 0 ml Output Total 700 ml Balance -580 ml 0 ml Intake Oral 120 ml 0 ml Output Urine Total 700 ml # Voids 1 Laboratory Tests Test 01/06/19 06:15 White Blood Count 6.3 K/UL (4.8-10.8) Red Blood Count 4.23 M/UL (4.70-6.10) L Hemoglobin 12.9 G/DL (14.2-18.0) L Hematocrit 40.0 % (42.0-52.0) L Mean Corpuscular Volume 95 FL (80-99) Mean Corpuscular Hemoglobin 30.6 PG (27.0-31.0) Mean Corpuscular Hemoglobin Concent 32.3 G/DL (32.0-36.0) Red Cell Distribution Width 13.2 % (11.6-14.8) Platelet Count 229 K/UL (150-450) Mean Platelet Volume 4.9 FL (6.5-10.1) L Neutrophils (%) (Auto) 53.0 % (45.0-75.0) Lymphocytes (%) (Auto) 25.3 % (20.0-45.0) Monocytes (%) (Auto) 12.3 % (1.0-10.0) H Eosinophils (%) (Auto) 8.4 % (0.0-3.0) H Basophils (%) (Auto) 0.9 % (0.0-2.0) Sodium Level 141 MMOL/L (136-145) Potassium Level 3.7 MMOL/L (3.5-5.1) Chloride Level 110 MMOL/L (98-107) H Carbon Dioxide Level 25 MMOL/L (21-32) Anion Gap 6 mmol/L (5-15) Blood Urea Nitrogen 5 mg/dL (7-18) L Creatinine 0.9 MG/DL (0.55-1.30) Estimat Glomerular Filtration Rate > 60 mL/min (>60) Glucose Level 99 MG/DL (74-106) Calcium Level 8.3 MG/DL (8.5-10.1) L Nakul Monaco MD Jan 06, 2019 09:55
--- NOTE | 2019-01-06 11:24 | Pulmonology Progress Note ---
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 Assessment/Plan h/h stable EGD done yesterday iv fluids check electrolytes watch BP f/u cardiology recommendations Subjective ROS Limited/Unobtainable: No Constitutional: Reports: no symptoms Respiratory: Reports: no symptoms Allergies: Coded Allergies: No Known Allergies (Unverified , 12/29/18) Objective Last 24 Hour Vital Signs Date Time Temp Pulse Resp B/P (MAP) Pulse Ox O2 Delivery O2 Flow Rate FiO2 01/06/19 09:44 65 167/98 01/06/19 09:44 167/98 01/06/19 08:00 97.5 65 18 167/98 (121) 95 01/06/19 08:00 71 01/06/19 04:00 97.9 58 18 154/90 (111) 99 01/06/19 03:30 56 01/06/19 00:00 97.5 65 18 142/87 (105) 96 01/05/19 22:00 65 01/05/19 21:00 Room Air 01/05/19 20:45 76 117/70 01/05/19 20:00 97.9 76 18 117/70 (86) 95 01/05/19 19:23 69 01/05/19 17:52 176/99 01/05/19 16:00 61 01/05/19 16:00 98.0 59 20 176/99 (124) 95 01/05/19 12:00 56 01/05/19 12:00 97.2 58 18 173/97 (122) 98 Intake and Output 01/05/19 01/06/19 19:00 07:00 Intake Total 120 ml 0 ml Output Total 700 ml Balance -580 ml 0 ml Intake Oral 120 ml 0 ml Output Urine Total 700 ml # Voids 1 General Appearance: WD/WN HEENT: mucous membranes moist Respiratory/Chest: chest wall non-tender, lungs clear Cardiovascular: normal peripheral pulses, normal rate Abdomen: normal bowel sounds, soft, non tender 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 normal Lymphatic: no neck adenopathy Laboratory Tests 01/06/19 06:15: White Blood Count 6.3, Red Blood Count 4.23L, Hemoglobin 12.9L, Hematocrit 40.0L , Mean Corpuscular Volume 95, Mean Corpuscular Hemoglobin 30.6, Mean Corpuscular Hemoglobin Concent 32.3, Red Cell Distribution Width 13.2, Platelet Count 229, Mean Platelet Volume 4.9L, Neutrophils (%) (Auto) 53.0, Lymphocytes ( %) (Auto) 25.3, Monocytes (%) (Auto) 12.3H, Eosinophils (%) (Auto) 8.4H, Basophils (%) (Auto) 0.9, Sodium Level 141, Potassium Level 3.7, Chloride Level 110H, Carbon Dioxide Level 25, Anion Gap 6, Blood Urea Nitrogen 5L, Creatinine 0.9, Estimat Glomerular Filtration Rate > 60, Glucose Level 99, Calcium Level 8.3L Current Medications Medications (Trade) Dose Ordered Sig/Barby Route PRN Reason Start Time Stop Time Status Last Admin Dose Admin Acetaminophen (Tylenol) 650 mg Q4H PRN ORAL T>100.5 01/02/19 08:00 01/29/19 07:59 Atorvastatin Calcium (Lipitor) 20 mg BEDTIME ORAL 01/02/19 21:00 01/30/19 20:59 01/05/19 20:45 Clonidine HCl (Catapres Tab) 0.1 mg Q8H PRN ORAL SBP>160mmHg 01/02/19 07:30 01/29/19 07:29 01/06/19 09:44 Dextrose (Dextrose 50%) 25 ml Q30M PRN IV Hypoglycemia 01/02/19 07:30 01/29/19 00:59 Dextrose (Dextrose 50%) 50 ml Q30M PRN IV Hypoglycemia 01/02/19 07:30 01/29/19 00:59 Dextrose/Sodium Chloride 1,000 ml @ 100 mls/hr Q10H IV 01/02/19 08:00 01/29/19 07:59 01/06/19 02:00 Diphenhydramine HCl (Benadryl) 25 mg Q6H PRN ORAL Itching/Pruritis 01/02/19 07:30 01/29/19 07:29 01/03/19 23:14 Lansoprazole (Prevacid) 30 mg BIAC ORAL 01/04/19 20:00 02/03/19 19:59 01/06/19 06:20 Metoprolol Tartrate (Lopressor) 50 mg Q12HR ORAL 01/02/19 09:00 01/30/19 20:59 01/06/19 09:44 Nitroglycerin (Ntg) 0.4 mg Q5M X 3 DOSES PRN SL Prn Chest Pain 01/02/19 07:15 01/29/19 00:59 Ondansetron HCl (Zofran) 4 mg Q6H PRN IVP Nausea & Vomiting 01/02/19 08:00 01/29/19 07:59 Polyethylene Glycol (Miralax) 17 gm HSPRN PRN ORAL Constipation 01/02/19 21:00 02/01/19 20:59 Temazepam (Restoril) 15 mg HSPRN PRN ORAL Insomnia 01/02/19 21:00 01/09/19 20:59 01/03/19 23:14 Joy Huertas MD Jan 06, 2019 11:24
[2019-01-06 12:00] VITALS: BP 153/84
--- NOTE | 2019-01-06 14:09 | NUR ---
SWALLOW/SPEECH THERAPY NOTE: SWALLOW STATUS: PATIENT IS NOT ALERT ENOUGH FOR PO TRIALS. GOALS MET FOR STAFF EDUCATED/TRAINED IN ASP PREC ON CURRENT DIET/LIQUIDS PER RNJAH, NO OVERT S/S OF ASPIRATION. UNABLE TO COMPLETE MOD BARIUM SWALLOW DUE TO SCHEDULE CONFLICTS. PLAN: CONTINUE WITH CURRENT DIET/LIQ WITH POSTED ASPIRATION PRECAUTIONS COMPLETE MOD BARIUM SWALLOW STUDY TOMORROW IF POSSIBLE. D/W RN JAH
--- NOTE | 2019-01-06 15:57 | NUR ---
CLINICAL PHARMACY SPECIALISTSUPERVISOR ADVICE SI: HYPERTENSION, GI BLEED T. 97.9 HR 58 RR 18 B/P 154/90 RA SAT 99% WBC 4.236 HGB 12.9 MPV 4.9 MONO% 12.3 EOS%8.4 CHLORIDE 110 BUN 50 CALCIUM 8.3 IS: PREVACID ORAL LIPITOR ORAL LOPRESSOR ORAL D5NS IV TELEMETRY STATUS
[2019-01-06 16:00] VITALS: BP 157/99
--- NOTE | 2019-01-06 16:30 | NUR ---
*-* INSURANCE *-* ALL CLINICALS AND REVIEWS HAVE BEEN FAXED TO: [facility] F: [phone]
--- NOTE | 2019-01-06 19:59 | NUR ---
NURSE NOTES: Receivedf pt from Rosamaria Babin. Pt is awake and resting in bed. IV site intact and patent. Bed locked, call light within reach. Will continue with plan of care.
[2019-01-06 20:00] VITALS: BP 159/110
--- NOTE | 2019-01-06 20:14 | NUR ---
HAND-OFF: Report given to Gary/RN, Patient is in stable condition. Endorsed plan of care.
[2019-01-06] MEDS: Atorvastatin 20mg tab ORAL SCH (21:14)
--- NOTE | 2019-01-06 22:58 | Internal Med Progress Note ---
Subjective Physician Name Ted Dunn Attending Physician Ted Dunn MD Current Medications Medications (Trade) Dose Ordered Sig/Barby Route PRN Reason Start Time Stop Time Status Last Admin Dose Admin Acetaminophen (Tylenol) 650 mg Q4H PRN ORAL T>100.5 01/02/19 08:00 01/29/19 07:59 Atorvastatin Calcium (Lipitor) 20 mg BEDTIME ORAL 01/02/19 21:00 01/30/19 20:59 01/06/19 21:14 Clonidine HCl (Catapres Tab) 0.1 mg Q8H PRN ORAL SBP>160mmHg 01/02/19 07:30 01/29/19 07:29 01/06/19 09:44 Dextrose (Dextrose 50%) 25 ml Q30M PRN IV Hypoglycemia 01/02/19 07:30 01/29/19 00:59 Dextrose (Dextrose 50%) 50 ml Q30M PRN IV Hypoglycemia 01/02/19 07:30 01/29/19 00:59 Dextrose/Sodium Chloride 1,000 ml @ 100 mls/hr Q10H IV 01/02/19 08:00 01/29/19 07:59 01/06/19 22:39 Diphenhydramine HCl (Benadryl) 25 mg Q6H PRN ORAL Itching/Pruritis 01/02/19 07:30 01/29/19 07:29 01/03/19 23:14 Lansoprazole (Prevacid) 30 mg BIAC ORAL 01/04/19 20:00 02/03/19 19:59 01/06/19 17:15 Metoprolol Tartrate (Lopressor) 50 mg Q12HR ORAL 01/02/19 09:00 01/30/19 20:59 01/06/19 21:15 Nitroglycerin (Ntg) 0.4 mg Q5M X 3 DOSES PRN SL Prn Chest Pain 01/02/19 07:15 01/29/19 00:59 Ondansetron HCl (Zofran) 4 mg Q6H PRN IVP Nausea & Vomiting 01/02/19 08:00 01/29/19 07:59 Polyethylene Glycol (Miralax) 17 gm HSPRN PRN ORAL Constipation 01/02/19 21:00 02/01/19 20:59 Temazepam (Restoril) 15 mg HSPRN PRN ORAL Insomnia 01/02/19 21:00 01/09/19 20:59 01/03/19 23:14 Allergies: Coded Allergies: No Known Allergies (Unverified , 12/29/18) Subjective open eye , not verbal , awake, responsive, NAD, Hgb: 12.9. Objective Last Vital Signs Date Time Temp Pulse Resp B/P (MAP) Pulse Ox O2 Delivery O2 Flow Rate FiO2 01/06/19 21:15 67 163/118 01/06/19 16:00 97.0 18 97 01/05/19 21:00 Room Air 12/29/18 23:23 97 Laboratory Tests Test 01/06/19 06:15 White Blood Count 6.3 K/UL (4.8-10.8) Red Blood Count 4.23 M/UL (4.70-6.10) L Hemoglobin 12.9 G/DL (14.2-18.0) L Hematocrit 40.0 % (42.0-52.0) L Mean Corpuscular Volume 95 FL (80-99) Mean Corpuscular Hemoglobin 30.6 PG (27.0-31.0) Mean Corpuscular Hemoglobin Concent 32.3 G/DL (32.0-36.0) Red Cell Distribution Width 13.2 % (11.6-14.8) Platelet Count 229 K/UL (150-450) Mean Platelet Volume 4.9 FL (6.5-10.1) L Neutrophils (%) (Auto) 53.0 % (45.0-75.0) Lymphocytes (%) (Auto) 25.3 % (20.0-45.0) Monocytes (%) (Auto) 12.3 % (1.0-10.0) H Eosinophils (%) (Auto) 8.4 % (0.0-3.0) H Basophils (%) (Auto) 0.9 % (0.0-2.0) Sodium Level 141 MMOL/L (136-145) Potassium Level 3.7 MMOL/L (3.5-5.1) Chloride Level 110 MMOL/L (98-107) H Carbon Dioxide Level 25 MMOL/L (21-32) Anion Gap 6 mmol/L (5-15) Blood Urea Nitrogen 5 mg/dL (7-18) L Creatinine 0.9 MG/DL (0.55-1.30) Estimat Glomerular Filtration Rate > 60 mL/min (>60) Glucose Level 99 MG/DL (74-106) Calcium Level 8.3 MG/DL (8.5-10.1) L Intake and Output 01/05/19 01/06/19 19:00 07:00 Intake Total 120 ml 0 ml Output Total 700 ml Balance -580 ml 0 ml Intake Oral 120 ml 0 ml Output Urine Total 700 ml # Voids 1 Objective General: No acute distress, awake and responsive HEENT: NCAT, sclera anicteric, PERRL, EOMI, Neck: Supple, no significant jugular venous distention, Lungs: fair inspiratory effort, , decrease air at bases,no Wheeze or Rales. Heart: Regular rate and rhythm, normal S1/S2, no murmur. Abdomen: soft, nontender, nondistended. Normoactive bowel sounds, obesity, : Rodriguez cath. Extremities: No Cyanosis , clubbing or edema. Neuro: CN 2-12 intact, not verbal minimal extremities movement. Skin: warm, no rash. Assessment/Plan Assessment/Plan 1. Rectal bleeding / Gastrointestinal hemorrhage. 2. Hypertension. 3. Hypercholesterolemia. 4. Cerebrovascular disease. 5. Hemiplegia. 6. Aphasia. 7. Elevated troponin. TREATMENT: 1. Gastrointestinal hemorrhage. A Gastroenterology consultation has been obtained with Dr. Bib Banegas. We will follow recommendations of Gastroenterology. 2. Hypertension. Continue enalapril and diltiazem as above. Continue metoprolol as above. 3. Hypercholesterolemia. Continue atorvastatin as above. 4. Cerebrovascular disease/hemiplegia/aphasia. Hold aspirin for now due to gastrointestinal hemorrhage. 5. Elevated troponin. A Cardiology consultation with Dr. Aguilar. EGD was cancelled by anesthesia due to abnormal EKG Ted Dunn MD Jan 06, 2019 22:58
[2019-01-07] VITALS: BP 158/110
[2019-01-07 04:00] VITALS: BP 167/101
[2019-01-07 07:04] LABS: ANION GAP 4 mmol/L (5-15); BLOOD UREA NITROGEN 5 mg/dL (7-18); CALCIUM 8.6 MG/DL (8.5-10.1); CARBON DIOXIDE 27 MMOL/L (21-32); CHLORIDE 111 MMOL/L (98-107); CREATININE 0.9 MG/DL (0.55-1.30); POTASSIUM 3.4 MMOL/L (3.5-5.1); SODIUM 142 MMOL/L (136-145)
[2019-01-07 07:06] LABS: EOSINOPHILS % (AUTO) 6.6 % (0.0-3.0); HEMATOCRIT 38.7 % (42.0-52.0); HEMOGLOBIN 12.7 G/DL (14.2-18.0); LYMPHOCYTES % (AUTO) 21.1 % (20.0-45.0); MEAN CORPUSCULAR VOLUME 94 FL (80-99); MONOCYTES % (AUTO) 10.5 % (1.0-10.0); NEUTROPHILS % (AUTO) 60.8 % (45.0-75.0); PLATELET COUNT 237 K/UL (150-450); RED BLOOD COUNT 4.12 M/UL (4.70-6.10); WHITE BLOOD COUNT 6.1 K/UL (4.8-10.8)
--- NOTE | 2019-01-07 07:14 | NUR ---
HAND-OFF: Report given to Rosamaria Pop. Endorsed plan of care.
[2019-01-07 08:00] VITALS: BP 130/93
--- NOTE | 2019-01-07 08:11 | Pulmonology Progress Note ---
Assessment/Plan Assessment/Plan ASSESSMENT GI hemorrhage History of CVA with aphasia and hemiplegia Hypertension Elevated troponin Hyperlipidemia Dysphagia HypoK PLAN OF CARE tele serial troponin with minimal elevation, levels flat, no complaints of chest pain or SOB ECHO with pEF 60%, RVSP of 34 nuclear stress test incomplete; no perfusion abnormality on resting imaging beta blockage ASA on hold due to GI bleed statin continued BP management with BB and prn anti HTN Venous duplex BLE negative decrease IV rate to 75 and dc soon O2 HHN prn H&H remained stable EGD 01/05 canceled by anesthesiology due to abnormal EKG GI prophylaxis monitor H&H with goal to keep hemoglobin above 7 clinical leader cleared for EGD okay to do nuclear stress test as outpatient as per cardio replace K, swallow eval with + dysphagia, asp precautions, diet texture as per ST rec dysphagia management supportive care case discussed and evaluated by supervising physician Subjective Allergies: Coded Allergies: No Known Allergies (Unverified , 12/29/18) Subjective no chest pain, no SOB pulse ox stable on RA troponin minimally elevated K-3.4 BP elevated Objective Last 24 Hour Vital Signs Date Time Temp Pulse Resp B/P (MAP) Pulse Ox O2 Delivery O2 Flow Rate FiO2 01/07/19 04:52 167/101 01/07/19 04:00 63 01/07/19 04:00 97.6 63 20 167/101 (123) 98 01/07/19 00:00 67 01/07/19 00:00 97.7 67 20 158/110 (126) 96 01/06/19 21:15 67 163/118 01/06/19 21:00 Room Air 01/06/19 20:00 97.9 75 20 159/110 (126) 97 01/06/19 20:00 75 01/06/19 16:00 71 01/06/19 16:00 97.0 71 18 157/99 (118) 97 01/06/19 12:00 97.3 64 20 153/84 (107) 96 01/06/19 12:00 56 01/06/19 09:44 65 167/98 01/06/19 09:44 167/98 Intake and Output 01/06/19 01/07/19 18:59 06:59 Intake Total 240 ml Output Total 1200 ml Balance 240 ml -1200 ml Intake Oral 240 ml Output Urine Total 1200 ml # Voids 1 # Bowel Movements 1 General Appearance: no acute distress, other - awake, alert, aphasic AA male in NAD HEENT: normocephalic, atraumatic, anicteric, mucous membranes moist Respiratory/Chest: lungs clear, no respiratory distress, no accessory muscle use Cardiovascular: normal peripheral pulses, normal rate, regular rhythm - SR on tele Abdomen: normal bowel sounds, soft, non tender Extremities: no edema Neurologic/Psychiatric: alert, responsive, other - aphasic, hemiplegia Musculoskeletal: normal muscle bulk Laboratory Tests 01/07/19 06:30: White Blood Count 6.1, Red Blood Count 4.12L, Hemoglobin 12.7L, Hematocrit 38.7L , Mean Corpuscular Volume 94, Mean Corpuscular Hemoglobin 30.9, Mean Corpuscular Hemoglobin Concent 32.9, Red Cell Distribution Width 13.0, Platelet Count 237, Mean Platelet Volume 5.6L, Neutrophils (%) (Auto) 60.8, Lymphocytes ( %) (Auto) 21.1, Monocytes (%) (Auto) 10.5H, Eosinophils (%) (Auto) 6.6H, Basophils (%) (Auto) 1.0, Sodium Level 142, Potassium Level 3.4L, Chloride Level 111H, Carbon Dioxide Level 27, Anion Gap 4L, Blood Urea Nitrogen 5L, Creatinine 0.9, Estimat Glomerular Filtration Rate > 60, Glucose Level 96, Calcium Level 8.6 Current Medications Medications (Trade) Dose Ordered Sig/Barby Route PRN Reason Start Time Stop Time Status Last Admin Dose Admin Acetaminophen (Tylenol) 650 mg Q4H PRN ORAL T>100.5 01/02/19 08:00 01/29/19 07:59 Atorvastatin Calcium (Lipitor) 20 mg BEDTIME ORAL 01/02/19 21:00 01/30/19 20:59 01/06/19 21:14 Clonidine HCl (Catapres Tab) 0.1 mg Q8H PRN ORAL SBP>160mmHg 01/02/19 07:30 01/29/19 07:29 01/07/19 04:52 Dextrose (Dextrose 50%) 25 ml Q30M PRN IV Hypoglycemia 01/02/19 07:30 01/29/19 00:59 Dextrose (Dextrose 50%) 50 ml Q30M PRN IV Hypoglycemia 01/02/19 07:30 01/29/19 00:59 Dextrose/Sodium Chloride 1,000 ml @ 100 mls/hr Q10H IV 01/02/19 08:00 01/29/19 07:59 01/06/19 22:39 Diphenhydramine HCl (Benadryl) 25 mg Q6H PRN ORAL Itching/Pruritis 01/02/19 07:30 01/29/19 07:29 01/03/19 23:14 Lansoprazole (Prevacid) 30 mg BIAC ORAL 01/04/19 20:00 02/03/19 19:59 01/07/19 06:53 Metoprolol Tartrate (Lopressor) 50 mg Q12HR ORAL 01/02/19 09:00 01/30/19 20:59 01/06/19 21:15 Nitroglycerin (Ntg) 0.4 mg Q5M X 3 DOSES PRN SL Prn Chest Pain 01/02/19 07:15 01/29/19 00:59 Ondansetron HCl (Zofran) 4 mg Q6H PRN IVP Nausea & Vomiting 01/02/19 08:00 01/29/19 07:59 Polyethylene Glycol (Miralax) 17 gm HSPRN PRN ORAL Constipation 01/02/19 21:00 02/01/19 20:59 Temazepam (Restoril) 15 mg HSPRN PRN ORAL Insomnia 01/02/19 21:00 01/09/19 20:59 01/03/19 23:14 Cami Soriano NP Jan 07, 2019 08:11
--- NOTE | 2019-01-07 08:29 | NUR ---
NURSE NOTES: Pt is awake. He is still pending EGD, waiting on doct. Vasogui's clearance. 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 Call light within reach and bed is locked and in lowest position. Will continue to follow plan of care.
[2019-01-07] MEDS: Metoprolol Tartrate 50mg tab ORAL SCH ×2 (10:10→21:54)
[2019-01-07] MEDS: D5NS 1,000 ML IV SCH ×2 (10:11→23:22)
--- NOTE | 2019-01-07 10:55 | GI Progress Note ---
Assessment/Plan Problems: (1) Aphasia ICD Codes: R47.01 - Aphasia SNOMED: 72041435 (2) 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 stroke ICD Codes: I69.359 - Hemiplegia and hemiparesis following cerebral infarction affecting unspecified side SNOMED: 208264473 (3) History of CVA (cerebrovascular accident) ICD Codes: Z86.73 - Personal history of transient ischemic attack (TIA), and cerebral infarction without residual deficits SNOMED: 900021706 (4) Essential hypertension ICD Codes: I10 - Essential (primary) hypertension SNOMED: 18676269 (5) GI bleed ICD Codes: K92.2 - Gastrointestinal hemorrhage, unspecified SNOMED: 93525684 (6) Elevated troponin ICD Codes: R74.8 - Abnormal levels of other serum enzymes SNOMED: 170990729, 688224286, 158274714 Status: stable Status Narrative Discussed with Dr. Banegas. Assessment/Plan EGD was cancelled by anesthesia due to abnormal EKG. Cardiology has now cleared patient for procedure. will schedule patient for Thursday if still inpatient, but okay as outpatient given stable H&H. fu labs ppi prn transfusions The patient was seen and examined at bedside and all new and available data was reviewed in the patients chart. I agree with the above findings, impression and plan. (Patient seen earlier today. Signature stamp does not reflect patient encounter time.). - Bib Banegas MD Subjective Subjective limited Objective Last 24 Hour Vital Signs Date Time Temp Pulse Resp B/P (MAP) Pulse Ox O2 Delivery O2 Flow Rate FiO2 01/07/19 10:10 70 130/99 01/07/19 04:52 167/101 01/07/19 04:00 63 01/07/19 04:00 97.6 63 20 167/101 (123) 98 01/07/19 00:00 67 01/07/19 00:00 97.7 67 20 158/110 (126) 96 01/06/19 21:15 67 163/118 01/06/19 21:00 Room Air 01/06/19 20:00 97.9 75 20 159/110 (126) 97 01/06/19 20:00 75 01/06/19 16:00 71 01/06/19 16:00 97.0 71 18 157/99 (118) 97 01/06/19 12:00 97.3 64 20 153/84 (107) 96 01/06/19 12:00 56 Intake and Output 01/06/19 01/07/19 18:59 06:59 Intake Total 240 ml Output Total 1200 ml Balance 240 ml -1200 ml Intake Oral 240 ml Output Urine Total 1200 ml # Voids 1 # Bowel Movements 1 Laboratory Tests Test 01/07/19 06:30 White Blood Count 6.1 K/UL (4.8-10.8) Red Blood Count 4.12 M/UL (4.70-6.10) L Hemoglobin 12.7 G/DL (14.2-18.0) L Hematocrit 38.7 % (42.0-52.0) L Mean Corpuscular Volume 94 FL (80-99) Mean Corpuscular Hemoglobin 30.9 PG (27.0-31.0) Mean Corpuscular Hemoglobin Concent 32.9 G/DL (32.0-36.0) Red Cell Distribution Width 13.0 % (11.6-14.8) Platelet Count 237 K/UL (150-450) Mean Platelet Volume 5.6 FL (6.5-10.1) L Neutrophils (%) (Auto) 60.8 % (45.0-75.0) Lymphocytes (%) (Auto) 21.1 % (20.0-45.0) Monocytes (%) (Auto) 10.5 % (1.0-10.0) H Eosinophils (%) (Auto) 6.6 % (0.0-3.0) H Basophils (%) (Auto) 1.0 % (0.0-2.0) Sodium Level 142 MMOL/L (136-145) Potassium Level 3.4 MMOL/L (3.5-5.1) L Chloride Level 111 MMOL/L (98-107) H Carbon Dioxide Level 27 MMOL/L (21-32) Anion Gap 4 mmol/L (5-15) L Blood Urea Nitrogen 5 mg/dL (7-18) L Creatinine 0.9 MG/DL (0.55-1.30) Estimat Glomerular Filtration Rate > 60 mL/min (>60) Glucose Level 96 MG/DL (74-106) Calcium Level 8.6 MG/DL (8.5-10.1) Height (Feet): 5 Height (Inches): 5.00 Weight (Pounds): 152 General Appearance: WD/WN, no apparent distress, alert Cardiovascular: normal rate Respiratory/Chest: normal breath sounds, no respiratory distress Abdominal Exam: normal bowel sounds, non tender, soft Extremities: non-tender Heather Gonzalez NP Jan 07, 2019 10:55
[2019-01-07 12:00] VITALS: BP 117/71
--- NOTE | 2019-01-07 12:52 | Cardiology Progress Note ---
Assessment/Plan Status: stable Assessment/Plan Assessment/Plan Assessment/Plan 1. Troponin elevation. The levels are flat 0.13, 0.14, 0.14. The patient denies any CP or SOB. His 12-lead EKG showed sinus rhythm with left ventricular hypertrophy with nonspecific ST-T wave abnormality. Continue beta anderson and statin Restart aspirin when cleared by GI Nuclear stress test cancelled by Dr Santana for AMS Ok to do as outpatient when stable Ok to proceed with EGD as needed 2. Hypertension. On metoprolol 50 mg bid. 3. GI bleed. The patient's hemoglobin is stable at around 14. per GI Dispo planning per primary Subjective Cardiovascular: Reports: no symptoms Respiratory: Reports: no symptoms Gastrointestinal/Abdominal: Reports: no symptoms Genitourinary: Reports: no symptoms Subjective Coverage for [place] no acute events, no chest pain, vitals stable, no distress, nursing notes reviewed Objective Last 24 Hour Vital Signs Date Time Temp Pulse Resp B/P (MAP) Pulse Ox O2 Delivery O2 Flow Rate FiO2 01/07/19 10:10 70 130/99 01/07/19 08:00 98.6 70 18 130/93 (105) 93 01/07/19 04:52 167/101 01/07/19 04:00 63 01/07/19 04:00 97.6 63 20 167/101 (123) 98 01/07/19 00:00 67 01/07/19 00:00 97.7 67 20 158/110 (126) 96 01/06/19 21:15 67 163/118 01/06/19 21:00 Room Air 01/06/19 20:00 97.9 75 20 159/110 (126) 97 01/06/19 20:00 75 01/06/19 16:00 71 01/06/19 16:00 97.0 71 18 157/99 (118) 97 General Appearance: no apparent distress, alert EENT: PERRL/EOMI Neck: non-tender, supple, no JVD Rhythm: SB Cardiovascular: normal peripheral pulses, normal rate, regular rhythm Respiratory/Chest: chest wall non-tender, normal breath sounds, no accessory muscle use Abdomen: normal bowel sounds, non tender, soft, no organomegaly, no mass Extremities: normal range of motion, non-tender, normal inspection, no calf tenderness, no swelling 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, no motor/sensory deficits Intake and Output 01/06/19 01/07/19 19:00 07:00 Intake Total 240 ml Output Total 1200 ml Balance 240 ml -1200 ml Intake Oral 240 ml Output Urine Total 1200 ml # Voids 1 # Bowel Movements 1 Laboratory Tests Test 01/07/19 06:30 White Blood Count 6.1 K/UL (4.8-10.8) Red Blood Count 4.12 M/UL (4.70-6.10) L Hemoglobin 12.7 G/DL (14.2-18.0) L Hematocrit 38.7 % (42.0-52.0) L Mean Corpuscular Volume 94 FL (80-99) Mean Corpuscular Hemoglobin 30.9 PG (27.0-31.0) Mean Corpuscular Hemoglobin Concent 32.9 G/DL (32.0-36.0) Red Cell Distribution Width 13.0 % (11.6-14.8) Platelet Count 237 K/UL (150-450) Mean Platelet Volume 5.6 FL (6.5-10.1) L Neutrophils (%) (Auto) 60.8 % (45.0-75.0) Lymphocytes (%) (Auto) 21.1 % (20.0-45.0) Monocytes (%) (Auto) 10.5 % (1.0-10.0) H Eosinophils (%) (Auto) 6.6 % (0.0-3.0) H Basophils (%) (Auto) 1.0 % (0.0-2.0) Sodium Level 142 MMOL/L (136-145) Potassium Level 3.4 MMOL/L (3.5-5.1) L Chloride Level 111 MMOL/L (98-107) H Carbon Dioxide Level 27 MMOL/L (21-32) Anion Gap 4 mmol/L (5-15) L Blood Urea Nitrogen 5 mg/dL (7-18) L Creatinine 0.9 MG/DL (0.55-1.30) Estimat Glomerular Filtration Rate > 60 mL/min (>60) Glucose Level 96 MG/DL (74-106) Calcium Level 8.6 MG/DL (8.5-10.1) Nakul Monaco MD Jan 07, 2019 12:52
--- NOTE | 2019-01-07 14:35 | NUR ---
WEEKLY SWALLOW THERAPY SUMMARY: SEEN FOR DYSPHAGIA, SEE SWALLOW EVAL. CURRENTLY ON KARISHMA PUREED AND THIN LIQ DIET WITH POSTED ASP PREC. GOALS NOT CONSISTENTLY MET FOR INTAKE POOR TO ADEQUATE. UNABLE TO COMPLETE MOD BARIUM SWALLOW STUDY TODAY SINCE PT TO HAVE EGD. GOALS MET FOR STAFF TRAINED IN POSTED ASP PRECAUTIONS. PLAN: MOD BARIUM SWALLOW STUDY IP OR OP IF DC DO NOT HOLD UP DC FOR THIS STUDY CONTINUE WITH CURRENT DIET/LIQ WITH POSTED ASP PREC AND SKILLED DYSPHAGIA MANAGEMENT AND TX ONE TIME PER WEEK IP
[2019-01-07 16:00] VITALS: BP 116/76
--- NOTE | 2019-01-07 19:25 | NUR ---
NURSE NOTES: Received patient from [facility], patient in stable condition, sleeping, no signs of distress, responsive to stimuli, IV site on L wrist G22, asymptomatic, patent, intact, bed low &locked, side rails upX3, call light within reach, will continue to monitor and reassess.
[2019-01-07 20:00] VITALS: BP 154/76
--- NOTE | 2019-01-07 20:04 | NUR ---
HAND-OFF: Report given to Yana/rn. pt in stable condition turn pt q 2hrs endorsed to RN, pt doesn't like to be starring at the window so much
--- NOTE | 2019-01-07 20:55 | Internal Med Progress Note ---
Subjective Physician Name Ted Dunn Attending Physician Ted Dunn MD Current Medications Medications (Trade) Dose Ordered Sig/Barby Route PRN Reason Start Time Stop Time Status Last Admin Dose Admin Acetaminophen (Tylenol) 650 mg Q4H PRN ORAL T>100.5 01/02/19 08:00 01/29/19 07:59 Atorvastatin Calcium (Lipitor) 20 mg BEDTIME ORAL 01/02/19 21:00 01/30/19 20:59 01/06/19 21:14 Clonidine HCl (Catapres Tab) 0.1 mg Q8H PRN ORAL SBP>160mmHg 01/02/19 07:30 01/29/19 07:29 01/07/19 04:52 Dextrose (Dextrose 50%) 25 ml Q30M PRN IV Hypoglycemia 01/02/19 07:30 01/29/19 00:59 Dextrose (Dextrose 50%) 50 ml Q30M PRN IV Hypoglycemia 01/02/19 07:30 01/29/19 00:59 Dextrose/Sodium Chloride 1,000 ml @ 75 mls/hr [id number] IV 01/07/19 09:46 02/06/19 09:45 01/07/19 10:11 Diphenhydramine HCl (Benadryl) 25 mg Q6H PRN ORAL Itching/Pruritis 01/02/19 07:30 01/29/19 07:29 01/03/19 23:14 Lansoprazole (Prevacid) 30 mg BIAC ORAL 01/04/19 20:00 02/03/19 19:59 01/07/19 16:58 Metoprolol Tartrate (Lopressor) 50 mg Q12HR ORAL 01/02/19 09:00 01/30/19 20:59 01/07/19 10:10 Nitroglycerin (Ntg) 0.4 mg Q5M X 3 DOSES PRN SL Prn Chest Pain 01/02/19 07:15 01/29/19 00:59 Ondansetron HCl (Zofran) 4 mg Q6H PRN IVP Nausea & Vomiting 01/02/19 08:00 01/29/19 07:59 Polyethylene Glycol (Miralax) 17 gm HSPRN PRN ORAL Constipation 01/02/19 21:00 02/01/19 20:59 Temazepam (Restoril) 15 mg HSPRN PRN ORAL Insomnia 01/02/19 21:00 01/09/19 20:59 01/03/19 23:14 Allergies: Coded Allergies: No Known Allergies (Unverified , 12/29/18) Subjective awake, alert, responsive, denies any abdominal pain , awake, responsive, NAD, Hgb: 12.5. Objective Last Vital Signs Date Time Temp Pulse Resp B/P (MAP) Pulse Ox O2 Delivery O2 Flow Rate FiO2 01/07/19 16:00 98.1 86 20 116/76 (89) 98 01/06/19 21:00 Room Air 12/29/18 23:23 97 Laboratory Tests Test 01/07/19 06:30 White Blood Count 6.1 K/UL (4.8-10.8) Red Blood Count 4.12 M/UL (4.70-6.10) L Hemoglobin 12.7 G/DL (14.2-18.0) L Hematocrit 38.7 % (42.0-52.0) L Mean Corpuscular Volume 94 FL (80-99) Mean Corpuscular Hemoglobin 30.9 PG (27.0-31.0) Mean Corpuscular Hemoglobin Concent 32.9 G/DL (32.0-36.0) Red Cell Distribution Width 13.0 % (11.6-14.8) Platelet Count 237 K/UL (150-450) Mean Platelet Volume 5.6 FL (6.5-10.1) L Neutrophils (%) (Auto) 60.8 % (45.0-75.0) Lymphocytes (%) (Auto) 21.1 % (20.0-45.0) Monocytes (%) (Auto) 10.5 % (1.0-10.0) H Eosinophils (%) (Auto) 6.6 % (0.0-3.0) H Basophils (%) (Auto) 1.0 % (0.0-2.0) Sodium Level 142 MMOL/L (136-145) Potassium Level 3.4 MMOL/L (3.5-5.1) L Chloride Level 111 MMOL/L (98-107) H Carbon Dioxide Level 27 MMOL/L (21-32) Anion Gap 4 mmol/L (5-15) L Blood Urea Nitrogen 5 mg/dL (7-18) L Creatinine 0.9 MG/DL (0.55-1.30) Estimat Glomerular Filtration Rate > 60 mL/min (>60) Glucose Level 96 MG/DL (74-106) Calcium Level 8.6 MG/DL (8.5-10.1) Intake and Output 01/06/19 01/07/19 19:00 07:00 Intake Total 240 ml 120 ml Output Total 1200 ml Balance 240 ml -1080 ml Intake Oral 240 ml 120 ml Output Urine Total 1200 ml # Voids 1 # Bowel Movements 1 Objective General: No acute distress, awake and responsive HEENT: NCAT, sclera anicteric, PERRL, EOMI, Neck: Supple, no significant jugular venous distention, Lungs: fair inspiratory effort, , decrease air at bases,no Wheeze or Rales. Heart: Regular rate and rhythm, normal S1/S2, no murmur. Abdomen: soft, nontender, nondistended. Normoactive bowel sounds, obesity, : Rodriguez cath. Extremities: No Cyanosis , clubbing or edema. Neuro: CN 2-12 intact, not verbal minimal extremities movement. Skin: warm, no rash. Assessment/Plan Assessment/Plan 1. Rectal bleeding / Gastrointestinal hemorrhage. 2. Hypertension. 3. Hypercholesterolemia. 4. Cerebrovascular disease. 5. Hemiplegia. 6. Aphasia. 7. Elevated troponin. TREATMENT: 1. Gastrointestinal hemorrhage. A Gastroenterology consultation has been obtained with Dr. Bib Banegas. We will follow recommendations of Gastroenterology. 2. Hypertension. Continue enalapril and diltiazem as above. Continue metoprolol as above. 3. Hypercholesterolemia. Continue atorvastatin as above. 4. Cerebrovascular disease/hemiplegia/aphasia. Hold aspirin for now due to gastrointestinal hemorrhage. 5. Elevated troponin. A Cardiology consultation with Dr. Aguilar. EGD was cancelled by anesthesia due to abnormal EKG H/H stable. Ted Dunn MD Jan 07, 2019 20:55
[2019-01-07] MEDS: Atorvastatin 20mg tab ORAL SCH (21:53)
[2019-01-08] VITALS (8 sets, daily range): BP systolic 112–194; BP diastolic 65–127
[2019-01-08] MEDS ORDERED: LORazepam Inj 2mg/ml 1ml IV SCH (00:15)
--- NOTE | 2019-01-08 07:45 | NUR ---
HAND-OFF: Report given to REJI Reyes, patient in stable condition, plan of care endorsed..
--- NOTE | 2019-01-08 07:49 | NUR ---
NURSE NOTES: received pt from the
--- NOTE | 2019-01-08 07:53 | Pulmonology Progress Note ---
Assessment/Plan Assessment/Plan ASSESSMENT GI hemorrhage History of CVA with aphasia and hemiplegia Hypertension Elevated troponin Hyperlipidemia Dysphagia HypoK PLAN OF CARE tele serial troponin with minimal elevation, levels flat, no complaints of chest pain or SOB ECHO with pEF 60%, RVSP of 34 nuclear stress test incomplete; no perfusion abnormality on resting imaging beta blockage ASA on hold due to GI bleed statin continued BP management with BB, not controlled, increase Metoprolol to 75 bid ( prior was on 100mg bid ) and add prn Hydralazine Venous duplex BLE negative decrease IV rate to 50 and dc soon O2 HHN prn H&H remained stable EGD 01/05 canceled by anesthesiology due to abnormal EKG GI prophylaxis monitor H&H with goal to keep hemoglobin above 7 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 okay to do nuclear stress test as outpatient as per cardio K replaced 01/07, BMP pending for this am swallow eval with + dysphagia, asp precautions, diet texture as per [facility] dysphagia management supportive care case discussed and evaluated by supervising physician Subjective Allergies: Coded Allergies: No Known Allergies (Unverified , 12/29/18) Subjective no chest pain, no SOB pulse ox stable on RA troponin minimally elevated no black tarry stool overnight, HH stable BP elevated Objective Last 24 Hour Vital Signs Date Time Temp Pulse Resp B/P (MAP) Pulse Ox O2 Delivery O2 Flow Rate FiO2 01/08/19 04:29 178/112 01/08/19 04:00 99.0 81 20 178/112 (134) 98 01/08/19 04:00 64 01/08/19 00:00 99.0 82 21 172/76 (108) 98 01/08/19 00:00 65 01/07/19 21:54 86 154/76 01/07/19 21:00 Room Air 01/07/19 20:00 99.0 86 20 154/76 (102) 96 01/07/19 20:00 76 01/07/19 16:00 98.1 86 20 116/76 (89) 98 01/07/19 16:00 71 01/07/19 12:00 68 01/07/19 12:00 97.8 81 20 117/71 (86) 93 01/07/19 10:10 70 130/99 01/07/19 08:00 62 01/07/19 08:00 98.6 70 18 130/93 (105) 93 Intake and Output 01/07/19 01/08/19 19:00 07:00 Intake Total 280 ml Output Total 111 ml 1700 ml Balance 169 ml -1700 ml Intake Oral 280 ml Output Urine Total 111 ml 1700 ml Objective General Appearance: no acute distress, awake, alert, aphasic AA male in NAD HEENT: normocephalic, atraumatic, anicteric, mucous membranes moist Respiratory/Chest: lungs clear, no respiratory distress, no accessory muscle use Cardiovascular: normal peripheral pulses, normal rate, regular rhythm , SR on tele Abdomen: normal bowel sounds, soft, non tender Extremities: no edema Neurologic/Psychiatric: alert, responsive, aphasic, hemiplegia Musculoskeletal: atrophy BLE Current Medications Medications (Trade) Dose Ordered Sig/Barby Route PRN Reason Start Time Stop Time Status Last Admin Dose Admin Acetaminophen (Tylenol) 650 mg Q4H PRN ORAL T>100.5 01/02/19 08:00 01/29/19 07:59 Atorvastatin Calcium (Lipitor) 20 mg BEDTIME ORAL 01/02/19 21:00 01/30/19 20:59 01/07/19 21:53 Clonidine HCl (Catapres Tab) 0.1 mg Q8H PRN ORAL SBP>160mmHg 01/02/19 07:30 01/29/19 07:29 01/08/19 04:29 Dextrose (Dextrose 50%) 25 ml Q30M PRN IV Hypoglycemia 01/02/19 07:30 01/29/19 00:59 Dextrose (Dextrose 50%) 50 ml Q30M PRN IV Hypoglycemia 01/02/19 07:30 01/29/19 00:59 Dextrose/Sodium Chloride 1,000 ml @ 75 mls/hr [id number] IV 01/07/19 09:46 02/06/19 09:45 01/07/19 23:22 Diphenhydramine HCl (Benadryl) 25 mg Q6H PRN ORAL Itching/Pruritis 01/02/19 07:30 01/29/19 07:29 01/03/19 23:14 Lansoprazole (Prevacid) 30 mg BIAC ORAL 01/04/19 20:00 02/03/19 19:59 01/08/19 06:46 Metoprolol Tartrate (Lopressor) 50 mg Q12HR ORAL 01/02/19 09:00 01/30/19 20:59 01/07/19 21:54 Nitroglycerin (Ntg) 0.4 mg Q5M X 3 DOSES PRN SL Prn Chest Pain 01/02/19 07:15 01/29/19 00:59 Ondansetron HCl (Zofran) 4 mg Q6H PRN IVP Nausea & Vomiting 01/02/19 08:00 01/29/19 07:59 Polyethylene Glycol (Miralax) 17 gm HSPRN PRN ORAL Constipation 01/02/19 21:00 02/01/19 20:59 Temazepam (Restoril) 15 mg HSPRN PRN ORAL Insomnia 01/02/19 21:00 01/09/19 20:59 01/03/19 23:14 Cami Soriano NP Jan 08, 2019 07:53
[2019-01-08 08:36] LABS: BASOPHILS % (AUTO) 1.1 % (0.0-2.0); EOSINOPHILS % (AUTO) 7.4 % (0.0-3.0); HEMATOCRIT 39.8 % (42.0-52.0); LYMPHOCYTES % (AUTO) 24.3 % (20.0-45.0); MEAN CORPUSCULAR VOLUME 93 FL (80-99); MONOCYTES % (AUTO) 9.8 % (1.0-10.0); NEUTROPHILS % (AUTO) 57.4 % (45.0-75.0); PLATELET COUNT 238 K/UL (150-450); RED BLOOD COUNT 4.28 M/UL (4.70-6.10); RED CELL DISTRIBUTION WIDTH 12.9 % (11.6-14.8); WHITE BLOOD COUNT 5.7 K/UL (4.8-10.8)
[2019-01-08] MEDS ORDERED: HydrALAZINE 25mg tab ORAL PRN (08:46)
--- NOTE | 2019-01-08 08:56 | General Progress Note ---
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 Cardiology has now cleared patient for procedure. will schedule patient for Thursday if still inpatient, but okay as outpatient given stable H&H. fu labs ppi prn transfusion Subjective ROS Limited/Unobtainable: Yes Allergies: Coded Allergies: No Known Allergies (Unverified , 12/29/18) Subjective black tarry stool Objective Last 24 Hour Vital Signs Date Time Temp Pulse Resp B/P (MAP) Pulse Ox O2 Delivery O2 Flow Rate FiO2 01/08/19 04:29 178/112 01/08/19 04:00 99.0 81 20 178/112 (134) 98 01/08/19 04:00 64 01/08/19 00:00 99.0 82 21 172/76 (108) 98 01/08/19 00:00 65 01/07/19 21:54 86 154/76 01/07/19 21:00 Room Air 01/07/19 20:00 99.0 86 20 154/76 (102) 96 01/07/19 20:00 76 01/07/19 16:00 98.1 86 20 116/76 (89) 98 01/07/19 16:00 71 01/07/19 12:00 68 01/07/19 12:00 97.8 81 20 117/71 (86) 93 01/07/19 10:10 70 130/99 Intake and Output 01/07/19 01/08/19 19:00 07:00 Intake Total 280 ml 120 ml Output Total 111 ml 1700 ml Balance 169 ml -1580 ml Intake Oral 280 ml 120 ml Output Urine Total 111 ml 1700 ml Laboratory Tests 01/08/19 07:01: White Blood Count 5.7, Red Blood Count 4.28L, Hemoglobin 13.0L, Hematocrit 39.8L , Mean Corpuscular Volume 93, Mean Corpuscular Hemoglobin 30.4, Mean Corpuscular Hemoglobin Concent 32.6, Red Cell Distribution Width 12.9, Platelet Count 238, Mean Platelet Volume 4.8L, Neutrophils (%) (Auto) 57.4, Lymphocytes ( %) (Auto) 24.3, Monocytes (%) (Auto) 9.8, Eosinophils (%) (Auto) 7.4H, Basophils (%) (Auto) 1.1, Sodium Level [Pending], Potassium Level [Pending], Chloride Level [Pending], Carbon Dioxide Level [Pending], Blood Urea Nitrogen [ Pending], Creatinine [Pending], Estimat Glomerular Filtration Rate [Pending], Glucose Level [Pending], Calcium Level [Pending], Magnesium Level [Pending] Height (Feet): 5 Height (Inches): 5.00 Weight (Pounds): 152 General Appearance: alert EENT: normal ENT inspection Neck: supple Cardiovascular: normal rate Respiratory/Chest: decreased breath sounds Abdomen: normal bowel sounds, non tender, soft Extremities: non-tender Bib Banegas MD Jan 08, 2019 08:56
[2019-01-08 09:02] LABS: ANION GAP 8 mmol/L (5-15); BLOOD UREA NITROGEN 5 mg/dL (7-18); CALCIUM 8.9 MG/DL (8.5-10.1); CARBON DIOXIDE 26 MMOL/L (21-32); CHLORIDE 109 MMOL/L (98-107); CREATININE 0.8 MG/DL (0.55-1.30); POTASSIUM 3.8 MMOL/L (3.5-5.1); SODIUM 143 MMOL/L (136-145)
[2019-01-08] MEDS: Metoprolol 25mg tab ORAL SCH ×2 (09:25→19:58)
[2019-01-08] MEDS: D5NS 1,000 ML IV SCH (09:27)
--- NOTE | 2019-01-08 10:03 | Cardiology Progress Note ---
Assessment/Plan Status: stable Assessment/Plan Assessment/Plan Assessment/Plan 1. Troponin elevation. The levels are flat 0.13, 0.14, 0.14. The patient denies any CP or SOB. His 12-lead EKG showed sinus rhythm with left ventricular hypertrophy with nonspecific ST-T wave abnormality. Continue beta anderson and statin Restart aspirin when cleared by GI Nuclear stress test cancelled by Dr Santana for AMS Ok to do as outpatient when stable Ok to proceed with EGD as needed 2. Hypertension. On metoprolol 50 mg bid. 3. GI bleed. The patient's hemoglobin is stable at around 14. per GI Dispo planning per primary Subjective Cardiovascular: Reports: no symptoms Respiratory: Reports: no symptoms Gastrointestinal/Abdominal: Reports: no symptoms Genitourinary: Reports: no symptoms Subjective Coverage for [place] no acute events, no chest pain, vitals stable, no distress, nursing notes reviewed Plan for EGD thursday Objective Last 24 Hour Vital Signs Date Time Temp Pulse Resp B/P (MAP) Pulse Ox O2 Delivery O2 Flow Rate FiO2 01/08/19 09:25 69 162/105 01/08/19 08:00 97.3 69 19 162/105 (124) 97 01/08/19 04:29 178/112 01/08/19 04:00 99.0 81 20 178/112 (134) 98 01/08/19 04:00 64 01/08/19 00:00 99.0 82 21 172/76 (108) 98 01/08/19 00:00 65 01/07/19 21:54 86 154/76 01/07/19 21:00 Room Air 01/07/19 20:00 99.0 86 20 154/76 (102) 96 01/07/19 20:00 76 01/07/19 16:00 98.1 86 20 116/76 (89) 98 01/07/19 16:00 71 01/07/19 12:00 68 01/07/19 12:00 97.8 81 20 117/71 (86) 93 01/07/19 10:10 70 130/99 General Appearance: no apparent distress, alert EENT: PERRL/EOMI, normal ENT inspection, TMs normal, pharynx normal Neck: non-tender, normal alignment, supple, normal inspection, no JVD Rhythm: NSR Cardiovascular: normal peripheral pulses, normal rate, no gallop/murmur Respiratory/Chest: chest wall non-tender, lungs clear Abdomen: normal bowel sounds, non tender, soft, no organomegaly, no mass Extremities: normal range of motion, non-tender, normal inspection Intake and Output 01/07/19 01/08/19 19:00 07:00 Intake Total 280 ml 120 ml Output Total 111 ml 1700 ml Balance 169 ml -1580 ml Intake Oral 280 ml 120 ml Output Urine Total 111 ml 1700 ml Laboratory Tests Test 01/08/19 07:01 White Blood Count 5.7 K/UL (4.8-10.8) Red Blood Count 4.28 M/UL (4.70-6.10) L Hemoglobin 13.0 G/DL (14.2-18.0) L Hematocrit 39.8 % (42.0-52.0) L Mean Corpuscular Volume 93 FL (80-99) Mean Corpuscular Hemoglobin 30.4 PG (27.0-31.0) Mean Corpuscular Hemoglobin Concent 32.6 G/DL (32.0-36.0) Red Cell Distribution Width 12.9 % (11.6-14.8) Platelet Count 238 K/UL (150-450) Mean Platelet Volume 4.8 FL (6.5-10.1) L Neutrophils (%) (Auto) 57.4 % (45.0-75.0) Lymphocytes (%) (Auto) 24.3 % (20.0-45.0) Monocytes (%) (Auto) 9.8 % (1.0-10.0) Eosinophils (%) (Auto) 7.4 % (0.0-3.0) H Basophils (%) (Auto) 1.1 % (0.0-2.0) Sodium Level 143 MMOL/L (136-145) Potassium Level 3.8 MMOL/L (3.5-5.1) Chloride Level 109 MMOL/L (98-107) H Carbon Dioxide Level 26 MMOL/L (21-32) Anion Gap 8 mmol/L (5-15) Blood Urea Nitrogen 5 mg/dL (7-18) L Creatinine 0.8 MG/DL (0.55-1.30) Estimat Glomerular Filtration Rate > 60 mL/min (>60) Glucose Level 92 MG/DL (74-106) Calcium Level 8.9 MG/DL (8.5-10.1) Magnesium Level 1.8 MG/DL (1.8-2.4) Nakul Monaco MD Jan 08, 2019 10:03
--- NOTE | 2019-01-08 12:49 | NUR ---
NURSE NOTES: Dr. Brian made aware that patient had paroxysmal afib for 5 secs @ 1035 and that pt is asymptomatic. Dr brian acknowledged the report. no new orders received.will continue to monitor.
[2019-01-08] MEDS: HydrALAZINE 25mg tab ORAL PRN ×2 (16:16→23:34)
[2019-01-08] MEDS ORDERED: D5NS 1000ml IV ONE (17:03)
--- NOTE | 2019-01-08 19:16 | NUR ---
HAND-OFF: Report given to Yana MENDOZA.
--- NOTE | 2019-01-08 19:20 | NUR ---
NURSE NOTES: Received report from REJI Reyes, patient in stable condition, AOx1, not able to make needs known, on room air, VSS, IV on right forearm, asymptomatic, patent, intact, bed low & locked, call light within reach, will continue to monitor and reassess.
[2019-01-08] MEDS: Atorvastatin 20mg tab ORAL SCH (19:59)
[2019-01-09] VITALS (8 sets, daily range): BP systolic 141–205; BP diastolic 80–154
--- NOTE | 2019-01-09 01:46 | NUR ---
NURSE NOTES: Patient's BP is above parameters despite administering blood pressure medications.Called Dr. Huertas awaiting call back for orders
--- NOTE | 2019-01-09 02:20 | NUR ---
Paged as well regarding patient's BP. Awaiting call back
[2019-01-09] MEDS: D5NS 1,000 ML IV SCH (05:51)
--- NOTE | 2019-01-09 06:11 | General Progress Note ---
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 Cardiology has now cleared patient for procedure. will schedule patient for Thursday if still inpatient, but okay as outpatient given stable H&H. fu labs ppi prn transfusion Subjective ROS Limited/Unobtainable: Yes Allergies: Coded Allergies: No Known Allergies (Unverified , 12/29/18) Subjective black tarry stool Objective Last 24 Hour Vital Signs Date Time Temp Pulse Resp B/P (MAP) Pulse Ox O2 Delivery O2 Flow Rate FiO2 01/09/19 04:00 61 01/09/19 04:00 98.5 82 22 205/127 (153) 98 01/09/19 01:41 193/120 (144) 01/09/19 00:00 72 01/09/19 00:00 98.5 76 20 182/154 (163) 97 01/08/19 23:34 184/154 01/08/19 22:02 179/109 (132) 01/08/19 21:00 Room Air 01/08/19 20:00 85 01/08/19 19:58 88 194/126 01/08/19 19:55 98.5 88 18 194/126 (148) 97 01/08/19 17:33 112/65 (81) 01/08/19 16:16 167/126 01/08/19 16:00 98.5 68 17 167/127 (140) 97 01/08/19 15:34 67 01/08/19 12:00 98.6 71 18 138/92 (107) 97 01/08/19 11:51 58 01/08/19 09:25 69 162/105 8/17/19 08:00 97.3 69 19 162/105 (124) 97 01/08/19 07:51 59 Intake and Output 01/08/19 01/09/19 19:00 07:00 Intake Total 840 ml Output Total 1200 ml Balance -360 ml Intake Oral 390 ml IV Total 450 ml Output Urine Total 1200 ml Laboratory Tests 01/08/19 07:01: White Blood Count 5.7, Red Blood Count 4.28L, Hemoglobin 13.0L, Hematocrit 39.8L , Mean Corpuscular Volume 93, Mean Corpuscular Hemoglobin 30.4, Mean Corpuscular Hemoglobin Concent 32.6, Red Cell Distribution Width 12.9, Platelet Count 238, Mean Platelet Volume 4.8L, Neutrophils (%) (Auto) 57.4, Lymphocytes ( %) (Auto) 24.3, Monocytes (%) (Auto) 9.8, Eosinophils (%) (Auto) 7.4H, Basophils (%) (Auto) 1.1, Sodium Level 143, Potassium Level 3.8, Chloride Level 109H, Carbon Dioxide Level 26, Anion Gap 8, Blood Urea Nitrogen 5L, Creatinine 0.8, Estimat Glomerular Filtration Rate > 60, Glucose Level 92, Calcium Level 8.9, Magnesium Level 1.8 Height (Feet): 5 Height (Inches): 5.00 Weight (Pounds): 152 General Appearance: no apparent distress EENT: normal ENT inspection Neck: supple Cardiovascular: normal rate Respiratory/Chest: decreased breath sounds Abdomen: normal bowel sounds, non tender, soft Extremities: non-tender Bib Banegas MD Jan 09, 2019 06:11
[2019-01-09] MEDS: HydrALAZINE 25mg tab ORAL PRN (06:36)
--- NOTE | 2019-01-09 07:00 | NUR ---
HAND-OFF: Report given to REJI Babin, patient in stable condition, plan of care endorsed.
--- NOTE | 2019-01-09 07:20 | NUR ---
NURSE NOTES: Received report from Malena/RN, Patient is awake, A&O x1, on room air, No acute distress/SOB noted. Director Safety drawing blood for morning labs. . IV site patent, no bleeding or infiltration noted. Bed in low position and locked, bed alarm is on, side rails up x3. Call light and personal belonging within reach. Will continue plan of care.
--- NOTE | 2019-01-09 09:42 | Pulmonology Progress Note ---
Assessment/Plan Assessment/Plan ASSESSMENT GI hemorrhage History of CVA with aphasia and hemiplegia Hypertensive urgency Elevated troponin Hyperlipidemia Dysphagia HypoK PLAN OF CARE tele serial troponin with minimal elevation, levels flat, no complaints of chest pain or SOB ECHO with pEF 60%, RVSP of 34 nuclear stress test incomplete; no perfusion abnormality on resting imaging beta blockage ASA on hold due to GI bleed statin continued BP management with BB, not controlled, increased Metoprolol to 75 bid ( at home was on 100mg bid ), add Hydralazine 25 ATC , optimize further as needed Venous duplex BLE negative decrease IV rate to 50 and dc soon O2 HHN prn H&H remained stable EGD 01/05 canceled by anesthesiology due to abnormal EKG GI prophylaxis monitor H&H with goal to keep hemoglobin above 7 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 okay to do nuclear stress test as outpatient as per cardio K replaced 01/07, BMP pending for this am swallow eval with + dysphagia, asp precautions, diet texture as per [facility] dysphagia management supportive care case discussed and evaluated by supervising physician Subjective Allergies: Coded Allergies: No Known Allergies (Unverified , 12/29/18) Subjective no chest pain, no SOB pulse ox stable on RA troponin minimally elevated no black tarry stool overnight, HH stable BP significantly elevated despite incerase in metoprolol 01/08 Objective Last 24 Hour Vital Signs Date Time Temp Pulse Resp B/P (MAP) Pulse Ox O2 Delivery O2 Flow Rate FiO2 01/09/19 06:36 175/111 01/09/19 06:30 175/111 (132) 01/09/19 04:00 61 01/09/19 04:00 98.5 82 22 205/127 (153) 98 01/09/19 01:41 193/120 (144) 01/09/19 00:00 72 01/09/19 00:00 98.5 76 20 182/154 (163) 97 01/08/19 23:34 184/154 01/08/19 22:02 179/109 (132) 01/08/19 21:00 Room Air 01/08/19 20:00 85 01/08/19 19:58 88 194/126 01/08/19 19:55 98.5 88 18 194/126 (148) 97 01/08/19 17:33 112/65 (81) 01/08/19 16:16 167/126 8/17/19 16:00 98.5 68 17 167/127 (140) 97 01/08/19 15:34 67 01/08/19 12:00 98.6 71 18 138/92 (107) 97 01/08/19 11:51 58 Intake and Output 01/08/19 01/09/19 19:00 07:00 Intake Total 840 ml Output Total 1200 ml Balance -360 ml Intake Oral 390 ml IV Total 450 ml Output Urine Total 1200 ml # Voids 2 Objective General Appearance: no acute distress, awake, alert, aphasic AA male in NAD HEENT: normocephalic, atraumatic, anicteric, mucous membranes moist Respiratory/Chest: lungs clear, no respiratory distress, no accessory muscle use Cardiovascular: normal peripheral pulses, normal rate, regular rhythm , SR on tele Abdomen: normal bowel sounds, soft, non tender Extremities: no edema Neurologic/Psychiatric: alert, responsive, aphasic, hemiplegia Musculoskeletal: atrophy BLE Current Medications Medications (Trade) Dose Ordered Sig/Barby Route PRN Reason Start Time Stop Time Status Last Admin Dose Admin Acetaminophen (Tylenol) 650 mg Q4H PRN ORAL T>100.5 01/02/19 08:00 01/29/19 07:59 Atorvastatin Calcium (Lipitor) 20 mg BEDTIME ORAL 01/02/19 21:00 01/30/19 20:59 01/08/19 19:59 Clonidine HCl (Catapres Tab) 0.1 mg Q6H PRN ORAL For High Blood Pressure 01/09/19 07:15 02/08/19 07:14 Dextrose (Dextrose 50%) 25 ml Q30M PRN IV Hypoglycemia 01/02/19 07:30 01/29/19 00:59 Dextrose (Dextrose 50%) 50 ml Q30M PRN IV Hypoglycemia 01/02/19 07:30 01/29/19 00:59 Dextrose/Sodium Chloride 1,000 ml @ 50 mls/hr Q20H IV 01/08/19 10:00 02/06/19 09:59 01/09/19 05:51 Diphenhydramine HCl (Benadryl) 25 mg Q6H PRN ORAL Itching/Pruritis 01/02/19 07:30 01/29/19 07:29 01/03/19 23:14 Hydralazine HCl (Apresoline) 25 mg Q6H PRN ORAL sbp above 160 01/08/19 09:15 02/07/19 08:45 01/09/19 06:36 Lansoprazole (Prevacid) 30 mg BIAC ORAL 01/04/19 20:00 02/03/19 19:59 01/09/19 05:51 Metoprolol Tartrate (Lopressor) 75 mg Q12HR ORAL 01/08/19 09:00 01/30/19 20:59 01/08/19 19:58 Nitroglycerin (Ntg) 0.4 mg Q5M X 3 DOSES PRN SL Prn Chest Pain 01/02/19 07:15 01/29/19 00:59 Ondansetron HCl (Zofran) 4 mg Q6H PRN IVP Nausea & Vomiting 01/02/19 08:00 01/29/19 07:59 Polyethylene Glycol (Miralax) 17 gm HSPRN PRN ORAL Constipation 01/02/19 21:00 02/01/19 20:59 Temazepam (Restoril) 15 mg HSPRN PRN ORAL Insomnia 01/08/19 21:00 01/15/19 20:59 Cami Soriano NP Jan 09, 2019 09:42
--- NOTE | 2019-01-09 09:59 | Cardiology Progress Note ---
Assessment/Plan Status: stable Assessment/Plan Assessment/Plan Assessment/Plan 1. Troponin elevation. The levels are flat 0.13, 0.14, 0.14. The patient denies any CP or SOB. His 12-lead EKG showed sinus rhythm with left ventricular hypertrophy with nonspecific ST-T wave abnormality. Continue beta anderson and statin Restart aspirin when cleared by GI Nuclear stress test cancelled by Dr Santana for AMS Ok to do as outpatient when stable Ok to proceed with EGD as needed 2. Hypertension. On metoprolol 50 mg bid. 3. GI bleed. The patient's hemoglobin is stable at around 14. per GI Dispo planning per primary Subjective Cardiovascular: Reports: no symptoms Respiratory: Reports: no symptoms Gastrointestinal/Abdominal: Reports: no symptoms Genitourinary: Reports: no symptoms Subjective Coverage for [place] no acute events, no chest pain, vitals stable, no distress, nursing notes reviewed Plan for EGD thursday Objective Last 24 Hour Vital Signs Date Time Temp Pulse Resp B/P (MAP) Pulse Ox O2 Delivery O2 Flow Rate FiO2 01/09/19 06:36 175/111 01/09/19 06:30 175/111 (132) 01/09/19 04:00 61 01/09/19 04:00 98.5 82 22 205/127 (153) 98 01/09/19 01:41 193/120 (144) 01/09/19 00:00 72 01/09/19 00:00 98.5 76 20 182/154 (163) 97 01/08/19 23:34 184/154 01/08/19 22:02 179/109 (132) 01/08/19 21:00 Room Air 01/08/19 20:00 85 01/08/19 19:58 88 194/126 01/08/19 19:55 98.5 88 18 194/126 (148) 97 01/08/19 17:33 112/65 (81) 01/08/19 16:16 167/126 01/08/19 16:00 98.5 68 17 167/127 (140) 97 01/08/19 15:34 67 01/08/19 12:00 98.6 71 18 138/92 (107) 97 01/08/19 11:51 58 General Appearance: no apparent distress, alert EENT: PERRL/EOMI, normal ENT inspection, TMs normal, pharynx normal Neck: non-tender, normal alignment, supple, normal inspection, no JVD Rhythm: NSR Cardiovascular: normal peripheral pulses, normal rate, regular rhythm Respiratory/Chest: chest wall non-tender, lungs clear, normal breath sounds Abdomen: normal bowel sounds, non tender, soft, no organomegaly, no mass Extremities: normal range of motion, non-tender, normal inspection Intake and Output 01/08/19 01/09/19 19:00 07:00 Intake Total 840 ml Output Total 1200 ml Balance -360 ml Intake Oral 390 ml IV Total 450 ml Output Urine Total 1200 ml # Voids 2 Nakul Monaco MD Jan 09, 2019 09:59
[2019-01-09] MEDS: Metoprolol 25mg tab ORAL SCH ×2 (10:06→21:00)
[2019-01-09] MEDS: HydrALAZINE 25mg tab ORAL SCH ×3 (10:06→17:23)
[2019-01-09 10:20] LABS: BASOPHILS % (AUTO) 1.4 % (0.0-2.0); EOSINOPHILS % (AUTO) 5.6 % (0.0-3.0); HEMATOCRIT 49.2 % (42.0-52.0); HEMOGLOBIN 15.6 G/DL (14.2-18.0); LYMPHOCYTES % (AUTO) 21.4 % (20.0-45.0); MEAN CORPUSCULAR VOLUME 94 FL (80-99); MONOCYTES % (AUTO) 7.2 % (1.0-10.0); NEUTROPHILS % (AUTO) 64.4 % (45.0-75.0); PLATELET COUNT 243 K/UL (150-450); RED BLOOD COUNT 5.23 M/UL (4.70-6.10)
[2019-01-09 10:29] LABS: ANION GAP 3 mmol/L (5-15); BLOOD UREA NITROGEN 5 mg/dL (7-18); CALCIUM 9.1 MG/DL (8.5-10.1); CARBON DIOXIDE 29 MMOL/L (21-32); CHLORIDE 108 MMOL/L (98-107); CREATININE 0.9 MG/DL (0.55-1.30); POTASSIUM 3.8 MMOL/L (3.5-5.1); SODIUM 140 MMOL/L (136-145)
--- NOTE | 2019-01-09 15:17 | Internal Med Progress Note ---
Subjective Physician Name Ted Dunn Attending Physician Ted Dunn MD Current Medications Medications (Trade) Dose Ordered Sig/Barby Route PRN Reason Start Time Stop Time Status Last Admin Dose Admin Acetaminophen (Tylenol) 650 mg Q4H PRN ORAL T>100.5 01/02/19 08:00 01/29/19 07:59 Atorvastatin Calcium (Lipitor) 20 mg BEDTIME ORAL 01/02/19 21:00 01/30/19 20:59 01/08/19 19:59 Clonidine HCl (Catapres Tab) 0.1 mg Q6H PRN ORAL For High Blood Pressure 01/09/19 07:15 02/08/19 07:14 01/09/19 12:08 Dextrose (Dextrose 50%) 25 ml Q30M PRN IV Hypoglycemia 01/02/19 07:30 01/29/19 00:59 Dextrose (Dextrose 50%) 50 ml Q30M PRN IV Hypoglycemia 01/02/19 07:30 01/29/19 00:59 Dextrose/Sodium Chloride 1,000 ml @ 50 mls/hr Q20H IV 01/08/19 10:00 02/06/19 09:59 01/09/19 05:51 Diphenhydramine HCl (Benadryl) 25 mg Q6H PRN ORAL Itching/Pruritis 01/02/19 07:30 01/29/19 07:29 01/03/19 23:14 Hydralazine HCl (Apresoline) 25 mg Q6H PRN ORAL sbp above 160 01/08/19 09:15 02/07/19 08:45 01/09/19 06:36 Hydralazine HCl (Apresoline) 25 mg TID ORAL 01/09/19 09:45 02/08/19 09:44 01/09/19 12:08 Lansoprazole (Prevacid) 30 mg BIAC ORAL 01/04/19 20:00 02/03/19 19:59 01/09/19 05:51 Metoprolol Tartrate (Lopressor) 75 mg Q12HR ORAL 01/08/19 09:00 01/30/19 20:59 01/09/19 10:06 Nitroglycerin (Ntg) 0.4 mg Q5M X 3 DOSES PRN SL Prn Chest Pain 01/02/19 07:15 01/29/19 00:59 Ondansetron HCl (Zofran) 4 mg Q6H PRN IVP Nausea & Vomiting 01/02/19 08:00 01/29/19 07:59 Polyethylene Glycol (Miralax) 17 gm HSPRN PRN ORAL Constipation 01/02/19 21:00 02/01/19 20:59 Temazepam (Restoril) 15 mg HSPRN PRN ORAL Insomnia 01/08/19 21:00 01/15/19 20:59 Allergies: Coded Allergies: No Known Allergies (Unverified , 12/29/18) Subjective awake, responsive, denies any abdominal pain , awake, responsive, NAD, Hgb: 15.6. Objective Last Vital Signs Date Time Temp Pulse Resp B/P (MAP) Pulse Ox O2 Delivery O2 Flow Rate FiO2 01/09/19 12:08 168/99 01/09/19 12:00 61 01/09/19 12:00 98.5 18 99 01/08/19 21:00 Room Air Laboratory Tests Test 01/09/19 09:25 White Blood Count 7.0 K/UL (4.8-10.8) Red Blood Count 5.23 M/UL (4.70-6.10) Hemoglobin 15.6 G/DL (14.2-18.0) Hematocrit 49.2 % (42.0-52.0) Mean Corpuscular Volume 94 FL (80-99) Mean Corpuscular Hemoglobin 29.7 PG (27.0-31.0) Mean Corpuscular Hemoglobin Concent 31.6 G/DL (32.0-36.0) L Red Cell Distribution Width 13.0 % (11.6-14.8) Platelet Count 243 K/UL (150-450) Mean Platelet Volume 4.9 FL (6.5-10.1) L Neutrophils (%) (Auto) 64.4 % (45.0-75.0) Lymphocytes (%) (Auto) 21.4 % (20.0-45.0) Monocytes (%) (Auto) 7.2 % (1.0-10.0) Eosinophils (%) (Auto) 5.6 % (0.0-3.0) H Basophils (%) (Auto) 1.4 % (0.0-2.0) Sodium Level 140 MMOL/L (136-145) Potassium Level 3.8 MMOL/L (3.5-5.1) Chloride Level 108 MMOL/L (98-107) H Carbon Dioxide Level 29 MMOL/L (21-32) Anion Gap 3 mmol/L (5-15) L Blood Urea Nitrogen 5 mg/dL (7-18) L Creatinine 0.9 MG/DL (0.55-1.30) Estimat Glomerular Filtration Rate > 60 mL/min (>60) Glucose Level 78 MG/DL (74-106) Calcium Level 9.1 MG/DL (8.5-10.1) Intake and Output 01/08/19 01/09/19 19:00 07:00 Intake Total 840 ml Output Total 1200 ml Balance -360 ml Intake Oral 390 ml IV Total 450 ml Output Urine Total 1200 ml # Voids 2 Objective General: No acute distress, awake and responsive HEENT: NCAT, sclera anicteric, PERRL, EOMI, Neck: Supple, no significant jugular venous distention, Lungs: fair inspiratory effort, , decrease air at bases,no Wheeze or Rales. Heart: Regular rate and rhythm, normal S1/S2, no murmur. Abdomen: soft, nontender, nondistended. Normoactive bowel sounds, obesity, : Rodriguez cath. Extremities: No Cyanosis , clubbing or edema. Neuro: CN 2-12 intact, not verbal minimal extremities movement. Skin: warm, no rash. Assessment/Plan Assessment/Plan 1. Rectal bleeding / Gastrointestinal hemorrhage. 2. Hypertension. 3. Hypercholesterolemia. 4. Cerebrovascular disease. 5. Hemiplegia. 6. Aphasia. 7. Elevated troponin. TREATMENT: 1. Gastrointestinal hemorrhage. A Gastroenterology consultation has been obtained with Dr. Bib Banegas. We will follow recommendations of Gastroenterology. 2. Hypertension. Continue enalapril and diltiazem as above. Continue metoprolol as above. 3. Hypercholesterolemia. Continue atorvastatin as above. 4. Cerebrovascular disease/hemiplegia/aphasia. Hold aspirin for now due to gastrointestinal hemorrhage. 5. Elevated troponin. A Cardiology consultation with Dr. Aguilar. For EGD soon H/H stable. Ted Dunn MD Jan 09, 2019 15:17
[2019-01-09] MEDS ORDERED: D5NS 1000ml IV ONE (16:21)
--- NOTE | 2019-01-09 19:30 | NUR ---
NURSE NOTES: Received patient from REJI Babin, patient in stable condition,AOx1, no distress, VSS, IV site on R forearm , asymptomatic, patent, intact, non verbal, not able to make needs known, Flacc scale assessed , no pain at this time, bed low&locked, call light within reach, side rails upx3, will continue to monitor and reassess.
--- NOTE | 2019-01-09 19:32 | NUR ---
HAND-OFF: Report given to Yana/RN, Patient is in stable condition. Endorsed plan of care.
[2019-01-09] MEDS: Atorvastatin 20mg tab ORAL SCH (21:00)
[2019-01-10] VITALS (11 sets, daily range): BP systolic 123–167; BP diastolic 79–107
[2019-01-10] MEDS: D5NS 1,000 ML IV SCH ×2 (01:52→22:35)
--- NOTE | 2019-01-10 07:20 | NUR ---
NURSE NOTES: Received patient from REJI Garnett. Patient is AAOx1. Patient is sleeping in bed and awaken by name. Patient is breathing on room air. Patient is on media monitor. IV site on right forearm , asymptomatic, patent, intact. Patient is non verbal, not able to make needs known, Flacc scale assessed , no pain at this time. Bed low&locked, call light within reach, side rails upx3, and bed alarm on. Will continue to monitor and reassess.
[2019-01-10 07:27] LABS: BASOPHILS % (AUTO) 0.8 % (0.0-2.0); EOSINOPHILS % (AUTO) 7.3 % (0.0-3.0); HEMATOCRIT 39.4 % (42.0-52.0); HEMOGLOBIN 12.8 G/DL (14.2-18.0); LYMPHOCYTES % (AUTO) 22.1 % (20.0-45.0); MEAN CORPUSCULAR VOLUME 93 FL (80-99); MONOCYTES % (AUTO) 10.2 % (1.0-10.0); NEUTROPHILS % (AUTO) 59.6 % (45.0-75.0); PLATELET COUNT 244 K/UL (150-450); RED BLOOD COUNT 4.22 M/UL (4.70-6.10); RED CELL DISTRIBUTION WIDTH 13.1 % (11.6-14.8); WHITE BLOOD COUNT 6.4 K/UL (4.8-10.8)
[2019-01-10 07:28] LABS: ANION GAP 6 mmol/L (5-15); BLOOD UREA NITROGEN 6 mg/dL (7-18); CALCIUM 8.6 MG/DL (8.5-10.1); CARBON DIOXIDE 28 MMOL/L (21-32); CHLORIDE 111 MMOL/L (98-107); POTASSIUM 3.5 MMOL/L (3.5-5.1); SODIUM 145 MMOL/L (136-145)
[2019-01-10] MEDS ORDERED: Atropine Inj 1mg/10ml Syr IV PRN (08:15)
[2019-01-10] MEDS ORDERED: Midazolam 2mg/2ml Inj IVP PRN (08:15)
[2019-01-10] MEDS ORDERED: DiphenhydrAMINE 50mg/ml Inj IVP PRN (08:15)
[2019-01-10] MEDS ORDERED: fentaNYL 100 mcg/2 mL IV PRN (08:15)
--- NOTE | 2019-01-10 08:15 | NUR ---
NURSE NOTES: Notified of blood pressure of 167/104. Called GI LAB and left a message. Called Dr. Monaco at 8:19am for orders for possible blood pressure medications to be given intravenous. Awaiting call back.
[2019-01-10] MEDS: HydrALAZINE 25mg tab ORAL SCH ×3 (09:00→17:15)
[2019-01-10] MEDS: Metoprolol 25mg tab ORAL SCH ×2 (09:00→21:57)
--- NOTE | 2019-01-10 09:00 | NUR ---
NURSE NOTES: Called GI LAB again regarding elevated blood pressure. Message will be passed to Dr. Banegas.
--- NOTE | 2019-01-10 09:07 | NUR ---
NURSE NOTES: Spoke with Dr. Banegas. Order received.
--- NOTE | 2019-01-10 10:09 | General Progress Note ---
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 Cardiology has now cleared patient for procedure. scheduled patient for EGD for today ppi prn transfusion Subjective Allergies: Coded Allergies: No Known Allergies (Unverified , 12/29/18) Subjective black tarry stool Objective Last 24 Hour Vital Signs Date Time Temp Pulse Resp B/P (MAP) Pulse Ox O2 Delivery O2 Flow Rate FiO2 01/10/19 09:50 177/98 01/10/19 09:00 167/104 01/10/19 09:00 68 167/104 01/10/19 08:00 97.5 68 18 167/104 (125) 96 01/10/19 04:00 71 01/10/19 04:00 97.5 79 18 123/96 (105) 96 01/10/19 00:00 97.7 66 17 144/81 (102) 100 01/10/19 00:00 58 01/09/19 21:00 77 141/80 01/09/19 21:00 Room Air 01/09/19 20:00 98.2 77 18 141/80 (100) 97 01/09/19 20:00 79 01/09/19 17:23 141/82 01/09/19 16:00 98.1 78 18 141/82 (101) 98 01/09/19 16:00 70 01/09/19 12:08 168/99 01/09/19 12:08 168/99 01/09/19 12:00 61 01/09/19 12:00 98.5 18 168/99 (122) 99 Intake and Output 01/09/19 01/10/19 19:00 07:00 Intake Total 1020 ml Output Total 400 ml 100 ml Balance 620 ml -100 ml Intake Oral 420 ml IV Total 600 ml Output Urine Total 400 ml 100 ml # Voids 1 1 Laboratory Tests 01/10/19 06:28: White Blood Count 6.4, Red Blood Count 4.22L, Hemoglobin 12.8L, Hematocrit 39.4L , Mean Corpuscular Volume 93, Mean Corpuscular Hemoglobin 30.3, Mean Corpuscular Hemoglobin Concent 32.5, Red Cell Distribution Width 13.1, Platelet Count 244, Mean Platelet Volume 5.7L, Neutrophils (%) (Auto) 59.6, Lymphocytes ( %) (Auto) 22.1, Monocytes (%) (Auto) 10.2H, Eosinophils (%) (Auto) 7.3H, Basophils (%) (Auto) 0.8, Sodium Level 145, Potassium Level 3.5, Chloride Level 111H, Carbon Dioxide Level 28, Anion Gap 6, Blood Urea Nitrogen 6L, Creatinine 1.0, Estimat Glomerular Filtration Rate > 60, Glucose Level 210#H, Calcium Level 8.6 Height (Feet): 5 Height (Inches): 5.00 Weight (Pounds): 152 General Appearance: alert EENT: normal ENT inspection Neck: supple Cardiovascular: normal rate Respiratory/Chest: decreased breath sounds Abdomen: normal bowel sounds, non tender, soft Extremities: non-tender Bib Banegas MD Jan 10, 2019 10:09
--- NOTE | 2019-01-10 10:10 | Pre-Procedure Note/Attestation ---
Pre-Procedure Note/Attestation Complete Prior to Procedure Planned Procedure: not applicable Procedure Narrative: egd Indications for Procedure Pre-Operative Diagnosis: gib Attestation I attest that I discussed the nature of the procedure; its benefits; risks and complications; and alternatives (and the risks and benefits of such alternatives ), prior to the procedure, with the patient (or the patient's legal sales representative health insurance). I attest that, if there was a reasonable possibility of needing a blood transfusion, the patient (or the patient's legal sales representative health insurance) was given the [facility] standardized written summary, pursuant to the Ayaan Reji Blood Safety Act ([place] Health and Safety Code # 1645, as amended). I attest that I re-evaluated the patient just prior to the surgery and that there has been no change in the patient's H&P, except as documented below: Bib Banegas MD Jan 10, 2019 10:09
--- NOTE | 2019-01-10 10:59 | Pulmonology Progress Note ---
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 Assessment/Plan BP fluctuates h/h stable still waiting for EGD to be done, probably today. iv fluids check electrolytes f/u cardiology recommendations Subjective ROS Limited/Unobtainable: Yes Interval Events: awake Allergies: Coded Allergies: No Known Allergies (Unverified , 12/29/18) Objective Last 24 Hour Vital Signs Date Time Temp Pulse Resp B/P (MAP) Pulse Ox O2 Delivery O2 Flow Rate FiO2 01/10/19 09:50 177/98 01/10/19 09:00 167/104 01/10/19 09:00 68 167/104 01/10/19 08:00 97.5 68 18 167/104 (125) 96 01/10/19 04:00 71 01/10/19 04:00 97.5 79 18 123/96 (105) 96 01/10/19 00:00 97.7 66 17 144/81 (102) 100 01/10/19 00:00 58 01/09/19 21:00 77 141/80 01/09/19 21:00 Room Air 01/09/19 20:00 98.2 77 18 141/80 (100) 97 01/09/19 20:00 79 01/09/19 17:23 141/82 01/09/19 16:00 98.1 78 18 141/82 (101) 98 01/09/19 16:00 70 01/09/19 12:08 168/99 01/09/19 12:08 168/99 01/09/19 12:00 61 01/09/19 12:00 98.5 18 168/99 (122) 99 Intake and Output 01/09/19 01/10/19 19:00 07:00 Intake Total 1020 ml Output Total 400 ml 100 ml Balance 620 ml -100 ml Intake Oral 420 ml IV Total 600 ml Output Urine Total 400 ml 100 ml # Voids 1 1 General Appearance: WD/WN HEENT: normocephalic, atraumatic Respiratory/Chest: chest wall non-tender, lungs clear Cardiovascular: normal peripheral pulses, normal rate Abdomen: normal bowel sounds, soft, non tender, no scars Extremities: no cyanosis Skin: no rash 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 Laboratory Tests 01/10/19 06:28: White Blood Count 6.4, Red Blood Count 4.22L, Hemoglobin 12.8L, Hematocrit 39.4L , Mean Corpuscular Volume 93, Mean Corpuscular Hemoglobin 30.3, Mean Corpuscular Hemoglobin Concent 32.5, Red Cell Distribution Width 13.1, Platelet Count 244, Mean Platelet Volume 5.7L, Neutrophils (%) (Auto) 59.6, Lymphocytes ( %) (Auto) 22.1, Monocytes (%) (Auto) 10.2H, Eosinophils (%) (Auto) 7.3H, Basophils (%) (Auto) 0.8, Sodium Level 145, Potassium Level 3.5, Chloride Level 111H, Carbon Dioxide Level 28, Anion Gap 6, Blood Urea Nitrogen 6L, Creatinine 1.0, Estimat Glomerular Filtration Rate > 60, Glucose Level 210#H, Calcium Level 8.6 Current Medications Medications (Trade) Dose Ordered Sig/Barby Route PRN Reason Start Time Stop Time Status Last Admin Dose Admin Acetaminophen (Tylenol) 650 mg Q4H PRN ORAL T>100.5 01/02/19 08:00 01/29/19 07:59 Acetaminophen (Tylenol) 650 mg Q4H PRN ORAL Mild Pain (Pain Scale 1-3) 01/10/19 08:15 01/10/19 17:00 Al Hydroxide/Mg Hydroxide (Mylanta) 15 ml Q1H PRN ORAL gi upset 01/10/19 08:15 01/10/19 17:00 Atorvastatin Calcium (Lipitor) 20 mg BEDTIME ORAL 01/02/19 21:00 01/30/19 20:59 01/09/19 21:00 Atropine Sulfate (Atropine) 0.5 mg Q5M PRN IV bpm less than 45 01/10/19 08:15 01/10/19 17:00 Clonidine HCl (Catapres Tab) 0.1 mg Q6H PRN ORAL For High Blood Pressure 01/09/19 07:15 02/08/19 07:14 01/09/19 12:08 Dextrose (Dextrose 50%) 25 ml Q30M PRN IV Hypoglycemia 01/02/19 07:30 01/29/19 00:59 Dextrose (Dextrose 50%) 50 ml Q30M PRN IV Hypoglycemia 01/02/19 07:30 01/29/19 00:59 Dextrose/Sodium Chloride 1,000 ml @ 50 mls/hr Q20H IV 01/08/19 10:00 02/06/19 09:59 01/10/19 01:52 Diphenhydramine HCl (Benadryl) 25 mg Q15M PRN IVP Itching 01/10/19 08:15 01/10/19 17:00 Diphenhydramine HCl (Benadryl) 25 mg Q6H PRN ORAL Itching/Pruritis 01/02/19 07:30 01/29/19 07:29 01/03/19 23:14 Fentanyl Citrate (Sublimaze 100 mcg/2 mL) 25 mcg Q10M PRN IV Moderate Pain (Pain Scale 4-6) 01/10/19 08:15 01/10/19 17:00 Hydralazine HCl (Apresoline) 5 mg Q30M PRN IV SBP>160 OR___/DBP>90 OR___ 01/10/19 08:15 01/10/19 17:00 Hydralazine HCl (Apresoline) 10 mg ONCE IV 01/10/19 09:28 01/10/19 11:00 01/10/19 09:50 Hydralazine HCl (Apresoline) 10 mg ONCE IV 01/10/19 11:00 01/10/19 12:30 Hydralazine HCl (Apresoline) 25 mg Q6H PRN ORAL sbp above 160 01/08/19 09:15 02/07/19 08:45 01/09/19 06:36 Hydralazine HCl (Apresoline) 25 mg TID ORAL 01/09/19 09:45 02/08/19 09:44 01/09/19 17:23 Lansoprazole (Prevacid) 30 mg BIAC ORAL 01/04/19 20:00 02/03/19 19:59 01/09/19 17:23 Metoprolol Tartrate (Lopressor) 75 mg Q12HR ORAL 01/08/19 09:00 01/30/19 20:59 01/09/19 21:00 Midazolam HCl (Versed 2mg/2ml vial) 1 mg Q15M PRN IVP For Anxiety 01/10/19 08:15 01/10/19 17:00 Nitroglycerin (Ntg) 0.4 mg Q5M X 3 DOSES PRN SL Prn Chest Pain 01/02/19 07:15 01/29/19 00:59 Ondansetron HCl (Zofran) 4 mg Q1H PRN IVP Nausea & Vomiting 01/10/19 08:15 01/10/19 17:00 Ondansetron HCl (Zofran) 4 mg Q6H PRN IVP Nausea & Vomiting 01/02/19 08:00 01/29/19 07:59 Polyethylene Glycol (Miralax) 17 gm HSPRN PRN ORAL Constipation 01/02/19 21:00 02/01/19 20:59 Temazepam (Restoril) 15 mg HSPRN PRN ORAL Insomnia 01/08/19 21:00 01/15/19 20:59 Joy Huertas MD Jan 10, 2019 10:59
--- NOTE | 2019-01-10 11:30 | NUR ---
NURSE NOTES: 10:30- Patient blood pressure is 150/114. Notified GI LAB, will be rechecked. 11:00- Blood pressure is 163/78. Spoke with Dr. Banegas. Received order. 11:30am- Blood pressure is 163/80. Notified GI lab. Explained that patient keeps moving his left arm and keeps bending his left arm.
--- NOTE | 2019-01-10 11:39 | Anethesia Preoperative Eval ---
Anesthesia Pre-op PMH/ROS General Date of Evaluation: Jan 10, 2019 Time of Evaluation: 11:36 Anesthesiologist: jayashree ASA Score: ASA 3 Mallampati Score Class I : Soft palate, uvula, fauces, pillars visible Class II: Soft palate, uvula, fauces visible Class III: Soft palate, base of uvula visible Class IV: Only hard plate visible Mallampati Classification: Class II Surgeon: bayron Diagnosis: gi bleed Surgical Procedure: egd w/bx Anesthesia History: none Social History: smoking - nonsmoker Family History: no anesthesia problems Allergies: Coded Allergies: No Known Allergies (Unverified , 12/29/18) Medications: see eMAR Patient NPO?: Yes NPO Date: Jan 04, 2019 NPO Time: 22:00 Past Medical History Cardiovascular: Reports: HTN Neurologic/Psychiatric: Reports: CVA, other - hemiplegia, aphasia, psychosis Anesthesia Pre-op Phys. Exam Physician Exam Last Vital Signs Date Time Temp Pulse Resp B/P (MAP) Pulse Ox O2 Delivery O2 Flow Rate FiO2 01/10/19 11:05 162/79 01/10/19 09:00 68 01/10/19 08:00 97.5 18 96 01/09/19 21:00 Room Air Constitutional: NAD Neurologic: other - cva Cardiovascular: other - tachycardia Respiratory: CTA Gastrointestinal: S/NT/ND Airway Exam Mallampati Score: Class II MO: limited Neck: flexible TMD: 2fb ROM: limited Teeth: missing Anesthesia Pre-op A/P Labs Hematology Test 01/10/19 06:28 White Blood Count 6.4 K/UL (4.8-10.8) Red Blood Count 4.22 M/UL (4.70-6.10) L Hemoglobin 12.8 G/DL (14.2-18.0) L Hematocrit 39.4 % (42.0-52.0) L Mean Corpuscular Volume 93 FL (80-99) Mean Corpuscular Hemoglobin 30.3 PG (27.0-31.0) Mean Corpuscular Hemoglobin Concent 32.5 G/DL (32.0-36.0) Red Cell Distribution Width 13.1 % (11.6-14.8) Platelet Count 244 K/UL (150-450) Mean Platelet Volume 5.7 FL (6.5-10.1) L Neutrophils (%) (Auto) 59.6 % (45.0-75.0) Lymphocytes (%) (Auto) 22.1 % (20.0-45.0) Monocytes (%) (Auto) 10.2 % (1.0-10.0) H Eosinophils (%) (Auto) 7.3 % (0.0-3.0) H Basophils (%) (Auto) 0.8 % (0.0-2.0) Chemistry Test 01/10/19 06:28 Sodium Level 145 MMOL/L (136-145) Potassium Level 3.5 MMOL/L (3.5-5.1) Chloride Level 111 MMOL/L (98-107) H Carbon Dioxide Level 28 MMOL/L (21-32) Anion Gap 6 mmol/L (5-15) Blood Urea Nitrogen 6 mg/dL (7-18) L Creatinine 1.0 MG/DL (0.55-1.30) Estimat Glomerular Filtration Rate > 60 mL/min (>60) Glucose Level 210 MG/DL (74-106) #H Calcium Level 8.6 MG/DL (8.5-10.1) Risk Assessment & Plan Assessment: asa3 Plan: mac Status Change Before Surgery: Yes - tachycardia Pre-Antibiotics Drug: Angeli Hughes MD Jan 10, 2019 11:39
[2019-01-10] MEDS ORDERED: Esmolol 100mg/10ml Inj ONE (12:30)
[2019-01-10] MEDS ORDERED: Lidocaine 1% MPF 10mg/ml 5ml ONE (12:30)
[2019-01-10] MEDS ORDERED: Propofol 200mg/20ml IV ONE (12:30)
--- NOTE | 2019-01-10 12:30 | NUR ---
NURSE NOTES: Patient left for GI lab at 12:30pm.
--- NOTE | 2019-01-10 12:56 | Endoscopy Procedure Note ---
Endoscopy Procedure Note General Indication for Procedure: GIB Procedures Performed: EGD Operative Findings/Diagnosis: gastritis Specimen: yes Pt Tolerated Procedure Well: Yes Estimated Blood Loss: none Anesthesia Anesthesiologist: jayashree Anesthesia: MAC Inserted Devices Implant(s) used?: No GI Core Measures 50 yrs or older w/o bx or poly: Not Applicable 10yrs. F/U recommended: Not Applicable Bib Banegas MD Jan 10, 2019 12:56
--- NOTE | 2019-01-10 13:26 | Immediate Post-Op Evaluation ---
Immediate Post-Op Evalulation Immediate Post-Op Evalulation Procedure: egd w/bx Date of Evaluation: Jan 10, 2019 Time of Evaluation: 13:21 IV Fluids: 100ml 0.9ns Blood Products: none Estimated Blood Loss: negligible Blood Pressure Systolic: 149 Blood Pressure Diastolic: 107 Pulse Rate: 100 Respiratory Rate: 18 O2 Sat by Pulse Oximetry: 100 Temperature (Fahrenheit): 98.1 Pain Score (1-10): 0 Nausea: No Vomiting: No Complications none Patient Status: awake, reacts, patent Hydration Status: adequate Drug: Angeli Hughes MD Jan 10, 2019 13:26
--- NOTE | 2019-01-10 13:28 | 48 Hour Post Anesthesia Eval ---
Post Anesthesia Evaluation Procedure: egd w/bx Date of Evaluation: Jan 10, 2019 Time of Evaluation: 13:26 Blood Pressure Systolic: 138 0: 99 Pulse Rate: 108 Respiratory Rate: 18 Temperature (Fahrenheit): 98.1 O2 Sat by Pulse Oximetry: 100 Airway: patent Nausea: No Vomiting: No Pain Intensity: 0 Hydration Status: adequate Cardiopulmonary Status: stable Mental Status/LOC: patient returned to baseline Post-Anesthesia Complications: none Follow-up care needed: N/A Angeli Nogueira MD Jan 10, 2019 13:28
[2019-01-10] MEDS ORDERED: NS 500ML IVPB ONE (13:40)
--- NOTE | 2019-01-10 14:41 | Cardiac Electrophysiology PN ---
Assessment/Plan Assessment/Plan 1. Troponin elevation. The levels are flat 0.13, 0.14, 0.14. The patient denies any CP or SOB. His 12-lead EKG showed sinus rhythm with left ventricular hypertrophy with nonspecific ST-T wave abnormality. We will treat the patient medically with beta-anderson and statin. Off aspirin for GI bleed Nuclear stress test cancelled by Dr Santana for AMS 2. Hypertension. On metoprolol 75 mg bid and Hydralazine 25 tid 3. GI bleed. The patient's hemoglobin is stable at around 14. EGD per Dr Banegas today showed gastritis DW RN Subjective Subjective No CP or SOB. BP was high and received Clonidine. Had EGD today that showed Gastritis Objective Last 24 Hour Vital Signs Date Time Temp Pulse Resp B/P (MAP) Pulse Ox O2 Delivery O2 Flow Rate FiO2 01/10/19 13:49 102 24 143/84 100 Nasal Cannula 3 01/10/19 13:34 106 24 144/94 100 Nasal Cannula 3 01/10/19 13:28 108 18 100 01/10/19 13:26 100 18 100 01/10/19 13:19 109 24 162/104 100 Nasal Cannula 3 01/10/19 13:14 107 24 163/104 100 Nasal Cannula 3 01/10/19 13:09 98.2 107 24 149/107 100 Nasal Cannula 3 01/10/19 12:00 97.5 99 20 162/79 (106) 95 01/10/19 11:05 162/79 01/10/19 09:50 177/98 01/10/19 09:00 167/104 01/10/19 09:00 68 167/104 01/10/19 08:00 97.5 68 18 167/104 (125) 96 01/10/19 07:34 59 01/10/19 04:00 71 01/10/19 04:00 97.5 79 18 123/96 (105) 96 01/10/19 00:00 97.7 66 17 144/81 (102) 100 01/10/19 00:00 58 01/09/19 21:00 77 141/80 01/09/19 21:00 Room Air 01/09/19 20:00 98.2 77 18 141/80 (100) 97 01/09/19 20:00 79 8/18/19 17:23 141/82 01/09/19 16:00 98.1 78 18 141/82 (101) 98 01/09/19 16:00 70 Intake and Output 01/09/19 01/10/19 19:00 07:00 Intake Total 1020 ml Output Total 400 ml 100 ml Balance 620 ml -100 ml Intake Oral 420 ml IV Total 600 ml Output Urine Total 400 ml 100 ml # Voids 1 1 Laboratory Tests Test 01/10/19 06:28 White Blood Count 6.4 K/UL (4.8-10.8) Red Blood Count 4.22 M/UL (4.70-6.10) L Hemoglobin 12.8 G/DL (14.2-18.0) L Hematocrit 39.4 % (42.0-52.0) L Mean Corpuscular Volume 93 FL (80-99) Mean Corpuscular Hemoglobin 30.3 PG (27.0-31.0) Mean Corpuscular Hemoglobin Concent 32.5 G/DL (32.0-36.0) Red Cell Distribution Width 13.1 % (11.6-14.8) Platelet Count 244 K/UL (150-450) Mean Platelet Volume 5.7 FL (6.5-10.1) L Neutrophils (%) (Auto) 59.6 % (45.0-75.0) Lymphocytes (%) (Auto) 22.1 % (20.0-45.0) Monocytes (%) (Auto) 10.2 % (1.0-10.0) H Eosinophils (%) (Auto) 7.3 % (0.0-3.0) H Basophils (%) (Auto) 0.8 % (0.0-2.0) Sodium Level 145 MMOL/L (136-145) Potassium Level 3.5 MMOL/L (3.5-5.1) Chloride Level 111 MMOL/L (98-107) H Carbon Dioxide Level 28 MMOL/L (21-32) Anion Gap 6 mmol/L (5-15) Blood Urea Nitrogen 6 mg/dL (7-18) L Creatinine 1.0 MG/DL (0.55-1.30) Estimat Glomerular Filtration Rate > 60 mL/min (>60) Glucose Level 210 MG/DL (74-106) #H Calcium Level 8.6 MG/DL (8.5-10.1) Objective HEAD AND NECK: showed no JVD. LUNGS: Clear. CARDIOVASCULAR: Shows regular S1 and S2 with no gallop. ABDOMEN: Soft. EXTREMITIES: No pitting edema. Juan Carlos Aguilar MD Jan 10, 2019 14:41
--- NOTE | 2019-01-10 15:00 | NUR ---
NURSE NOTES: Patient arrived from GI Lab. Procedure note placed in chart. Patient has gastritis. Will continue to monitor.
--- NOTE | 2019-01-10 15:06 | NUR ---
CASE MANAGEMENT:REVIEW 01/08/19 SI:RECTAL/GI BLEED HTN. ELEVATED TROPONIN 97.3 58 19 162/105 97% ON RA IS: IV ATIVAN X1 IVF@75/HR IV ZOFRAN Q6HRS PRN PREVACID PO BID AC LOPRESSOR PO Q12 HYDRALAZINE PO Q6HRS PRN SBP>160 : TELEMETRY STATUS PLAN: EGD CANCELLED BY ANESTHESIA D/T ABNORMAL EKG 01/09/19 SI:RECTAL/GI BLEED HTN. ELEVATED TROPONIN 98.5 82 22 205/127 98% ON RA IS: IVF@75/HR IV ZOFRAN Q6HRS PRN PREVACID PO BID AC LOPRESSOR PO Q12 HYDRALAZINE PO Q6HRS PRN SBP>160 CLONIDINE PO Q6HRS PRN : TELEMETRY STATUS 01/10/19 SI:RECTAL/GI BLEED HTN. ELEVATED TROPONIN 97.5 68 18 167/104 96% ON RA GLUCOSE+210 IS: IV HYDRALAZINE X2 IVF@50/HR IV ZOFRAN Q6HRS PRN PREVACID PO BID AC LOPRESSOR PO Q12 HYDRALAZINE PO Q6HRS PRN SBP>160 CLONIDINE PO Q6HRS PRN : TELEMETRY STATUS PLAN: EGD WITH BIOPSY TODAY
--- NOTE | 2019-01-10 18:45 | Procedure Note ---
DATE OF PROCEDURE: 01/10/2019 SURGEON: Bib Banegas M.D. PROCEDURE: Upper endoscopy with biopsy. ANESTHESIA: Per Alicia DELACRUZ. INSTRUMENT: Olympus adult flexible upper endoscope. INDICATION: Upper GI bleeding. REASON FOR PROCEDURE: The procedure, risks, benefits, and possible consequences, including hemorrhage, aspiration, perforation and infection, and alternative treatments, were explained to the patient/legal guardian by Dr. Bib Banegas and the patient/legal guardian understood and accepted these risks. PROCEDURE IN DETAIL: After informed consent was obtained, the patient was adequately sedated, Olympus upper endoscope was advanced from mouth into the second portion of the duodenum and retroflexion was performed in the stomach. The patient had evidence of diffuse gastritis. Random biopsy from antrum of the stomach was obtained to rule out H. pylori infection. GE junction was found to be about 40 cm from the incisors. There was evidence of small hiatal hernia without any esophagitis or esophageal mass. The patient tolerated the procedure very well without any complication. SUMMARY OF FINDINGS: 1. Gastritis, otherwise normal upper endoscopic examination. 2. Small hiatal hernia. RECOMMENDATION: Follow pathology and treat accordingly. I want to thank, Dr. Dunn, for this kind referral. Bib Banegas M.D. DR: KENNY JOB#: [id number] CC: Ted Dunn M.D.; Fax#: [phone]
--- NOTE | 2019-01-10 18:55 | Internal Med Progress Note ---
Subjective Date of Service: Jan 10, 2019 Physician Name Nicholas Chandler Attending Physician Ted Dunn MD Current Medications Medications (Trade) Dose Ordered Sig/Barby Route PRN Reason Start Time Stop Time Status Last Admin Dose Admin Acetaminophen (Tylenol) 650 mg Q4H PRN ORAL T>100.5 01/02/19 08:00 01/29/19 07:59 Atorvastatin Calcium (Lipitor) 20 mg BEDTIME ORAL 01/02/19 21:00 01/30/19 20:59 01/09/19 21:00 Clonidine HCl (Catapres Tab) 0.1 mg Q6H PRN ORAL For High Blood Pressure 01/09/19 07:15 02/08/19 07:14 01/09/19 12:08 Dextrose (Dextrose 50%) 25 ml Q30M PRN IV Hypoglycemia 01/02/19 07:30 01/29/19 00:59 Dextrose (Dextrose 50%) 50 ml Q30M PRN IV Hypoglycemia 01/02/19 07:30 01/29/19 00:59 Dextrose/Sodium Chloride 1,000 ml @ 50 mls/hr Q20H IV 01/08/19 10:00 02/06/19 09:59 01/10/19 01:52 Diphenhydramine HCl (Benadryl) 25 mg Q6H PRN ORAL Itching/Pruritis 01/02/19 07:30 01/29/19 07:29 01/03/19 23:14 Hydralazine HCl (Apresoline) 25 mg Q6H PRN ORAL sbp above 160 01/08/19 09:15 02/07/19 08:45 01/09/19 06:36 Hydralazine HCl (Apresoline) 25 mg TID ORAL 01/09/19 09:45 02/08/19 09:44 01/10/19 17:15 Lansoprazole (Prevacid) 30 mg BIAC ORAL 01/04/19 20:00 02/03/19 19:59 01/10/19 17:15 Metoprolol Tartrate (Lopressor) 75 mg Q12HR ORAL 01/08/19 09:00 01/30/19 20:59 01/09/19 21:00 Nitroglycerin (Ntg) 0.4 mg Q5M X 3 DOSES PRN SL Prn Chest Pain 01/02/19 07:15 01/29/19 00:59 Ondansetron HCl (Zofran) 4 mg Q6H PRN IVP Nausea & Vomiting 01/02/19 08:00 01/29/19 07:59 Polyethylene Glycol (Miralax) 17 gm HSPRN PRN ORAL Constipation 01/02/19 21:00 02/01/19 20:59 Temazepam (Restoril) 15 mg HSPRN PRN ORAL Insomnia 01/08/19 21:00 01/15/19 20:59 Allergies: Coded Allergies: No Known Allergies (Unverified , 12/29/18) Subjective 68 YO M admitted with Gastrointestinal hemorrhage. Cover for Int Med-DR Dunn. S/P endoscopy 01/10/19 Objective Last Vital Signs Date Time Temp Pulse Resp B/P (MAP) Pulse Ox O2 Delivery O2 Flow Rate FiO2 01/10/19 17:15 156/99 01/10/19 16:00 98.1 109 20 98 01/10/19 13:49 Nasal Cannula 3 Laboratory Tests Test 01/10/19 06:28 White Blood Count 6.4 K/UL (4.8-10.8) Red Blood Count 4.22 M/UL (4.70-6.10) L Hemoglobin 12.8 G/DL (14.2-18.0) L Hematocrit 39.4 % (42.0-52.0) L Mean Corpuscular Volume 93 FL (80-99) Mean Corpuscular Hemoglobin 30.3 PG (27.0-31.0) Mean Corpuscular Hemoglobin Concent 32.5 G/DL (32.0-36.0) Red Cell Distribution Width 13.1 % (11.6-14.8) Platelet Count 244 K/UL (150-450) Mean Platelet Volume 5.7 FL (6.5-10.1) L Neutrophils (%) (Auto) 59.6 % (45.0-75.0) Lymphocytes (%) (Auto) 22.1 % (20.0-45.0) Monocytes (%) (Auto) 10.2 % (1.0-10.0) H Eosinophils (%) (Auto) 7.3 % (0.0-3.0) H Basophils (%) (Auto) 0.8 % (0.0-2.0) Sodium Level 145 MMOL/L (136-145) Potassium Level 3.5 MMOL/L (3.5-5.1) Chloride Level 111 MMOL/L (98-107) H Carbon Dioxide Level 28 MMOL/L (21-32) Anion Gap 6 mmol/L (5-15) Blood Urea Nitrogen 6 mg/dL (7-18) L Creatinine 1.0 MG/DL (0.55-1.30) Estimat Glomerular Filtration Rate > 60 mL/min (>60) Glucose Level 210 MG/DL (74-106) #H Calcium Level 8.6 MG/DL (8.5-10.1) Intake and Output 01/09/19 01/10/19 19:00 07:00 Intake Total 1020 ml Output Total 400 ml 100 ml Balance 620 ml -100 ml Intake Oral 420 ml IV Total 600 ml Output Urine Total 400 ml 100 ml # Voids 1 1 Objective PHYSICAL EXAMINATION: GENERALLY: The patient is a well-developed and well-nourished female, in no apparent distress. HEENT: Eyes, pupils are equal and responsive to light and accommodation. Extraocular movements are intact. NECK: Supple without lymphadenopathy. CHEST: Lungs are clear to auscultation bilaterally without wheezes or rales. CARDIOVASCULAR: Regular rhythm and rate. S1 and S2 are normal without murmurs, rubs, or gallops. ABDOMEN: Soft, nontender, and nondistended. Positive bowel sounds. No evidence of hepatosplenomegaly. Currently, no rebound or guarding noted. EXTREMITIES: Negative for clubbing, cyanosis, or edema. RECTAL/GENITAL: Not performed. NEUROLOGIC: Cranial nerves II through XII are grossly intact. Assessment/Plan Assessment/Plan ASSESSMENT: This is a 68-year-old male. 1. Gastrointestinal hemorrhage. 2. Hypertension. 3. Hypercholesterolemia. 4. Cerebrovascular disease. 5. Hemiplegia. 6. Aphasia. 7. Elevated troponin. 8. Gastritis TREATMENT: 1. Gastrointestinal hemorrhage. A Gastroenterology consultation has been obtained with Dr. Bib Banegas. S/P endoscopy 01/10/19=Gastritis 2. Hypertension. Continue enalapril and diltiazem as above. Continue metoprolol as above. 3. Hypercholesterolemia. Continue atorvastatin as above. 4. Cerebrovascular disease/hemiplegia/aphasia. Hold aspirin for now due to gastrointestinal hemorrhage. 5. Elevated troponin. A Cardiology consultation=Dr Aguilar. Nicholas Chandler MD Jan 10, 2019 18:55
--- NOTE | 2019-01-10 19:15 | NUR ---
NURSE NOTES: Received pt and report from REJI Diamond. Observed pt resting in bed with both eyes open. Pt is A/O x1. panel monitor is in placed, IV site intact, asymptomatic and patent; currently running D5 NS @ 50cc/hr. Bed is in the lowest position and locked. Call light within reach. No signs/symptoms of acute distress noted at this time. Will continue plan of care.
--- NOTE | 2019-01-10 19:25 | NUR ---
HAND-OFF: Report given to REJI Pires. IV on left hand was infiltrated and removed. Patient was repositioned. Condom catheter is intact and patent.
[2019-01-10] MEDS: Atorvastatin 20mg tab ORAL SCH (21:55)
[2019-01-11] VITALS (14 sets, daily range): BP systolic 151–183; BP diastolic 86–105
[2019-01-11] MEDS: HydrALAZINE 25mg tab ORAL PRN (01:22)
[2019-01-11 07:24] LABS: EOSINOPHILS % (AUTO) 4.2 % (0.0-3.0); HEMATOCRIT 41.2 % (42.0-52.0); HEMOGLOBIN 13.5 G/DL (14.2-18.0); LYMPHOCYTES % (AUTO) 22.1 % (20.0-45.0); MEAN CORPUSCULAR VOLUME 93 FL (80-99); MONOCYTES % (AUTO) 11.1 % (1.0-10.0); NEUTROPHILS % (AUTO) 61.6 % (45.0-75.0); PLATELET COUNT 268 K/UL (150-450); RED BLOOD COUNT 4.44 M/UL (4.70-6.10); RED CELL DISTRIBUTION WIDTH 12.9 % (11.6-14.8); WHITE BLOOD COUNT 6.4 K/UL (4.8-10.8)
[2019-01-11 07:30] LABS: ANION GAP 7 mmol/L (5-15); BLOOD UREA NITROGEN 9 mg/dL (7-18); CALCIUM 8.9 MG/DL (8.5-10.1); CARBON DIOXIDE 26 MMOL/L (21-32); CHLORIDE 108 MMOL/L (98-107); CREATININE 0.9 MG/DL (0.55-1.30); POTASSIUM 3.4 MMOL/L (3.5-5.1); SODIUM 141 MMOL/L (136-145)
--- NOTE | 2019-01-11 08:03 | NUR ---
HAND-OFF: Report given to REJI Longoria.
[2019-01-11] MEDS: HydrALAZINE 25mg tab ORAL SCH (09:31)
[2019-01-11] MEDS: Metoprolol 25mg tab ORAL SCH (09:31)
--- NOTE | 2019-01-11 10:18 | GI Progress Note ---
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 ICD Codes: I69.359 - Hemiplegia and hemiparesis following cerebral infarction affecting unspecified side SNOMED: 095761543 (3) History of CVA (cerebrovascular accident) ICD Codes: Z86.73 - Personal history of transient ischemic attack (TIA), and cerebral infarction without residual deficits SNOMED: 516702390 (4) Essential hypertension ICD Codes: I10 - Essential (primary) hypertension SNOMED: 39522538 (5) GI bleed ICD Codes: K92.2 - Gastrointestinal hemorrhage, unspecified SNOMED: 51033838 (6) Elevated troponin ICD Codes: R74.8 - Abnormal levels of other serum enzymes SNOMED: 926180299, 661488825, 847361949 Status: stable Status Narrative Discussed with Dr. Banegas. Assessment/Plan SUMMARY OF FINDINGS: 1. Gastritis, otherwise normal upper endoscopic examination. 2. Small hiatal hernia. RECOMMENDATION: Follow pathology and treat accordingly. fu labs ppi prn transfusions dc planning The patient was seen and examined at bedside and all new and available data was reviewed in the patients chart. I agree with the above findings, impression and plan. (Patient seen earlier today. Signature stamp does not reflect patient encounter time.). - Bib Banegas MD Subjective Subjective limited Objective Last 24 Hour Vital Signs Date Time Temp Pulse Resp B/P (MAP) Pulse Ox O2 Delivery O2 Flow Rate FiO2 01/11/19 09:31 151/100 01/11/19 09:31 76 151/100 01/11/19 08:00 98.2 76 20 151/100 (117) 98 01/11/19 04:00 97.8 82 20 160/105 (123) 96 01/11/19 04:00 73 01/11/19 02:22 158/98 (118) 01/11/19 01:22 170/103 01/11/19 00:00 97.6 83 18 170/103 (125) 96 01/11/19 00:00 83 01/10/19 21:57 109 161/97 01/10/19 21:00 Room Air 01/10/19 20:00 115 01/10/19 20:00 97.2 109 19 161/97 (118) 95 01/10/19 17:15 156/99 01/10/19 16:00 98.1 109 20 156/99 (118) 98 01/10/19 15:38 104 01/10/19 13:49 97.8 102 24 143/84 100 Nasal Cannula 3 01/10/19 13:34 106 24 144/94 100 Nasal Cannula 3 01/10/19 13:28 108 18 100 01/10/19 13:26 100 18 100 01/10/19 13:19 109 24 162/104 100 Nasal Cannula 3 01/10/19 13:14 107 24 163/104 100 Nasal Cannula 3 01/10/19 13:09 98.2 107 24 149/107 100 Nasal Cannula 3 01/10/19 12:00 97.5 99 20 162/79 (106) 95 01/10/19 11:56 117 01/10/19 11:05 162/79 Intake and Output 01/10/19 01/11/19 19:00 07:00 Intake Total 490 ml 120 ml Output Total 600 ml 300 ml Balance -110 ml -180 ml Intake Oral 240 ml 120 ml IV Total 250 ml Output Urine Total 600 ml 300 ml # Voids 1 Laboratory Tests Test 01/11/19 06:45 White Blood Count 6.4 K/UL (4.8-10.8) Red Blood Count 4.44 M/UL (4.70-6.10) L Hemoglobin 13.5 G/DL (14.2-18.0) L Hematocrit 41.2 % (42.0-52.0) L Mean Corpuscular Volume 93 FL (80-99) Mean Corpuscular Hemoglobin 30.3 PG (27.0-31.0) Mean Corpuscular Hemoglobin Concent 32.7 G/DL (32.0-36.0) Red Cell Distribution Width 12.9 % (11.6-14.8) Platelet Count 268 K/UL (150-450) Mean Platelet Volume 5.1 FL (6.5-10.1) L Neutrophils (%) (Auto) 61.6 % (45.0-75.0) Lymphocytes (%) (Auto) 22.1 % (20.0-45.0) Monocytes (%) (Auto) 11.1 % (1.0-10.0) H Eosinophils (%) (Auto) 4.2 % (0.0-3.0) H Basophils (%) (Auto) 1.0 % (0.0-2.0) Sodium Level 141 MMOL/L (136-145) Potassium Level 3.4 MMOL/L (3.5-5.1) L Chloride Level 108 MMOL/L (98-107) H Carbon Dioxide Level 26 MMOL/L (21-32) Anion Gap 7 mmol/L (5-15) Blood Urea Nitrogen 9 mg/dL (7-18) Creatinine 0.9 MG/DL (0.55-1.30) Estimat Glomerular Filtration Rate > 60 mL/min (>60) Glucose Level 105 MG/DL (74-106) # Calcium Level 8.9 MG/DL (8.5-10.1) Height (Feet): 5 Height (Inches): 4.00 Weight (Pounds): 151 General Appearance: no apparent distress, alert Cardiovascular: normal rate Respiratory/Chest: normal breath sounds, no respiratory distress Abdominal Exam: normal bowel sounds, non tender, soft Extremities: non-tender Heather Gonzalez NP Jan 11, 2019 10:18
--- NOTE | 2019-01-11 11:12 | NUR ---
RD ASSESSMENT & RECOMMENDATIONS SEE CARE ACTIVITY FOR COMPLETE ASSESSMENT DAILY ESTIMATED NEEDS: Needs based on Cardiac, 70kg 25-30 kcals/kg 9247-8961 total kcals 1-1.3 g protein/kg 70-91 g total protein 25-30 mL/kg 4071-4774 total fluid mLs NUTRITION DIAGNOSIS: Swallowing difficulty R/T dyspahgia, h/o CVA as evidenced by STAFF FORESTER recommends pureed moist texture. CURRENT DIET:KARISHMA, pureed moist PO DIET RECOMMENDATIONS: Maintain KARISHMA, texture per STAFF FORESTER ADDITIONAL RECOMMENDATIONS: * Calibrated bedscale wt * Monitor lytes, replete as needed * Consider daily stool softeners: last BM on 01/07 * A1C for eval of glycemic control (BG 210 on 01/10, otherwise wnl) - error on 01/10? monitor BGs closely, need for carb controlled diet * Monitor for continued good appetite.
[2019-01-11] MEDS ORDERED: HYDRALAZINE HCL25 M1 ORAL (11:27)
[2019-01-11] MEDS ORDERED: LOPRESSOR25 M1 ORAL (11:27)
--- NOTE | 2019-01-11 11:28 | Pulmonology Progress Note ---
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 Assessment/Plan h/h stable r EGD showed only gastritis iv fluids check electrolytes dc to alf Subjective ROS Limited/Unobtainable: No Constitutional: Reports: no symptoms HEENT: Repors: no symptoms Respiratory: Reports: no symptoms Allergies: Coded Allergies: No Known Allergies (Unverified , 12/29/18) Objective Last 24 Hour Vital Signs Date Time Temp Pulse Resp B/P (MAP) Pulse Ox O2 Delivery O2 Flow Rate FiO2 01/11/19 09:31 151/100 01/11/19 09:31 76 151/100 01/11/19 08:00 98.2 76 20 151/100 (117) 98 01/11/19 04:00 97.8 82 20 160/105 (123) 96 01/11/19 04:00 73 01/11/19 02:22 158/98 (118) 01/11/19 01:22 170/103 01/11/19 00:00 97.6 83 18 170/103 (125) 96 01/11/19 00:00 83 01/10/19 21:57 109 161/97 01/10/19 21:00 Room Air 01/10/19 20:00 115 01/10/19 20:00 97.2 109 19 161/97 (118) 95 01/10/19 17:15 156/99 01/10/19 16:00 98.1 109 20 156/99 (118) 98 01/10/19 15:38 104 01/10/19 13:49 97.8 102 24 143/84 100 Nasal Cannula 3 01/10/19 13:34 106 24 144/94 100 Nasal Cannula 3 01/10/19 13:28 108 18 100 01/10/19 13:26 100 18 100 01/10/19 13:19 109 24 162/104 100 Nasal Cannula 3 01/10/19 13:14 107 24 163/104 100 Nasal Cannula 3 01/10/19 13:09 98.2 107 24 149/107 100 Nasal Cannula 3 01/10/19 12:00 97.5 99 20 162/79 (106) 95 01/10/19 11:56 117 Intake and Output 01/10/19 01/11/19 19:00 07:00 Intake Total 490 ml 120 ml Output Total 600 ml 300 ml Balance -110 ml -180 ml Intake Oral 240 ml 120 ml IV Total 250 ml Output Urine Total 600 ml 300 ml # Voids 1 General Appearance: WD/WN HEENT: normocephalic, atraumatic Respiratory/Chest: chest wall non-tender, lungs clear Cardiovascular: regular rhythm Abdomen: normal bowel sounds, soft, non tender Genitourinary: normal external genitalia Extremities: no clubbing Skin: no rash 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 Lymphatic: no groin adenopathy Laboratory Tests 01/11/19 06:45: White Blood Count 6.4, Red Blood Count 4.44L, Hemoglobin 13.5L, Hematocrit 41.2L , Mean Corpuscular Volume 93, Mean Corpuscular Hemoglobin 30.3, Mean Corpuscular Hemoglobin Concent 32.7, Red Cell Distribution Width 12.9, Platelet Count 268, Mean Platelet Volume 5.1L, Neutrophils (%) (Auto) 61.6, Lymphocytes ( %) (Auto) 22.1, Monocytes (%) (Auto) 11.1H, Eosinophils (%) (Auto) 4.2H, Basophils (%) (Auto) 1.0, Sodium Level 141, Potassium Level 3.4L, Chloride Level 108H, Carbon Dioxide Level 26, Anion Gap 7, Blood Urea Nitrogen 9, Creatinine 0.9, Estimat Glomerular Filtration Rate > 60, Glucose Level 105#, Calcium Level 8.9 Current Medications Medications (Trade) Dose Ordered Sig/Barby Route PRN Reason Start Time Stop Time Status Last Admin Dose Admin Acetaminophen (Tylenol) 650 mg Q4H PRN ORAL T>100.5 01/02/19 08:00 01/29/19 07:59 Atorvastatin Calcium (Lipitor) 20 mg BEDTIME ORAL 01/02/19 21:00 01/30/19 20:59 01/10/19 21:55 Clonidine HCl (Catapres Tab) 0.1 mg Q6H PRN ORAL For High Blood Pressure 01/09/19 07:15 02/08/19 07:14 01/09/19 12:08 Dextrose (Dextrose 50%) 25 ml Q30M PRN IV Hypoglycemia 01/02/19 07:30 01/29/19 00:59 Dextrose (Dextrose 50%) 50 ml Q30M PRN IV Hypoglycemia 01/02/19 07:30 01/29/19 00:59 Dextrose/Sodium Chloride 1,000 ml @ 50 mls/hr Q20H IV 01/08/19 10:00 02/06/19 09:59 01/10/19 22:35 Diphenhydramine HCl (Benadryl) 25 mg Q6H PRN ORAL Itching/Pruritis 01/02/19 07:30 01/29/19 07:29 01/03/19 23:14 Hydralazine HCl (Apresoline) 25 mg Q6H PRN ORAL sbp above 160 01/08/19 09:15 02/07/19 08:45 01/11/19 01:22 Hydralazine HCl (Apresoline) 25 mg TID ORAL 01/09/19 09:45 02/08/19 09:44 01/11/19 09:31 Lansoprazole (Prevacid) 30 mg BIAC ORAL 01/04/19 20:00 02/03/19 19:59 01/11/19 06:06 Metoprolol Tartrate (Lopressor) 75 mg Q12HR ORAL 01/08/19 09:00 01/30/19 20:59 01/11/19 09:31 Nitroglycerin (Ntg) 0.4 mg Q5M X 3 DOSES PRN SL Prn Chest Pain 01/02/19 07:15 01/29/19 00:59 Ondansetron HCl (Zofran) 4 mg Q6H PRN IVP Nausea & Vomiting 01/02/19 08:00 01/29/19 07:59 Polyethylene Glycol (Miralax) 17 gm HSPRN PRN ORAL Constipation 01/02/19 21:00 02/01/19 20:59 Temazepam (Restoril) 15 mg HSPRN PRN ORAL Insomnia 01/08/19 21:00 01/15/19 20:59 Joy Huertas MD Jan 11, 2019 11:28
[2019-01-11] MEDS: HydrALAZINE 50mg tab ORAL SCH ×2 (12:19→18:41)
--- NOTE | 2019-01-11 14:54 | NUR ---
DISCHARGE PLANNED PATIENT IS RETURNING TO [facility] T: [phone] FOR NURSE TO NURSE REPORT [facility] HAS BEEN ARRANGED FOR 1600 HOUSEKEEPING/LAUNDRY
--- NOTE | 2019-01-11 15:44 | NUR ---
SPEECH PATHOLOGY: S: PATIENT CLEARED FOR ST INTERVENTION BY REJI MORGAN. PER RN, PATIENT TOLERATING CURRENT DIET WITH NO OVERT S/S OF ASPIRATION O; DYSPHAGIA MANAGEMENT A: PATIENT PRESENTS WITH SUFFICIENT P.O. INTAKE TO SUPPORT NUTRITION/ HYDRATION NEEDS. P.O. INTAKE AVERAGING 75-100% OF EACH MEAL EGD COMPLETED AND POSITIVE FOR GASTRITIS P: CONTINUE PER PLAN.
--- NOTE | 2019-01-11 15:57 | NUR ---
NURSE NOTES: Received patient from REJI Pires. VSS and patient non-verbal but appeared calm with no overt sign of distress. Breathing easily on RA. No sign of cardiac distress. Tolerated 100% of pureed food and cleared by speech therapist today. HTN closely monitored. Originally planned for dc but BP elevated and Dr Aguilar cancelling dc for now while he can change his meds to get better control of HTN. Condom cath removed by patient x3 but voided multiple times clear yellow. No BM today. Bed in lowest, locked position and call garnica in reach with frequent bedside checks for safety and comfort by this RN and other staff. Cont'd with plan of care. Addendum: 01/11/19 at 1999 by Gregorio Farris RN [facility] called to notify that patient being held here for high BP. non clinical advisor notified family of patient staying [facility] for close BP monitoring per
--- NOTE | 2019-01-11 17:02 | Internal Med Progress Note ---
Subjective Date of Service: Jan 11, 2019 Physician Name Nicholas Chandler Attending Physician Ted Dunn MD Current Medications Medications (Trade) Dose Ordered Sig/Barby Route PRN Reason Start Time Stop Time Status Last Admin Dose Admin Acetaminophen (Tylenol) 650 mg Q4H PRN ORAL T>100.5 01/02/19 08:00 01/29/19 07:59 Atorvastatin Calcium (Lipitor) 20 mg BEDTIME ORAL 01/02/19 21:00 01/30/19 20:59 01/10/19 21:55 Clonidine HCl (Catapres Tab) 0.1 mg Q4H PRN ORAL For High Blood Pressure 01/11/19 11:45 02/10/19 11:44 01/11/19 16:23 Dextrose (Dextrose 50%) 25 ml Q30M PRN IV Hypoglycemia 01/02/19 07:30 01/29/19 00:59 Dextrose (Dextrose 50%) 50 ml Q30M PRN IV Hypoglycemia 01/02/19 07:30 01/29/19 00:59 Diphenhydramine HCl (Benadryl) 25 mg Q6H PRN ORAL Itching/Pruritis 01/02/19 07:30 01/29/19 07:29 01/03/19 23:14 Hydralazine HCl (Apresoline) 25 mg Q6H PRN ORAL sbp above 160 01/08/19 09:15 02/07/19 08:45 01/11/19 01:22 Hydralazine HCl (Apresoline) 50 mg TID ORAL 01/11/19 13:00 02/08/19 09:44 01/11/19 12:19 Lansoprazole (Prevacid) 30 mg BIAC ORAL 01/04/19 20:00 02/03/19 19:59 01/11/19 16:22 Metoprolol Tartrate (Lopressor) 75 mg Q12HR ORAL 01/08/19 09:00 01/30/19 20:59 01/11/19 09:31 Nitroglycerin (Ntg) 0.4 mg Q5M X 3 DOSES PRN SL Prn Chest Pain 01/02/19 07:15 01/29/19 00:59 Ondansetron HCl (Zofran) 4 mg Q6H PRN IVP Nausea & Vomiting 01/02/19 08:00 01/29/19 07:59 Polyethylene Glycol (Miralax) 17 gm HSPRN PRN ORAL Constipation 01/02/19 21:00 02/01/19 20:59 Temazepam (Restoril) 15 mg HSPRN PRN ORAL Insomnia 01/08/19 21:00 01/15/19 20:59 Allergies: Coded Allergies: No Known Allergies (Unverified , 12/29/18) ROS Limited/Unobtainable: No Constitutional: Reports: no symptoms HEENT: Reports: no symptoms Cardiovascular: Reports: no symptoms Respiratory: Reports: no symptoms Gastrointestinal/Abdominal: Reports: no symptoms Genitourinary: Reports: no symptoms Neurologic/Psychiatric: Reports: no symptoms Subjective 68 YO M admitted with Gastrointestinal hemorrhage. Cover for Int Med-DR Dunn. S/P endoscopy 01/10/19 Objective Last Vital Signs Date Time Temp Pulse Resp B/P (MAP) Pulse Ox O2 Delivery O2 Flow Rate FiO2 01/11/19 16:23 160/102 01/11/19 12:00 98.7 73 97 01/11/19 08:00 20 01/10/19 21:00 Room Air 01/10/19 13:49 3 Laboratory Tests Test 01/11/19 06:45 White Blood Count 6.4 K/UL (4.8-10.8) Red Blood Count 4.44 M/UL (4.70-6.10) L Hemoglobin 13.5 G/DL (14.2-18.0) L Hematocrit 41.2 % (42.0-52.0) L Mean Corpuscular Volume 93 FL (80-99) Mean Corpuscular Hemoglobin 30.3 PG (27.0-31.0) Mean Corpuscular Hemoglobin Concent 32.7 G/DL (32.0-36.0) Red Cell Distribution Width 12.9 % (11.6-14.8) Platelet Count 268 K/UL (150-450) Mean Platelet Volume 5.1 FL (6.5-10.1) L Neutrophils (%) (Auto) 61.6 % (45.0-75.0) Lymphocytes (%) (Auto) 22.1 % (20.0-45.0) Monocytes (%) (Auto) 11.1 % (1.0-10.0) H Eosinophils (%) (Auto) 4.2 % (0.0-3.0) H Basophils (%) (Auto) 1.0 % (0.0-2.0) Sodium Level 141 MMOL/L (136-145) Potassium Level 3.4 MMOL/L (3.5-5.1) L Chloride Level 108 MMOL/L (98-107) H Carbon Dioxide Level 26 MMOL/L (21-32) Anion Gap 7 mmol/L (5-15) Blood Urea Nitrogen 9 mg/dL (7-18) Creatinine 0.9 MG/DL (0.55-1.30) Estimat Glomerular Filtration Rate > 60 mL/min (>60) Glucose Level 105 MG/DL (74-106) # Calcium Level 8.9 MG/DL (8.5-10.1) Intake and Output 01/10/19 01/11/19 19:00 07:00 Intake Total 490 ml 120 ml Output Total 600 ml 300 ml Balance -110 ml -180 ml Intake Oral 240 ml 120 ml IV Total 250 ml Output Urine Total 600 ml 300 ml # Voids 1 Objective PHYSICAL EXAMINATION: GENERALLY: The patient is a well-developed and well-nourished female, in no apparent distress. HEENT: Eyes, pupils are equal and responsive to light and accommodation. Extraocular movements are intact. NECK: Supple without lymphadenopathy. CHEST: Lungs are clear to auscultation bilaterally without wheezes or rales. CARDIOVASCULAR: Regular rhythm and rate. S1 and S2 are normal without murmurs, rubs, or gallops. ABDOMEN: Soft, nontender, and nondistended. Positive bowel sounds. No evidence of hepatosplenomegaly. Currently, no rebound or guarding noted. EXTREMITIES: Negative for clubbing, cyanosis, or edema. RECTAL/GENITAL: Not performed. NEUROLOGIC: Cranial nerves II through XII are grossly intact. Assessment/Plan Assessment/Plan ASSESSMENT: This is a 68-year-old male. 1. Gastrointestinal hemorrhage. 2. Hypertension. 3. Hypercholesterolemia. 4. Cerebrovascular disease. 5. Hemiplegia. 6. Aphasia. 7. Elevated troponin. 8. Gastritis TREATMENT: 1. Gastrointestinal hemorrhage. A Gastroenterology consultation has been obtained with Dr. Bib Banegas. S/P endoscopy 01/10/19=Gastritis 2. Hypertension. Continue enalapril and diltiazem as above. Continue metoprolol as above. 3. Hypercholesterolemia. Continue atorvastatin as above. 4. Cerebrovascular disease/hemiplegia/aphasia. Hold aspirin for now due to gastrointestinal hemorrhage. 5. Elevated troponin. A Cardiology consultation=Dr Aguilar. 6. Discharge to [facility] today Nicholas Chandler MD Jan 11, 2019 17:02
--- NOTE | 2019-01-11 18:17 | Cardiac Electrophysiology PN ---
Assessment/Plan Assessment/Plan 1. Troponin elevation. The levels are flat 0.13, 0.14, 0.14. The patient denies any CP or SOB. His 12-lead EKG showed sinus rhythm with left ventricular hypertrophy with nonspecific ST-T wave abnormality. We will treat the patient medically with beta-anderson and statin. Off aspirin for GI bleed Nuclear stress test cancelled by Dr Santana for AMS 2. Hypertension.Increase metoprolol to 100 mg bid and increase Hydralazine to 50 tid On PRN 3. GI bleed. The patient's hemoglobin is stable at around 14. EGD per Dr Banegas showed gastritis DW RN Subjective Subjective BP was high again and received Clonidine. Had EGD yesterday that showed Gastritis. [facility] did not accept PT as BP still high Objective Last 24 Hour Vital Signs Date Time Temp Pulse Resp B/P (MAP) Pulse Ox O2 Delivery O2 Flow Rate FiO2 01/11/19 17:09 168/99 (122) 01/11/19 16:23 160/102 01/11/19 16:20 160/102 (121) 01/11/19 16:18 162/100 (120) 01/11/19 15:53 155/86 (109) 01/11/19 15:50 162/100 (120) 01/11/19 13:23 158/97 (117) 01/11/19 12:51 160/101 (120) 01/11/19 12:19 183/88 01/11/19 12:00 98.7 73 183/88 (119) 97 01/11/19 12:00 68 01/11/19 09:31 151/100 01/11/19 09:31 76 151/100 01/11/19 08:00 67 01/11/19 08:00 98.2 76 20 151/100 (117) 98 01/11/19 04:00 97.8 82 20 160/105 (123) 96 01/11/19 04:00 73 01/11/19 02:22 158/98 (118) 01/11/19 01:22 170/103 01/11/19 00:00 97.6 83 18 170/103 (125) 96 01/11/19 00:00 83 01/10/19 21:57 109 161/97 01/10/19 21:00 Room Air 01/10/19 20:00 115 01/10/19 20:00 97.2 109 19 161/97 (118) 95 Intake and Output 01/10/19 01/11/19 19:00 07:00 Intake Total 490 ml 120 ml Output Total 600 ml 300 ml Balance -110 ml -180 ml Intake Oral 240 ml 120 ml IV Total 250 ml Output Urine Total 600 ml 300 ml # Voids 1 Laboratory Tests Test 01/11/19 06:45 White Blood Count 6.4 K/UL (4.8-10.8) Red Blood Count 4.44 M/UL (4.70-6.10) L Hemoglobin 13.5 G/DL (14.2-18.0) L Hematocrit 41.2 % (42.0-52.0) L Mean Corpuscular Volume 93 FL (80-99) Mean Corpuscular Hemoglobin 30.3 PG (27.0-31.0) Mean Corpuscular Hemoglobin Concent 32.7 G/DL (32.0-36.0) Red Cell Distribution Width 12.9 % (11.6-14.8) Platelet Count 268 K/UL (150-450) Mean Platelet Volume 5.1 FL (6.5-10.1) L Neutrophils (%) (Auto) 61.6 % (45.0-75.0) Lymphocytes (%) (Auto) 22.1 % (20.0-45.0) Monocytes (%) (Auto) 11.1 % (1.0-10.0) H Eosinophils (%) (Auto) 4.2 % (0.0-3.0) H Basophils (%) (Auto) 1.0 % (0.0-2.0) Sodium Level 141 MMOL/L (136-145) Potassium Level 3.4 MMOL/L (3.5-5.1) L Chloride Level 108 MMOL/L (98-107) H Carbon Dioxide Level 26 MMOL/L (21-32) Anion Gap 7 mmol/L (5-15) Blood Urea Nitrogen 9 mg/dL (7-18) Creatinine 0.9 MG/DL (0.55-1.30) Estimat Glomerular Filtration Rate > 60 mL/min (>60) Glucose Level 105 MG/DL (74-106) # Calcium Level 8.9 MG/DL (8.5-10.1) Objective HEAD AND NECK: showed no JVD. LUNGS: Clear. CARDIOVASCULAR: Shows regular S1 and S2 with no gallop. ABDOMEN: Soft. EXTREMITIES: No pitting edema. Juan Carlos Aguilar MD Jan 11, 2019 18:17
--- NOTE | 2019-01-11 19:30 | NUR ---
NURSE NOTES: Received report from REJI Longoria. Pt is resting in bed. In no acute distress. IV line intact and patent. Bed in lowest position, call light within reach. Will continue plan of care.
[2019-01-11] MEDS: Atorvastatin 20mg tab ORAL SCH (20:58)
[2019-01-12] VITALS: BP 158/98
[2019-01-12 04:00] VITALS: BP 160/88
[2019-01-12 06:24] LABS: BASOPHILS % (AUTO) 1.5 % (0.0-2.0); EOSINOPHILS % (AUTO) 6.9 % (0.0-3.0); HEMATOCRIT 44.1 % (42.0-52.0); HEMOGLOBIN 14.3 G/DL (14.2-18.0); LYMPHOCYTES % (AUTO) 25.5 % (20.0-45.0); MEAN CORPUSCULAR VOLUME 94 FL (80-99); MONOCYTES % (AUTO) 8.9 % (1.0-10.0); NEUTROPHILS % (AUTO) 57.2 % (45.0-75.0); PLATELET COUNT 262 K/UL (150-450); RED BLOOD COUNT 4.69 M/UL (4.70-6.10); RED CELL DISTRIBUTION WIDTH 13.2 % (11.6-14.8); WHITE BLOOD COUNT 6.3 K/UL (4.8-10.8)
[2019-01-12 06:45] LABS: ANION GAP 5 mmol/L (5-15); BLOOD UREA NITROGEN 10 mg/dL (7-18); CALCIUM 9.1 MG/DL (8.5-10.1); CARBON DIOXIDE 26 MMOL/L (21-32); CHLORIDE 110 MMOL/L (98-107); CREATININE 0.9 MG/DL (0.55-1.30); POTASSIUM 4.3 MMOL/L (3.5-5.1); SODIUM 141 MMOL/L (136-145)
--- NOTE | 2019-01-12 07:14 | NUR ---
HAND-OFF: Report given to REJI Longoria.
[2019-01-12 08:00] VITALS: BP 144/105
[2019-01-12] MEDS: HydrALAZINE 50mg tab ORAL SCH ×2 (09:58→12:14)
--- NOTE | 2019-01-12 10:08 | GI Progress Note ---
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 ICD Codes: I69.359 - Hemiplegia and hemiparesis following cerebral infarction affecting unspecified side SNOMED: 216119227 (3) History of CVA (cerebrovascular accident) ICD Codes: Z86.73 - Personal history of transient ischemic attack (TIA), and cerebral infarction without residual deficits SNOMED: 755097665 (4) Essential hypertension ICD Codes: I10 - Essential (primary) hypertension SNOMED: 90137742 (5) GI bleed ICD Codes: K92.2 - Gastrointestinal hemorrhage, unspecified SNOMED: 58676747 (6) Elevated troponin ICD Codes: R74.8 - Abnormal levels of other serum enzymes SNOMED: 767097835, 311592209, 053657320 Status: stable Status Narrative Discussed with Dr. Banegas. Assessment/Plan SUMMARY OF FINDINGS: 1. Gastritis, otherwise normal upper endoscopic examination. 2. Small hiatal hernia. RECOMMENDATION: Follow pathology and treat accordingly. fu labs ppi prn transfusions dc planning The patient was seen and examined at bedside and all new and available data was reviewed in the patients chart. I agree with the above findings, impression and plan. (Patient seen earlier today. Signature stamp does not reflect patient encounter time.). - Bib Banegas MD Subjective Subjective limited Objective Last 24 Hour Vital Signs Date Time Temp Pulse Resp B/P (MAP) Pulse Ox O2 Delivery O2 Flow Rate FiO2 01/12/19 09:58 61 144/105 01/12/19 09:58 144/105 01/12/19 08:00 96.8 61 20 144/105 (118) 100 01/12/19 04:00 71 01/12/19 04:00 98.5 71 18 160/88 (112) 98 01/12/19 00:00 68 01/12/19 00:00 97.3 68 20 158/98 (118) 97 01/11/19 21:00 Room Air 01/11/19 20:59 72 153/93 01/11/19 20:00 66 01/11/19 20:00 97.3 66 20 153/93 (113) 97 01/11/19 19:48 153/100 (117) 01/11/19 18:41 154/103 01/11/19 17:09 168/99 (122) 01/11/19 16:23 160/102 01/11/19 16:20 160/102 (121) 01/11/19 16:18 162/100 (120) 01/11/19 16:00 78 01/11/19 15:53 155/86 (109) 01/11/19 15:50 162/100 (120) 01/11/19 13:23 158/97 (117) 01/11/19 12:51 160/101 (120) 01/11/19 12:19 183/88 01/11/19 12:00 98.7 73 183/88 (119) 97 01/11/19 12:00 68 Intake and Output 01/11/19 01/12/19 19:00 07:00 Intake Total 500 ml 120 ml Output Total 550 ml Balance -50 ml 120 ml Intake Oral 500 ml 120 ml Output Urine Total 550 ml # Voids 3 Laboratory Tests Test 01/12/19 05:45 White Blood Count 6.3 K/UL (4.8-10.8) Red Blood Count 4.69 M/UL (4.70-6.10) L Hemoglobin 14.3 G/DL (14.2-18.0) Hematocrit 44.1 % (42.0-52.0) Mean Corpuscular Volume 94 FL (80-99) Mean Corpuscular Hemoglobin 30.4 PG (27.0-31.0) Mean Corpuscular Hemoglobin Concent 32.3 G/DL (32.0-36.0) Red Cell Distribution Width 13.2 % (11.6-14.8) Platelet Count 262 K/UL (150-450) Mean Platelet Volume 5.3 FL (6.5-10.1) L Neutrophils (%) (Auto) 57.2 % (45.0-75.0) Lymphocytes (%) (Auto) 25.5 % (20.0-45.0) Monocytes (%) (Auto) 8.9 % (1.0-10.0) Eosinophils (%) (Auto) 6.9 % (0.0-3.0) H Basophils (%) (Auto) 1.5 % (0.0-2.0) Sodium Level 141 MMOL/L (136-145) Potassium Level 4.3 MMOL/L (3.5-5.1) Chloride Level 110 MMOL/L (98-107) H Carbon Dioxide Level 26 MMOL/L (21-32) Anion Gap 5 mmol/L (5-15) Blood Urea Nitrogen 10 mg/dL (7-18) Creatinine 0.9 MG/DL (0.55-1.30) Estimat Glomerular Filtration Rate > 60 mL/min (>60) Glucose Level 84 MG/DL (74-106) Calcium Level 9.1 MG/DL (8.5-10.1) Height (Feet): 5 Height (Inches): 4.00 Weight (Pounds): 154 General Appearance: no apparent distress Cardiovascular: normal rate Respiratory/Chest: normal breath sounds, no respiratory distress Abdominal Exam: normal bowel sounds, non tender, soft Extremities: non-tender Heather Gonzalez NP Jan 12, 2019 10:08
[2019-01-12 10:30] VITALS: BP 141/94
--- NOTE | 2019-01-12 10:55 | Pulmonology Progress Note ---
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 h/h stable iv fluids check electrolytes dc to retirement Subjective ROS Limited/Unobtainable: No Constitutional: Reports: no symptoms HEENT: Repors: no symptoms Respiratory: Reports: no symptoms Allergies: Coded Allergies: No Known Allergies (Unverified , 12/29/18) Objective Last 24 Hour Vital Signs Date Time Temp Pulse Resp B/P (MAP) Pulse Ox O2 Delivery O2 Flow Rate FiO2 01/12/19 10:30 141/94 (110) 01/12/19 09:58 61 144/105 01/12/19 09:58 144/105 01/12/19 08:00 96.8 61 20 144/105 (118) 100 01/12/19 08:00 59 01/12/19 04:00 71 01/12/19 04:00 98.5 71 18 160/88 (112) 98 01/12/19 00:00 68 01/12/19 00:00 97.3 68 20 158/98 (118) 97 01/11/19 21:00 Room Air 01/11/19 20:59 72 153/93 01/11/19 20:00 66 01/11/19 20:00 97.3 66 20 153/93 (113) 97 01/11/19 19:48 153/100 (117) 01/11/19 18:41 154/103 01/11/19 17:09 168/99 (122) 01/11/19 16:23 160/102 01/11/19 16:20 160/102 (121) 01/11/19 16:18 162/100 (120) 01/11/19 16:00 78 01/11/19 15:53 155/86 (109) 01/11/19 15:50 162/100 (120) 01/11/19 13:23 158/97 (117) 01/11/19 12:51 160/101 (120) 01/11/19 12:19 183/88 01/11/19 12:00 98.7 73 183/88 (119) 97 01/11/19 12:00 68 Intake and Output 01/11/19 01/12/19 19:00 07:00 Intake Total 500 ml 240 ml Output Total 550 ml Balance -50 ml 240 ml Intake Oral 500 ml 240 ml Output Urine Total 550 ml # Voids 3 General Appearance: WD/WN HEENT: normocephalic, atraumatic Respiratory/Chest: chest wall non-tender, lungs clear Cardiovascular: normal peripheral pulses, normal rate Abdomen: normal bowel sounds Genitourinary: normal external genitalia Laboratory Tests 01/12/19 05:45: White Blood Count 6.3, Red Blood Count 4.69L, Hemoglobin 14.3, Hematocrit 44.1, Mean Corpuscular Volume 94, Mean Corpuscular Hemoglobin 30.4, Mean Corpuscular Hemoglobin Concent 32.3, Red Cell Distribution Width 13.2, Platelet Count 262, Mean Platelet Volume 5.3L, Neutrophils (%) (Auto) 57.2, Lymphocytes (%) (Auto) 25.5, Monocytes (%) (Auto) 8.9, Eosinophils (%) (Auto) 6.9H, Basophils (%) (Auto ) 1.5, Sodium Level 141, Potassium Level 4.3, Chloride Level 110H, Carbon Dioxide Level 26, Anion Gap 5, Blood Urea Nitrogen 10, Creatinine 0.9, Estimat Glomerular Filtration Rate > 60, Glucose Level 84, Calcium Level 9.1 Current Medications Medications (Trade) Dose Ordered Sig/Barby Route PRN Reason Start Time Stop Time Status Last Admin Dose Admin Acetaminophen (Tylenol) 650 mg Q4H PRN ORAL T>100.5 01/02/19 08:00 01/29/19 07:59 Atorvastatin Calcium (Lipitor) 20 mg BEDTIME ORAL 01/02/19 21:00 01/30/19 20:59 01/11/19 20:58 Clonidine HCl (Catapres Tab) 0.1 mg Q4H PRN ORAL For High Blood Pressure 01/11/19 11:45 02/10/19 11:44 01/11/19 16:23 Dextrose (Dextrose 50%) 25 ml Q30M PRN IV Hypoglycemia 01/02/19 07:30 01/29/19 00:59 Dextrose (Dextrose 50%) 50 ml Q30M PRN IV Hypoglycemia 01/02/19 07:30 01/29/19 00:59 Diphenhydramine HCl (Benadryl) 25 mg Q6H PRN ORAL Itching/Pruritis 01/02/19 07:30 01/29/19 07:29 01/03/19 23:14 Hydralazine HCl (Apresoline) 25 mg Q6H PRN ORAL sbp above 160 01/08/19 09:15 02/07/19 08:45 01/11/19 01:22 Hydralazine HCl (Apresoline) 50 mg TID ORAL 01/11/19 13:00 02/08/19 09:44 01/12/19 09:58 Lansoprazole (Prevacid) 30 mg BIAC ORAL 01/04/19 20:00 02/03/19 19:59 01/12/19 06:11 Metoprolol Tartrate (Lopressor) 100 mg Q12HR ORAL 01/11/19 21:00 01/30/19 20:59 01/12/19 09:58 Nitroglycerin (Ntg) 0.4 mg Q5M X 3 DOSES PRN SL Prn Chest Pain 01/02/19 07:15 01/29/19 00:59 Ondansetron HCl (Zofran) 4 mg Q6H PRN IVP Nausea & Vomiting 01/02/19 08:00 01/29/19 07:59 Polyethylene Glycol (Miralax) 17 gm HSPRN PRN ORAL Constipation 01/02/19 21:00 02/01/19 20:59 Temazepam (Restoril) 15 mg HSPRN PRN ORAL Insomnia 01/08/19 21:00 01/15/19 20:59 Joy Huertas MD Jan 12, 2019 10:55
--- NOTE | 2019-01-12 10:55 | NUR ---
NURSE NOTES: AOX1, aphasic as previously noted. Patient has no overt signs of pain. Breathing easily on RA wtih O2 sats in mid 90% range. Bed in lowest, locked position. Call garnica in reach--frequent bedside visits to ensure patient safety. Turn adn position q2HR. Voided clear yellow urine. No BM this morning. Tolerated 100% of pureed breakfast. BP closely monitored : most recent two vitals showed SBP in 140s with NSR on tele and no sign of cardiac or respiratory distress. Called RN supervisor prop making at [facility] Caterina Adames, this morning after confirming with tory lincoln (Susan) and Dr Huertas that patient was cleared to dc. Caterina stated they are ready to receive Mr Clemons back to [facility]. Susan to ask for ETA of ambulance for transport. Cont'd with plan of care. Addendum: 01/12/19 at 1615 by Gregorio Farris RN Spoke with Caterina at [facility] this morning who authorized patient to return. Ambulance delayed-- called to give report again and spoke with Jamal. Reported BP of 156/94 and no sign of bleeding. Patient appeared to be at baseline. Jamal agreed to receive patient. Removed IV and returned tele box. Left message for family (Breanna ) and attempted to call two other fam members listed on patient's chart to inform them that patient moved back to [place]. Unable to reach any family members. Yesterday, spoke with Breanna to report that he had the dc order removed yesterday, but would go today after BP addressed with card.
[2019-01-12] MEDS ORDERED: LOPRESSOR25 M1 ORAL (10:58)
--- NOTE | 2019-01-12 11:36 | Internal Med Progress Note ---
Subjective Date of Service: Jan 12, 2019 Physician Name Nicholas Chandler Attending Physician Ted Dunn MD Current Medications Medications (Trade) Dose Ordered Sig/Babry Route PRN Reason Start Time Stop Time Status Last Admin Dose Admin Acetaminophen (Tylenol) 650 mg Q4H PRN ORAL T>100.5 01/02/19 08:00 01/29/19 07:59 Atorvastatin Calcium (Lipitor) 20 mg BEDTIME ORAL 01/02/19 21:00 01/30/19 20:59 01/11/19 20:58 Clonidine HCl (Catapres Tab) 0.1 mg Q4H PRN ORAL For High Blood Pressure 01/11/19 11:45 02/10/19 11:44 01/11/19 16:23 Dextrose (Dextrose 50%) 25 ml Q30M PRN IV Hypoglycemia 01/02/19 07:30 01/29/19 00:59 Dextrose (Dextrose 50%) 50 ml Q30M PRN IV Hypoglycemia 01/02/19 07:30 01/29/19 00:59 Diphenhydramine HCl (Benadryl) 25 mg Q6H PRN ORAL Itching/Pruritis 01/02/19 07:30 01/29/19 07:29 01/03/19 23:14 Hydralazine HCl (Apresoline) 25 mg Q6H PRN ORAL sbp above 160 01/08/19 09:15 02/07/19 08:45 01/11/19 01:22 Hydralazine HCl (Apresoline) 50 mg TID ORAL 01/11/19 13:00 02/08/19 09:44 01/12/19 09:58 Lansoprazole (Prevacid) 30 mg BIAC ORAL 01/04/19 20:00 02/03/19 19:59 01/12/19 06:11 Metoprolol Tartrate (Lopressor) 100 mg Q12HR ORAL 01/11/19 21:00 01/30/19 20:59 01/12/19 09:58 Nitroglycerin (Ntg) 0.4 mg Q5M X 3 DOSES PRN SL Prn Chest Pain 01/02/19 07:15 01/29/19 00:59 Ondansetron HCl (Zofran) 4 mg Q6H PRN IVP Nausea & Vomiting 01/02/19 08:00 01/29/19 07:59 Polyethylene Glycol (Miralax) 17 gm HSPRN PRN ORAL Constipation 01/02/19 21:00 02/01/19 20:59 Temazepam (Restoril) 15 mg HSPRN PRN ORAL Insomnia 01/08/19 21:00 01/15/19 20:59 Allergies: Coded Allergies: No Known Allergies (Unverified , 12/29/18) ROS Limited/Unobtainable: Yes Subjective 68 YO M admitted with Gastrointestinal hemorrhage. Cover for Int Med-DR Dunn. S/P endoscopy 01/10/19 Objective Last Vital Signs Date Time Temp Pulse Resp B/P (MAP) Pulse Ox O2 Delivery O2 Flow Rate FiO2 01/12/19 10:30 141/94 (110) 01/12/19 09:58 61 01/12/19 08:00 96.8 20 100 01/11/19 21:00 Room Air 01/10/19 13:49 3 Laboratory Tests Test 01/12/19 05:45 White Blood Count 6.3 K/UL (4.8-10.8) Red Blood Count 4.69 M/UL (4.70-6.10) L Hemoglobin 14.3 G/DL (14.2-18.0) Hematocrit 44.1 % (42.0-52.0) Mean Corpuscular Volume 94 FL (80-99) Mean Corpuscular Hemoglobin 30.4 PG (27.0-31.0) Mean Corpuscular Hemoglobin Concent 32.3 G/DL (32.0-36.0) Red Cell Distribution Width 13.2 % (11.6-14.8) Platelet Count 262 K/UL (150-450) Mean Platelet Volume 5.3 FL (6.5-10.1) L Neutrophils (%) (Auto) 57.2 % (45.0-75.0) Lymphocytes (%) (Auto) 25.5 % (20.0-45.0) Monocytes (%) (Auto) 8.9 % (1.0-10.0) Eosinophils (%) (Auto) 6.9 % (0.0-3.0) H Basophils (%) (Auto) 1.5 % (0.0-2.0) Sodium Level 141 MMOL/L (136-145) Potassium Level 4.3 MMOL/L (3.5-5.1) Chloride Level 110 MMOL/L (98-107) H Carbon Dioxide Level 26 MMOL/L (21-32) Anion Gap 5 mmol/L (5-15) Blood Urea Nitrogen 10 mg/dL (7-18) Creatinine 0.9 MG/DL (0.55-1.30) Estimat Glomerular Filtration Rate > 60 mL/min (>60) Glucose Level 84 MG/DL (74-106) Calcium Level 9.1 MG/DL (8.5-10.1) Intake and Output 01/11/19 01/12/19 19:00 07:00 Intake Total 500 ml 240 ml Output Total 550 ml Balance -50 ml 240 ml Intake Oral 500 ml 240 ml Output Urine Total 550 ml # Voids 3 Objective PHYSICAL EXAMINATION: GENERALLY: The patient is a well-developed and well-nourished female, in no apparent distress. HEENT: Eyes, pupils are equal and responsive to light and accommodation. Extraocular movements are intact. NECK: Supple without lymphadenopathy. CHEST: Lungs are clear to auscultation bilaterally without wheezes or rales. CARDIOVASCULAR: Regular rhythm and rate. S1 and S2 are normal without murmurs, rubs, or gallops. ABDOMEN: Soft, nontender, and nondistended. Positive bowel sounds. No evidence of hepatosplenomegaly. Currently, no rebound or guarding noted. EXTREMITIES: Negative for clubbing, cyanosis, or edema. RECTAL/GENITAL: Not performed. NEUROLOGIC: Cranial nerves II through XII are grossly intact. Assessment/Plan Assessment/Plan ASSESSMENT: This is a 68-year-old male. 1. Gastrointestinal hemorrhage. 2. Hypertension. 3. Hypercholesterolemia. 4. Cerebrovascular disease. 5. Hemiplegia. 6. Aphasia. 7. Elevated troponin. 8. Gastritis TREATMENT: 1. Gastrointestinal hemorrhage. A Gastroenterology consultation has been obtained with Dr. Bib Banegas. S/P endoscopy 01/10/19=Gastritis 2. Hypertension. Continue enalapril and diltiazem as above. Continue metoprolol as above. 3. Hypercholesterolemia. Continue atorvastatin as above. 4. Cerebrovascular disease/hemiplegia/aphasia. Hold aspirin for now due to gastrointestinal hemorrhage. 5. Elevated troponin. A Cardiology consultation=Dr Aguilar. 6. Discharge to [facility] today Nicholas Chandler MD Jan 12, 2019 11:36
[2019-01-12 11:56] VITALS: BP 159/87
--- NOTE | 2019-01-12 13:50 | Cardiac Electrophysiology PN ---
Assessment/Plan Assessment/Plan 1. Troponin elevation. The levels are flat 0.13, 0.14, 0.14. The patient denies any CP or SOB. His 12-lead EKG showed sinus rhythm with left ventricular hypertrophy with nonspecific ST-T wave abnormality. We will treat the patient medically with beta-anderson and statin. Off aspirin for GI bleed Nuclear stress test cancelled by Dr Santana for AMS 2. Hypertension. Better on metoprolol 100 mg bid and Hydralazine 50 tid On PRN 3. GI bleed. The patient's hemoglobin is stable at around 14. EGD showed gastritis DW RN Subjective Subjective BP is better and is being DCed to [facility] Objective Last 24 Hour Vital Signs Date Time Temp Pulse Resp B/P (MAP) Pulse Ox O2 Delivery O2 Flow Rate FiO2 01/12/19 12:14 159/87 01/12/19 11:56 97.6 66 18 159/87 (111) 98 01/12/19 10:30 141/94 (110) 01/12/19 09:58 61 144/105 01/12/19 09:58 144/105 01/12/19 08:00 96.8 61 20 144/105 (118) 100 01/12/19 08:00 59 01/12/19 04:00 71 01/12/19 04:00 98.5 71 18 160/88 (112) 98 01/12/19 00:00 68 01/12/19 00:00 97.3 68 20 158/98 (118) 97 01/11/19 21:00 Room Air 01/11/19 20:59 72 153/93 01/11/19 20:00 66 01/11/19 20:00 97.3 66 20 153/93 (113) 97 01/11/19 19:48 153/100 (117) 01/11/19 18:41 154/103 01/11/19 17:09 168/99 (122) 01/11/19 16:23 160/102 01/11/19 16:20 160/102 (121) 01/11/19 16:18 162/100 (120) 01/11/19 16:00 78 01/11/19 15:53 155/86 (109) 01/11/19 15:50 162/100 (120) Intake and Output 01/11/19 01/12/19 19:00 07:00 Intake Total 500 ml 240 ml Output Total 550 ml Balance -50 ml 240 ml Intake Oral 500 ml 240 ml Output Urine Total 550 ml # Voids 3 Laboratory Tests Test 01/12/19 05:45 White Blood Count 6.3 K/UL (4.8-10.8) Red Blood Count 4.69 M/UL (4.70-6.10) L Hemoglobin 14.3 G/DL (14.2-18.0) Hematocrit 44.1 % (42.0-52.0) Mean Corpuscular Volume 94 FL (80-99) Mean Corpuscular Hemoglobin 30.4 PG (27.0-31.0) Mean Corpuscular Hemoglobin Concent 32.3 G/DL (32.0-36.0) Red Cell Distribution Width 13.2 % (11.6-14.8) Platelet Count 262 K/UL (150-450) Mean Platelet Volume 5.3 FL (6.5-10.1) L Neutrophils (%) (Auto) 57.2 % (45.0-75.0) Lymphocytes (%) (Auto) 25.5 % (20.0-45.0) Monocytes (%) (Auto) 8.9 % (1.0-10.0) Eosinophils (%) (Auto) 6.9 % (0.0-3.0) H Basophils (%) (Auto) 1.5 % (0.0-2.0) Sodium Level 141 MMOL/L (136-145) Potassium Level 4.3 MMOL/L (3.5-5.1) Chloride Level 110 MMOL/L (98-107) H Carbon Dioxide Level 26 MMOL/L (21-32) Anion Gap 5 mmol/L (5-15) Blood Urea Nitrogen 10 mg/dL (7-18) Creatinine 0.9 MG/DL (0.55-1.30) Estimat Glomerular Filtration Rate > 60 mL/min (>60) Glucose Level 84 MG/DL (74-106) Calcium Level 9.1 MG/DL (8.5-10.1) Objective HEAD AND NECK: showed no JVD. LUNGS: Clear. CARDIOVASCULAR: Shows regular S1 and S2 with no gallop. ABDOMEN: Soft. EXTREMITIES: No pitting edema. Juan Carlos Aguilar MD Jan 12, 2019 13:50
[2019-01-12 14:00] VITALS: BP 156/93
--- NOTE | 2019-01-12 15:29 | NUR ---
*-* INSURANCE *-* ALL CLINICALS AND REVIEWS HAVE BEEN FAXED TO: [facility] F: [phone]
[2019-01-12] MEDS ORDERED: D5NS 1000ml IV ONE (16:11)
--- NOTE | 2019-01-13 09:05 | Discharge Summary ---
Discharge Summary Discharge Summary _ DATE OF ADMISSION: 12/30/2018 DATE OF DISCHARGE: 01/12/2019 DISCHARGED BY: Dr. Dunn REASON FOR ADMISSION: 68 years old male with past medical history of CVA with aphasia and hemiplegia, hypertension, dementia, presented from the correction facility after staff noted bright red bloody stool. Upon evaluation vital signs were stable. Laboratory work-up revealed stable hemoglobin 15.3, hematocrit 46.5, no leukocytosis. Stable coagulation profile. BUN 21, creatinine 1.0. Troponin elevated 0.133. EKG revealed sinus rhythm, no acute ischemic changes. Albumin 2.8. Urinalysis revealed no evidence of urinary tract infection. Patient admitted for further management CONSULTANTS: marble machine tender Dr. Walls pulmonary/critical care Dr. Huertas GI specialist Dr. Banegas [facility] COURSE: Patient admitted to telemetry floor. Auto Transmission Mechanic and marble machine tender along with GI specialist closely followed. Serial troponin revealed mild elevation , however levels were flat. EKG revealed no acute ischemic changes. Patient did not complain of any chest pain. Patient was treated medically with beta-anderson and statin. No aspirin given due to GI bleeding. Echocardiogram revealed preserved ejection fraction of 60% with mild left ventricular hypertrophy. No evidence of pericardial effusion. Right ventricular systolic pressure of 34. No evidence of wall motion abnormality. Patient was scheduled for nuclear stress test and only, but it was incomplete , only first part was done and revealed no perfusion abnormality on resting imaging. Blood pressure was initially managed with beta-anderson . Blood pressure was not controlled initially. Antihypertensive medication regimen was optimized to include higher dose of metoprolol along with hydralazine. Blood pressure stabilized. Venous duplex bilateral lower extremity revealed no evidence of acute DVT. Supplemental oxygen provided as needed to keep pulse oximetry above 92%. Bronchodilator treatment was on board as needed. Initially EGD was planned for 01/05 but was canceled by anesthesiology due to abnormal EKG. GI prophylaxis provided. Potassium was replaced. Swallow evaluation revealed evidence of dysphagia. Strict aspiration precautions were maintained. Diet texture provided as per speech therapist recommendation. Continue dysphagia management at the correction facility. Manager Discovery subsequently cleared patient for EGD. Patient subsequently undergone upper endoscopy with biopsy on 01/10 , which revealed evidence of gastritis , otherwise normal upper endoscopic examination. Small hiatal hernia noted. Pathology report revealed mild to moderate chronic gastritis , but was negative for Helicobacter pylori. Patient clinically stabilized. No further episodes of bleeding. Aspirin on hold. Hemoglobin and hematocrit were closely monitored with goal to keep hemoglobin above 7. Prior to discharge, hemoglobin 12, hematocrit 37.1. Blood pressure improved. Patient was stable for discharge to correction facility for continuation of care FINAL DIAGNOSES: Rectal bleeding /GI hemorrhage Status post upper endoscopy and biopsy Gastritis History of CVA with aphasia and hemiplegia Hypertensive urgency Elevated troponin Hyperlipidemia Dysphagia Hypokalemia DISCHARGE MEDICATIONS: See Medication Reconciliation list. DISCHARGE INSTRUCTIONS: Patient was discharged to the correction facility. Follow up with medical doctor at the facility. Cami Soriano NP Jan 13, 2019 09:05
--- NOTE | 2019-01-13 10:44 | NUR ---
*-* INSURANCE *-*- ALL CLINICALS AND REVIEWS HAVE BEEN FAXED TO: NEW INFORMATION PROVIDED BY ADMITTING: Graphic Production Artist: Queta Buckley -no direct ph# [facility] ph#[phone] fax#[phone]
--- NOTE | 2019-01-13 12:13 | Cardiology Report ---
APPROVED REPORT EKG Measurement Heart [id number] Sinus rhythm with premature atrial complexes Left axis deviation Inferior infarct, age undetermined T wave abnormality, consider lateral ischemia Abnormal ECG
--- NOTE | 2019-01-13 12:20 | Cardiology Report ---
APPROVED REPORT EKG Measurement Heart [id number] Normal sinus rhythm Left axis deviation Inferior infarct, age undetermined Abnormal ECG
== END 2019-01-12 16:12 | DRG 241 ==
LOC: EDBD 23:21 → EMR 23:35 → EDBEDREQ 23:41 → 2W 12-30 00:12 → EDBEDREQSVC 12-30 00:37 → EDBEDREQ 12-30 00:48 → 2E 01-02 07:24
PROC: 0DB78ZX Excision of Stomach, Pylorus, Via Natural or Artificial Opening Endoscopic, Diagnostic (ICD-10-PCS; principal; 2019-01-10 12:58)
DX: K29.51 Unspecified chronic gastritis with bleeding (principal); I69.320 Aphasia following cerebral infarction; I69.359 Hemiplegia and hemiparesis following cerebral infarction affecting unspecified side; E78.00 Pure hypercholesterolemia, unspecified; I10 Essential (primary) hypertension; K44.9 Diaphragmatic hernia without obstruction or gangrene; F03.90 Unspecified dementia, unspecified severity, without behavioral disturbance, psychotic disturbance, mood disturbance, and anxiety; R74.8 Abnormal levels of other serum enzymes; R13.10 Dysphagia, unspecified; I16.0 Hypertensive urgency; E78.5 Hyperlipidemia, unspecified; E87.6 Hypokalemia; Z79.82 Long term (current) use of aspirin; F29 Unspecified psychosis not due to a substance or known physiological condition
CPT/HCPCS: 36415; 78451; 80048; 80053; 81001; 82150; 82270; 83690; 83735; 84484; 85025; 85610; 85730; 86850; 86900; 86901; 87081; 93005; 93306; 93970; 94003; 94150; 96365; 99285; J2785; J8499